=== PATIENT | male | born 1950 | race Caucasian/White ===

== ENCOUNTER → 2018-08-07 | Day surgery (SDC) | payer MEDICARE ==
[2018-08-05 10:10] LABS: BASOPHILS # (AUTO) 0.1 (0.0-0.1); BASOPHILS % 0.7 % (0.0-1.0); EOSINOPHILS # (AUTO) 0.3 (0.0-0.4); EOSINOPHILS % 3.7 % (0.0-6.0); HEMATOCRIT 45.6 % (38.2-49.6); HEMOGLOBIN 14.6 g/dL (14.0-18.0); LYMPHOCYTES # (AUTO) 1.5 (1.0-3.2); LYMPHOCYTES % 22.2 % (18.0-39.1); MEAN CORPUSCULAR VOLUME 87.4 fL (81-99); MONOCYTES # (AUTO) 0.7 (0.2-0.8); MONOCYTES % 10.2 % (4.4-11.3); NEUTROPHILS # (AUTO) 4.4 (2.1-6.9); NEUTROPHILS % 62.9 % (38.7-80.0); PLATELET COUNT 325 x10e3/uL (140-360); RED BLOOD COUNT 5.22 x10e6/uL (4.3-5.7); RED CELL DISTRIBUTION WIDTH 13.2 % (11.7-14.4)
--- NOTE | 2018-08-05 10:11 | Diagnostic Imaging Report ---
PROCEDURE: X-RAY CHEST, TWO VIEWS COMPARISON: None. INDICATIONS: PREOPERATIVE CHEST XRAY FOR SURGERY FINDINGS: LUNGS: No consolidations or edema. PLEURA: No effusions or pneumothorax. A benign-appearing faint pleural opacity in the right midlung zone laterally. HEART & MEDIASTINUM: The heart is within normal size-limits. BONES & SOFT TISSUES: There are degenerative changes of time. CONCLUSION: No acute thoracic abnormality. Jamie Elaine D.O. Dictated by: Jamie Elaine D.O. on 08/05/2018 at 10:21 Electronically approved by: Jamie Elaine D.O. on 08/05/2018 at 10:21
[2018-08-05 10:27] LABS: ANION GAP 14.4 mmol/L (8-16); CALCIUM 9.7 mg/dL (8.4-10.2); CREATININE, SERUM 1.66 mg/dL (0.72-1.25)
[2018-08-05 10:37] LABS: POTASSIUM 5.4 mmol/L (3.5-5.1)
[~2018-08-07] MED LIST: AMLODIPINE BESYL5 MG PO; ATORVASTATIN CA20 MG PO; BUPIVACAINE 0.5%/EPI 30 ML SDV INJ ONE; CEFAZOLIN SOD 2 GM/D5W 50ML 50 ML IV ONE; DEXAMETHASONE SOD PHOS INJ 4 MG/ML VIAL ONE; FENTANYL CITRATE/PF 100MCG/2 ML INJ ONE; GLIMEPIRIDE2 MG PO; HUMALOG100 UNIT/1 SC; KETOROLAC TROMETHAMINE 30 MG/ML VIAL ONE; LEVEMIR100 UNIT/1 SC; LIDOCAINE HCL 2% LOCAL INJ 5 ML SDV VIAL INJ ONE; MIDAZOLAM HCL 2 MG/2 ML VIAL ONE; MYCOPHENOLATE250 MG PO; ONDANSETRON HCL INJ 2 MG/ML VIAL ONE; PROPOFOL IV EMULSION 10 MG/ML 20 ML VIAL ONE; PYRIDOSTIGMINE60 MG PO; SEVOFLURANE INHAL SOLN 250 ML PEN BTL ONE; VITAMIN D31000 UNI2 PO
--- OUTSIDE RECORDS SUMMARY | 2018-08-07 07:07 | XMS REPORT | Continuity of Care Document ---
Author Author [facility] Interface Address Unknown Phone Unavailable Problems Problem Status Onset Date Classification Date Reported Comments Source THOMASON LT EYE VISION ALTERED Active 01/06/2018 [facility] ABILITY TO EAT Active 01/30/2012 [facility] Acute respiratory failure Active 11/19/2011 Problem 02/04/2012 [facility] Acute respiratory failure Active 11/19/2011 Problem 01/11/2018 [facility] UNABLE TO SWALLOW Active 11/18/2011 [facility] CERVCAL DYSPHGIA/787.20 Active 09/26/2011 [facility] DYSPHAGIA Active 09/20/2011 [facility] DYSPHAGIA. Active 09/20/2011 [facility] Diabetes mellitus Active Problem 02/04/2012 [facility] Dysphagia Active Problem 02/04/2012 [facility] GERD - Gastro-esophageal reflux disease Active Problem 02/04/2012 [facility] Hyperlipidemia Active Problem 02/04/2012 [facility] Myasthenia gravis Active Problem 02/04/2012 [facility] Swallowing Active Problem 02/04/2012 [facility] Diabetes mellitus Active Problem 01/11/2018 [facility] Dysphagia Active Problem 01/11/2018 [facility] hyperlipidemia Active Problem 01/11/2018 [facility] Hyperlipidemia Active Problem 01/11/2018 [facility] Myasthenia gravis Active Problem 01/11/2018 [facility] DIABETIC Active Problem 02/04/2014 [facility] HIGH CHOLESTEROL Active Problem 02/04/2014 [facility] MYOSTHENIA GRAVIS Active Problem 02/04/2014 [facility] DYSPHAGIA NOS Active [facility] DYSPHAGIA, ORAL PHASE Active [facility] SCREEN MALIG NEOP-COLON Active [facility] CEREBRAL INFARCTION, UNSPECIFIED Active [facility] Medications Medication Details Route Status Patient Instructions Ordering Provider Order Date Source insulin glargine 55 unit, 0.55 mL, Route: SUB-Q, Drug form: SOLN, Bedtime, Start date: 01/08/18 21:00:00 CDT, Duration: 30 day, Stop date: 02/06/18 21:00:00 CDTNotes: (Same as: Farshad) Do not hold insulin without contac ting prescriber WASTE: F/P - Black; E - Municipal Trash Bin "single patient use only" Inactive 01/09/2018 [facility] Levemir Route: SUB-Q, Bedtime, Dosing Weight 94.261, kg, Start date: 01/08/18 21:00:00 CDT, Duration: 30 day, Stop date: 02/06/18 21:00:00 CDT Inactive 01/09/2018 [facility] atorvastatin 40 mg, 1 tab, Route: PO, Drug form: TAB, Bedtime, Dosing Weight 94.261, kg, Start date: 01/08/18 21:00:00 CDT, Duration: 30 day, Stop date: 02/06/18 21:00:00 CDTNotes: (Same as: Lipitor) Inactive 01/09/2018 [facility] Glucotrol 10 mg, 1 tab, Route: PO, Drug form: TAB, BID, Start date: 01/08/18 17:00:00 CDT, Duration: 30 day, Stop date: 02/07/18 9:00:00 CDTNotes: (Same as: Glucotrol) 30 min before meals. Inactive 01/08/2018 [facility] glimepiride 4 mg, Route: PO, Drug form: TAB, BID, Dosing Weight 94.261, kg, Start date: 01/08/18 17:00:00 CDT, Duration: 30 day, Stop date: 02/07/18 9:00:00 CDT Inactive 01/08/2018 [facility] Amlodipine 5 mg, 1 tab, Route: PO, Drug form: TAB, Daily, Dosing Weight 94.261, kg, Start date: 01/08/18 12:00:00 CDT, Duration: 30 day, Stop date: 02/07/18 9:00:00 CDTNotes: (Same as: Norvasc) Inactive 01/08/2018 [facility] mycophenolate mofetil 500 mg, 2 cap, Route: PO, Drug form: CAP, Q12H, Dosing Weight 94.261, kg, Start date: 01/08/18 12:00:00 CDT, Duration: 30 day, Stop date: 02/07/18 9:00:00 CDTNotes: SEPARATE ANTACIDS from [facility] by 2 hrs. (Same As: CellCept) Inactive 01/08/2018 [facility] Vitamin D3 1000 intl units oral tablet 1,000 IntlUnit, 1 tab, Route: PO, Drug form: TAB, Daily, Dosing Weight 94.261, kg, Start date: 01/08/18 12:00:00 CDT, Duration: 30 day, Stop date: 02/07/18 9:00:00 CDTNotes: Same as : Vitamin D3 Inactive 01/08/2018 [facility] Aspirin 325 mg, 1 tab, Route: PO, Drug form: ECTAB, Daily, Dosing Weight 94.261, kg, Start date: 01/08/18 12:00:00 CDT, Duration: 30 day, Stop date: 02/07/18 9:00:00 CDTNotes: (Do Not Crush) Do not crush or chew. Inactive 01/08/2018 [facility] Aspirin 325 MG Enteric Coated Tablet 325 mg, PO, Daily, # 100 tab, 0 Refill(s), Pharmacy: [place] [id number] Active 01/08/2018 [facility] Insulin Lispro 8 unit, 0.08 mL, Route: SUB-Q, Drug form: SOLN, TID-Before Meals, Dosing Weight 94.261, kg, PRN Blood Glucose Results, Start date: 01/08/18 9:52:00 CDT, Duration: 30 day, Stop date: 02/07/18 9:51:00 CDTNotes: (Same as: Humalog ) Roll in palms of hands gently; Do not shake `vigorously. "Single Patient Use Only " WASTE: F/P - Black; E - Municipal Trash Bin Stable for 28 days at room temperature. Expires in days from Date Inactive 01/08/2018 [facility] Dextrose 50% Syringe 12.5 gm, 25 mL, Route: IVP, Drug Form: INJ, Dosing Weight 94.261, kg, PRN, PRN Blood Glucose Results, Start date: 01/08/18 9:52:00 CDT, Duration: 30 day, Stop date: 02/07/18 9:51:00 CDT Inactive 01/08/2018 [facility] Glucagon 1 mg, Route: IM, Drug form: PDR/INJ, PRN, Dosing Weight 94.261, kg, PRN Blood Glucose Results, Start date: 01/08/18 9:52:00 CDT, Duration: 30 day, Stop date: 02/07/18 9:51:00 CDT Inactive 01/08/2018 [facility] Aspirin 81 MG Enteric Coated Tablet 325 mg, 1 tab, Route: PO, Drug form: ECTAB, Q24H, Dosing Weight 94.591, kg, Start date: 01/07/18 17:00:00 CDT, Duration: 30 day, Stop date: 02/05/18 17:00:00 CDTNotes: (Do Not Crush) Do not crush or chew. No Longer Active 01/07/2018 [facility] mycophenolate mofetil 500 mg oral tablet 500 mg=1 tab, PO, BID, 0 Refill(s) Active 01/07/2018 [facility] Vitamin D3 1000 intl units oral capsule 1,000 IntlUnit=1 cap, PO, Daily, # 100 cap, 0 Refill(s) Active 01/07/2018 [facility] Humalog 15 unit, SUB-Q, TID, 0 Refill(s) Active 01/07/2018 [facility] Levemir 55 units, SUB-Q, Bedtime, 0 Refill(s) Active 01/07/2018 [facility] Amlodipine 5 mg, PO, Daily, 0 Refill(s) Active 01/07/2018 [facility] glimepiride 4 mg oral tablet 4 mg=1 tab, PO, BID, 0 Refill(s) Active 01/07/2018 [facility] atorvastatin 40 mg oral tablet 40 mg=1 tab, PO, Bedtime, # 30 tab, 0 Refill(s) Active 01/07/2018 [facility] Acetaminophen 325 MG Oral Tablet 325 mg, 1 tab, Route: PO, Drug form: TAB, Q6H, Dosing Weight 94.261, kg, PRN Pain Score 1-3, Start date: 01/06/18 22:56:00 CDT, Duration: 30 day, Stop date: 02/05/18 22:55:00 CDTNotes: Do not exceed 4 gm/day. (Same as: Tylenol) No Longer Active 01/07/2018 [facility] Saline Flush 0.9% 10 ml, Route: IVP, Drug Form: INJ, Dosing Weight 94.591, kg, Q12H, Start date: 01/06/18 21:00:00 CDT, Duration: 30 day, Stop date: 02/05/18 9:00:00 CDTNotes: (Same as: BD Posiflush) No Longer Active 01/07/2018 [facility] Famotidine 20 mg, 1 tab, Route: PO, Drug form: TAB, Q12H, Dosing Weight 94.591, kg, Start date: 01/06/18 21:00:00 CDT, Duration: 30 day, Stop date: 02/05/18 9:00:00 CDTNotes: (Same as: Pepcid) No Longer Active 01/07/2018 [facility] atorvastatin 80 mg, 2 tab, Route: PO, Drug form: TAB, Bedtime, Dosing Weight 94.591, kg, Start date: 01/06/18 21:00:00 CDT, Duration: 30 day, Stop date: 02/04/18 21:00:00 CDTNotes: (Same as: Lipitor) No Longer Active 01/07/2018 [facility] Enoxaparin 40 mg, 0.4 mL, Route: SUB-Q, Drug form: INJ, [id number], Dosing Weight 94.591, kg, Start date: 01/06/18 17:00:00 CDT, Duration: 30 day, Stop date: 02/04/18 17:00:00 CDTNotes: (Same as: Lovenox) No Longer Active 01/06/2018 [facility] Aspirin 81 MG Enteric Coated Tablet 81 mg, 1 tab, Route: PO, Drug form: ECTAB, Q24H, Dosing Weight 94.591, kg, Start date: 01/06/18 16:56:00 CDT, Duration: 30 day, Stop date: 02/04/18 16:56:00 CDTNotes: Do not crush or chew. (Same As: Ecotrin) No Longer Active 01/06/2018 [facility] Saline Flush 0.9% 10 ml, Route: IVP, Drug Form: INJ, Dosing Weight 94.591, kg, PRN, PRN Line Flush, Start date: 01/06/18 16:46:00 CDT, Duration: 30 day, Stop date: 02/05/18 16:45:00 CDTNotes: (Same as: BD Posiflush) No Longer Active 01/06/2018 [facility] Ondansetron 4 mg, 2 mL, Route: IVP, Drug form: INJ, Q8H, Dosing Weight 94.591, kg, PRN Nausea & Vomiting, Start date: 01/06/18 16:46:00 CDT, Duration: 30 day, Stop date: 02/05/18 16:45:00 CDTNotes: (Same as: Zofran) MEDICATION WASTE Product Size: 4 mg Product Wasted: ___ mg No Longer Active 01/06/2018 [facility] Aspirin 324 mg, 4 tab, Route: CHEW, Drug form: CHEWTAB, ONCE, Dosing Weight 94.591, kg, Priority: STAT, Start date: 01/06/18 15:55:00 CDT, Stop date: 01/06/18 15:55:00 CDTNotes: Take with food. Inactive 01/06/2018 [facility] Saline Flush 0.9% 10 mL, Route: IVP, Drug Form: INJ, Dosing Weight 77.727, kg, PRN, PRN Line Flush, Start date: 01/06/18 14:35:00 CDT, Duration: 30 day, Stop date: 02/05/18 14:34:00 CDTNotes: (Same as: BD Posiflush) No Longer Active 01/06/2018 [facility] VANO Ophth Combo 1 drops, Soln, Eye-Operative, q5min, order duration: 3 doses, first dose 02/02/14 7:35:00 CDT, stop date 02/02/14 7:49:00 CDTVigamox 0.5%: 0.0375 mL Alphagan 0.1%: 0.0375 mL Nevanac 0.1%: 0.0375 mL Omni pred 1%: 0.0375 mL Total Volume: 0.15 mL *Post Op Compound from [facility]* Inactive Bryce 02/02/2014 [facility] fentaNYL 50 mcg=1 mL, Injection, IV Push, q5min PRN for Pain Mild (1-3), order duration: 2 doses, first dose 02/02/14 7:30:00 CDT, stop date Limited # of times Inactive Tyree 02/02/2014 [facility] Demerol HCl 12.5 mg=0.5 mL, Injection, IV Push, q5min PRN for shivers, order duration: 4 doses, first dose 02/02/14 7:30:00 CDT, stop date Limited # of times Inactive Tyree 02/02/2014 [facility] morphine 2 mg, IV Push, q5min PRN for pain severe (7-10), order duration: 5 doses, first dose 02/02/14 7:30:00 CDT, stop date Limited # of times Inactive Tyree 02/02/2014 [facility] ondansetron 4 mg=2 mL, Injection, IV Push, q30min PRN for nausea/vomiting, order duration: 2 doses, first dose 02/02/14 7:30:00 CDT, stop date Limited # of times Inactive Tyree 02/02/2014 [facility] Misc Medication 400 mL, Soln-IV, IV, Once, first dose 02/02/14 7:28:00 CDT, stop date 02/02/14 7:28:00 CDT Inactive Sydnie 02/02/2014 [facility] fentaNYL 50 mcg=1 mL, Injection, IV, Once, first dose 02/02/14 7:20:00 CDT, stop date 02/02/14 7:20:00 CDT Inactive Sydnie 02/02/2014 [facility] midazolam 1 mg=1 mL, Injection, IV, Once, first dose 02/02/14 7:16:00 CDT, stop date 02/02/14 7:16:00 CDT Inactive Sydnie 02/02/2014 [facility] midazolam 1 mg=1 mL, Injection, IV, Once, first dose 02/02/14 7:08:00 CDT, stop date 02/02/14 7:08:00 CDT Inactive Sydnie 02/02/2014 [facility] fentaNYL 50 mcg=1 mL, Injection, IV, Once, first dose 02/02/14 7:08:00 CDT, stop date 02/02/14 7:08:00 CDT Inactive Sydnie 02/02/2014 [facility] ondansetron 4 mg=2 mL, Injection, IV, Once, first dose 02/02/14 7:07:00 CDT, stop date 02/02/14 7:07:00 CDT Inactive Sydnie 02/02/2014 [facility] tetracaine 0.5% ophthalmic solution 1 drops, Soln, Eye- Operative, Once, first dose 02/02/14 7:00:00 CDT, stop date 02/02/14 7:00:00 CDTCompounded from [facility] Inactive Bryce 02/02/2014 [facility] lidocaine 1% injectable solution 5 mg=0.5 mL, Injection, Subcutaneous, Once, first dose 02/02/14 7:00:00 CDT, stop date 02/02/14 7:00:00 CDT Inactive Tyree 02/02/2014 [facility] mydriatic #4 ophth combo 1 drops, Soln, Eye-Operative, q5min, order duration: 3 doses, first dose 02/02/14 6:20:00 CDT, stop date 02/02/14 6:34:00 CDTPhenylephrine 2.5%: 0.1mL Tropicamide 1%: 0.1mL Gatifloxacin 0.3%: 0.1mL Total Volume: 0.3 mL Inactive Bryce 02/02/2014 [facility] LR 500 mL 500 mL, IV, 100 mL/hr, start date 02/02/14 6:19:00 CDT, Adult Eye Procedures or Pain Inactive Tyree 02/02/2014 [facility] sodium polystyrene sulfonate 15 gm, Oral, Daily, 0 Refill(s) Active 01/31/2014 [facility] VANO Ophth Combo 1 drops, Soln, Eye-Operative, q5min, order duration: 3 doses, first dose 01/05/14 8:55:00 CDT, stop date 01/05/14 9:09:00 CDTVigamox 0.5%: 0.0375 mL Alphagan 0.1%: 0.0375 mL Nevanac 0.1%: 0.0375 mL Omni pred 1%: 0.0375 mL Total Volume: 0.15 mL *Post Op Compound from [facility]* Inactive Bryce 01/05/2014 [facility] Misc Medication 250 mL, Soln-IV, IV, Once, first dose 01/05/14 8:52:00 CDT, stop date 01/05/14 8:52:00 CDT Inactive Denise 01/05/2014 [facility] midazolam 2 mg=2 mL, Injection, IV, Once, first dose 01/05/14 8:23:00 CDT, stop date 01/05/14 8:23:00 CDT Inactive Denise 01/05/2014 [facility] midazolam 1 mg=1 mL, Injection, IV, Once, first dose 01/05/14 8:16:00 CDT, stop date 01/05/14 8:16:00 CDT Inactive Denise 01/05/2014 [facility] fentaNYL 50 mcg=1 mL, Injection, IV, Once, first dose 01/05/14 8:16:00 CDT, stop date 01/05/14 8:16:00 CDT Inactive Denise 01/05/2014 [facility] tetracaine 0.5% ophthalmic solution 1 drops, Soln, Eye- Operative, Once, first dose 01/05/14 8:00:00 CDT, stop date 01/05/14 8:00:00 CDTCompounded from [facility] Inactive Bryce 01/05/2014 [facility] LR 500 mL 500 mL, IV, 100 mL/hr, start date 01/05/14 7:41:00 CDT, Adult Eye Procedures or Pain Inactive Afshinerartie 01/05/2014 [facility] mydriatic #4 ophth combo 1 drops, Soln, Eye-Operative, q5min, order duration: 3 doses, first dose 01/05/14 7:40:00 CDT, stop date 01/05/14 7:54:00 CDTPhenylephrine 2.5%: 0.1mL Tropicamide 1%: 0.1mL Gatifloxacin 0.3%: 0.1mL Total Volume: 0.3 mL Inactive Bryce 01/05/2014 [facility] fenofibrate 145 mg oral tablet 145 mg=1 tabs, Oral, Daily, # 30 tabs, 0 Refill(s) Active 01/04/2014 [facility] glyBURIDE Oral, Daily, 0 Refill(s) Active 01/04/2014 [facility] mycophenolate mofetil 500 mg oral tablet mg tabs, Oral, BID, 0 Refill(s) Active 01/04/2014 [facility] lovastatin 40 mg oral tablet 40 mg=1 tabs, Oral, Daily, # 30 tabs, 0 Refill(s) Active 01/04/2014 [facility] metFORMIN 500 mg oral tablet mg tabs, Oral, BID, 0 Refill(s) Active 01/04/2014 [facility] Lactated Ringers Injection IV 1,000 mL 1,000 mL, Rate: 75 ml/hr, Infuse over: 13.3 hr, Route: IV, Dosing Weight 77.727 kg, Total Volume: 1,000, Start date: 02/02/12 11:00:00, Duration: 30 day, Stop date: 03/03/12 10:59:00 IV No Longer Active Bertram 02/02/2012 [facility] predniSONE 40 mg, 2 tab, Route: PO, Drug form: TAB, Daily, Start date: 12/06/11 9:00:00, Duration: 30 day, Stop date: 01/04/12 9:00:00 PO No Longer Active Larry 12/06/2011 [facility] Levemir FlexPen 10 unit, 0.1 mL, Route: SUB-Q, Drug form: INJ, Bedtime, Start date: 12/04/11 21:00:00, Duration: 30 day, Stop date: 01/02/12 21:00:00 SUB-Q No Longer Active Michael 12/05/2011 [facility] methylPREDNISolone 50 mg, 0.8 mL, Route: IV, Drug form: INJ, Q24H, Start date: 12/04/11 16:00:00, Duration: 30 day, Stop date: 01/02/12 16:00:00 IV No Longer Active Larry 12/04/2011 [facility] methylPREDNISolone 100 mg, 1.6 mL, Route: IV, Drug form: INJ, Q24H, Start date: 12/03/11 21:00:00, Duration: 30 day, Stop date: 01/01/12 21:00:00 IV No Longer Active Larry 12/04/2011 [facility] CellCept 500 mg, 2.5 mL, Route: PEG, Drug form: SOLN, Q12H- 06, Start date: 12/02/11 18:00:00, Duration: 30 day, Stop date: 01/01/12 6:00:00 PEG No Longer Active Larry 12/02/2011 [facility] methylPREDNISolone 250 mg, Route: IV, Drug form: INJ, Q24H, Start date: 12/02/11 17:00:00, Duration: 30 day, Stop date: 12/31/11 17:00:00 IV No Longer Active Larry 12/02/2011 [facility] Mestinon 30 mg, 0.5 tab, Route: PEG, Drug form: TAB, Q8H- 01, Start date: 12/01/11 21:00:00, Stop date: 12/31/11 9:00:00 PEG No Longer Active Larry 12/02/2011 [facility] meperidine 50 mg, 1 mL, Route: IV, Drug form: INJ, Q4H, PRN Other -See Comment, Start date: 12/01/11 16:15:00, Duration: 4 day, Stop date: 12/05/11 16:14:00 IV No Longer Active Larry 12/01/2011 [facility] Lactated Ringers Injection IV 1,000 mL 1,000 mL, Rate: TITRATE PER MD, Route: IV, Dosing Weight 73.007 kg, Total Volume: 1,000, Start date: 12/01/11 13:14:00, Duration: 6 hr, Stop date: 12/01/11 19:13:00 IV No Longer Active Bertram 12/01/2011 [facility] methylPREDNISolone 800 mg, Route: IV, Drug form: INJ, QPM, Start date: 11/30/11 17:00:00, Duration: 30 day, Stop date: 12/29/11 17:00:00 IV No Longer Active Larry 11/30/2011 [facility] glucagon 1 mg, Route: SUB-Q, Drug form: PDR/INJ, Sliding Scale, PRN Blood Glucose Results, Start date: 11/29/11 19:32:00, Duration: 30 day, Stop date: 12/29/11 19:31:00 SUB-Q No Longer Active Larry 11/30/2011 [facility] Dextrose 50% in Water IV 50 mL, Route: IVP, Start date: 11/29/11 19:32:00, Duration: 30 day, Stop date: 12/29/11 19:31:00, PRN Blood Glucose Results IVP No Longer Active Larry 11/30/2011 [facility] Dextrose 50% in Water IV 25 mL, Route: IVP, Start date: 11/29/11 19:31:00, Duration: 30 day, Stop date: 12/29/11 19:30:00, PRN Blood Glucose Results IVP No Longer Active Larry 11/30/2011 [facility] NovoLog FlexPen 14 unit, 0.14 mL, Route: SUB-Q, Drug form: SOLN, Sliding Scale, PRN Blood Glucose Results, Start date: 11/29/11 19:31:00, Duration: 30 day, Stop date: 12/29/11 19:30:00 SUB-Q No Longer Active Larry 11/30/2011 [facility] Sodium Chloride 0.9% IV 1,000 mL 1,000 mL, Rate: 40 ml/hr, Infuse over: 25 hr, Route: IV, Dosing Weight 73.007 kg, Total Volume: 1,000, Start date: 11/27/11 15:22:00, Stop date: 12/27/11 15:21:00 IV No Longer Active Michael 11/27/2011 [facility] lactulose 20 gm, 30 mL, Route: PO, Drug form: SYRP, ONCE, Start date: 11/26/11 12:30:00, Stop date: 11/26/11 12:30:00 PO No Longer Active Larry 11/26/2011 [facility] docusate sodium 150 mg/15 mL oral liquid 100 mg, 10 mL, Route: NG, Drug form: LIQ, BID, Start date: 11/26/11 12:00:00, Duration: 30 day, Stop date: 12/26/11 9:00:00 NG No Longer Active Lrary 11/26/2011 [facility] lactulose 20 gm, 30 mL, Route: PO, Drug form: SYRP, Q12H, PRN Constipation, Start date: 11/26/11 11:39:00, Duration: 30 day, Stop date: 12/26/11 11:38:00 PO No Longer Active Larry 11/26/2011 [facility] Insulin regular 100 unit + Sodium Chloride 0.9% IV 99 mL 99 mL, Rate: follow MICU/IMCU insulin drip Protocol, Route: IV, Dosing Weight 73.007 kg, Total Volume: 100, Start date: 11/26/11 7:26:00, Duration: 30 day, Stop date: 12/26/11 7:25:00 IV No Longer Active Larry 11/26/2011 [facility] methylPREDNISolone 1,000 mg, Route: IV, Drug form: INJ, Q24H, Start date: 11/25/11 16:00:00, Duration: 30 day, Stop date: 12/24/11 16:00:00 IV No Longer Active Larry 11/25/2011 [facility] NovoLog FlexPen 17 unit, 0.17 mL, Route: SUB-Q, Drug form: SOLN, Sliding Scale, PRN Blood Glucose Results, Start date: 11/25/11 15:31:00, Duration: 30 day, Stop date: 12/25/11 15:30:00 SUB-Q No Longer Active Larry 11/25/2011 [facility] NovoLog FlexPen 7 unit, 0.07 mL, Route: SUB-Q, Drug form: SOLN, Sliding Scale, PRN Blood Glucose Results, Start date: 11/25/11 15:30:00, Duration: 30 day, Stop date: 12/25/11 15:29:00 SUB-Q No Longer Active Larry 11/25/2011 [facility] Mestinon 60 mg, 1 tab, Route: NG, Drug form: TAB, Q12H, Start date: 11/24/11 15:00:00, Duration: 30 day, Stop date: 12/24/11 9:00:00 NG No Longer Active Larry 11/24/2011 [facility] methylPREDNISolone 1,000 mg, Route: IV, Drug form: INJ, ONCE, Start date: 11/24/11 15:00:00, Stop date: 11/24/11 15:00:00 IV No Longer Active Larry 11/24/2011 [facility] Lovenox 40 mg, 0.4 mL, Route: SUB-Q, Drug form: INJ, [id number], Start date: 11/24/11 14:00:00, Duration: 30 day, Stop date: 12/23/11 14:00:00 SUB-Q No Longer Active Larry 11/24/2011 [facility] DuoNeb inhalation solution 3 mL, Route: NEB, Drug Form: SOLN, RQ6H, Start date: 11/24/11 14:00:00, Duration: 30 day, Stop date: 12/24/11 8:00:00 NEB No Longer Active Larry 11/24/2011 [facility] acetylcysteine 600 mg, 3 mL, Route: NEB, Drug Form: SOLN, RQ6H, Start date: 11/23/11 20:00:00, Duration: 30 day, Stop date: 12/23/11 14:00:00 NEB No Longer Active Larry 11/24/2011 [facility] methylPREDNISolone 125 mg, 2 mL, Route: IV, Drug form: INJ, ONCE, Start date: 11/23/11 19:00:00, Stop date: 11/23/11 19:00:00 IV No Longer Active Larry 11/24/2011 [facility] potassium chloride 40 mEq, 30 mL, Route: PO, Drug form: LIQ, ONCE, Start date: 11/23/11 11:00:00, Stop date: 11/23/11 11:00:00 PO No Longer Active Larry 11/23/2011 [facility] lactulose 20 gm, 30 mL, Route: PO, Drug form: SYRP, ONCE, Start date: 11/22/11 18:00:00, Stop date: 11/22/11 18:00:00 PO No Longer Active Larry 11/22/2011 [facility] lactulose 20 gm, 30 mL, Route: PO, Drug form: SYRP, Bedtime, PRN Constipation, Start date: 11/22/11 16:55:00, Stop date: 11/22/11 23:59:00 PO No Longer Active Larry 11/22/2011 [facility] midazolam 50 mg IV, Start date: 11/20/11 18:47:00, Duration: 30, 50 ml IV No Longer Active Larry 11/20/2011 [facility] Protonix 40 mg, Route: IVP, Drug form: INJ, Before Dinner, Start date: 11/20/11 16:30:00, Duration: 30 day, Stop date: 12/19/11 16:30:00 IVP No Longer Active Larry 11/20/2011 [facility] Sodium Chloride 0.45% IV 1,000 mL 1,000 mL, Rate: 40 ml/hr, Infuse over: 25 hr, Route: IV, Dosing Weight 73 kg, Total Volume: 1,000, Start date: 11/20/11 12:58:00, Stop date: 12/20/11 12:57:00 IV No Longer Active Lrary 11/20/2011 [facility] albuterol 2.5 mg, 0.5 mL, Route: INHALATION, Drug form: SOLN, RQ6H, Start date: 11/19/11 20:00:00, Duration: 30 day, Stop date: 12/19/11 14:00:00 INHALATION No Longer Active Larry 11/20/2011 [facility] sodium chloride 0.9% Inhalation 3 mL, Route: INHALATION, Drug Form: MISC, RQ6H, Start date: 11/19/11 20:00:00, Duration: 30 day, Stop date: 12/19/11 14:00:00 INHALATION No Longer Active Larry 11/20/2011 [facility] Merrem 500 mg, Route: IVPB, [id number], Start date: 11/19/11 18:00:00, Duration: 30 day, Stop date: 12/19/11 16:00:00 IVPB No Longer Active Larry 11/19/2011 [facility] succinylcholine 100 mg, 5 mL, Route: IV, Drug form: INJ, ONCE, Start date: 11/19/11 18:00:00, Stop date: 11/19/11 18:00:00 IV No Longer Active Larry 11/19/2011 [facility] midazolam 2 mg, 2 mL, Route: IV, Drug form: INJ, ONCE, Start date: 11/19/11 18:00:00, Stop date: 11/19/11 18:00:00 IV No Longer Active Larry 11/19/2011 [facility] Privigen 30 gm, 300 mL, Route: IVPB, Drug form: SOLN, QPM, Start date: 11/19/11 18:00:00, Duration: 5 doses or times, Stop date: 11/23/11 17:00:00 IVPB No Longer Active Larry 11/19/2011 [facility] propofol 10 mg/ml (titrate) 1,000 mg IV, Start date: 11/19/11 17:34:00, Duration: 30, 100 ml IV No Longer Active Larry 11/19/2011 [facility] Protonix 40 mg, Route: IV, Drug form: INJ, Q12H, Start date: 11/19/11 12:00:00, Duration: 30 day, Stop date: 12/19/11 9:00:00 IV No Longer Active Bertram 11/19/2011 [facility] pneumococcal 23-valent vaccine 0.5 ml, Route: IM, Drug Form: INJ, Start date: 11/19/11 9:00:00, Stop date: 11/19/11 9:00:00 IM No Longer Active SYSTEM 11/19/2011 [facility] influenza virus vaccine, inactivated 0.5 mL, Route: IM, Drug Form: INJ, Start date: 11/19/11 9:00:00, Stop date: 11/19/11 9:00:00 IM No Longer Active SYSTEM 11/19/2011 [facility] glucagon 1 mg, Route: SUB-Q, Drug form: PDR/INJ, Sliding Scale, PRN Blood Glucose Results, Start date: 11/18/11 20:43:00, Duration: 30 day, Stop date: 12/18/11 20:42:00 SUB-Q No Longer Active Larry 11/19/2011 [facility] Dextrose 50% in Water IV 50 mL, Route: IVP, Start date: 11/18/11 20:43:00, Duration: 30 day, Stop date: 12/18/11 20:42:00, PRN Blood Glucose Results IVP No Longer Active Larry 11/19/2011 [facility] NovoLog FlexPen 15 unit, 0.15 mL, Route: SUB-Q, Drug form: SOLN, Sliding Scale, PRN Blood Glucose Results, Start date: 11/18/11 20:43:00, Duration: 30 day, Stop date: 12/18/11 20:42:00 SUB-Q No Longer Active [facility] 11/19/2011 [facility] NovoLog FlexPen 11 unit, 0.11 mL, Route: SUB-Q, Drug form: SOLN, Sliding Scale, PRN Blood Glucose Results, Start date: 11/18/11 20:42:00, Duration: 30 day, Stop date: 12/18/11 20:41:00 SUB-Q No Longer Active Larry 11/19/2011 [facility] Sodium Chloride 0.9% IV 1,000 mL 1,000 mL, Rate: 100 ml/hr, Infuse over: 10 hr, Route: IV, kg, Total Volume: 1,000, Start date: 11/18/11 20:42:00, Duration: 30 day, Stop date: 12/19/11 14:08:00 IV No Longer Active Larry 11/19/2011 [facility] BD Normal Saline Flush 10 mL, Route: IV, Drug Form: INJ, PRN, PRN Line Flush, Start date: 11/18/11 20:41:00, Duration: 30 day, Stop date: 12/18/11 20:40:00 IV No Longer Active Larry 11/19/2011 [facility] Saline Flush 0.9% 5 ml, Route: IVP, Drug Form: INJ, PRN, PRN Line Flush, Start date: 11/18/11 18:25:00, Duration: 24 hr, Stop date: 11/19/11 18:24:00 IVP No Longer Active [place] 11/18/2011 [facility] NS (Bolus) IV 1,000 mL 1,000 mL, Rate: 100 ml/hr, Infuse over: 10 hr, Route: IV, Dosing Weight 70.455 kg, Total Volume: 1,000, Start date: 11/18/11 16:20:00, Duration: 1 day, Stop date: 11/19/11 16:19:00 IV No Longer Active [place] 11/18/2011 [facility] Kalexate Substitution Allowed Active 11/18/2011 [facility] lisinopril Substitution Allowed Active 11/18/2011 [facility] pyridostigmine Substitution Allowed Active 11/18/2011 [facility] Crestor Substitution Allowed Active 11/18/2011 [facility] glyBURIDE Substitution Allowed Active 11/18/2011 [facility] metFORmin Substitution Allowed Active 11/18/2011 [facility] lidocaine 0.1 mL, Route: INJ, Drug form: INJ, ONCALL, Start date: 09/25/11 9:00:00, Duration: 6 hr, Stop date: 09/25/11 14:59:00 INJ No Longer Active [place] 09/25/2011 [facility] Sodium Chloride 0.45% IV 1,000 mL 1,000 mL, Rate: DIRECTED, Rate: 0 ml/hr, Infuse over: 0, Route: IV, Total Volume: 1,000, Start date: 09/25/11 8:35:00, Duration: 6 hr, Stop date: 09/25/11 14:34:00 IV No Longer Active [place] 09/25/2011 [facility] Allergies, Adverse Reactions, Alerts Substance Category Reaction Severity Reaction type Status Date Reported Comments Source No Known Medication Allergies drug allergy Allergy [facility] Immunizations Immunization Date Given Site Status Last Updated Comments Source pneumococcal 23-valent vaccine 11/19/2011 Not Given [facility] influenza virus vaccine, inactivated 11/19/2011 [facility] [address] [facility] Results Order Name Results Value Reference Range Date Interpretation Comments Source Brain wo contrast MRA Brain wo contrast MRA Patient Name: SHYANN NAPIER : 1950. Age: 67 years. Gender: Male. MR: [id number]. Location: [facility]. Provider: MD Jesse Timmons MD. EXAM: 1. Brain wo contrast MRI 2. Brain wo contrast MRA. PROVIDED CLINICAL HISTORY: Stroke. Headache. Vision changes. TECHNIQUE: -- MR Brain: Multi-sequence, multi-planar MR of the brain without gadolinium contrast. -- MRA Brain: [id number] MR angiography of the [place] and intracranial arteries. MIP reformats. COMPARISON: CT Brain performed FINDINGS: MR BRAIN: BRAIN: -- ADC map-confirmed restricted diffusion, consistent with acute infarct, involving a substantial portion of the the right posterior cerebral artery territory. No other definite areas of abnormally-restricted diffusion. -- Few subcentimeter foci of abnormally increased T2 and FLAIR signal scattered throughout the supratentorial subcortical and periventricular deep white matter bilaterally, non-specific but most commonly due to early chronic small vessel ischemic disease. -- No intracranial hemorrhage. No other fluid collection. No intracranial mass. No cerebellar tonsillar ectopia. Age-consistent brain parenchymal volume. VENTRICLES / CISTERNS / SHIFT: No hydrocephalus. No significant effacement of the basal cisterns or foramen magnum. No significant midline shift. VESSELS: No loss of flow voids within the major intracranial vessels or dural sinuses. Vessel and dural sinus patency are not adequately assessed without dedicated angiography or venography. BONES / SCALP: No acute fracture. No significant systemic marrow signal abnormality. No aggressive bony lesions. No significant extracranial soft tissue abnormality. IMAGED SINUSES / MASTOIDS: No significant sinus mucosal thickening. No significant paranasal sinus fluid. No significant mastoid signal abnormality. MRA BRAIN: GENERAL ASSESSMENT: -- The [place], petrous and cavernous segments of the internal carotid arteries, the middle (M1, M2), anterior (A1, A2), and posterior (P1, P2) cerebral arteries, the basilar artery, and the imaged distal vertebral arteries are evaluated. Significant stenoses and aneurysms are detailed below. -- No definite evidence of malformation, dissection, or other significant abnormality of the imaged arteries. STENOSIS / OCCLUSION: No significant flow-limiting stenosis. No abrupt termination of flow suggestive of occlusion. ANEURYSM: No definite intracranial aneurysm. Limited exam sensitivity and specificity for aneurysms smaller than 0.3 cm. VARIANT ANATOMY: No right or left posterior communicating artery is identified. IMPRESSION (MR Brain, MRA Brain): 1. 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 2. No intracranial mass or hemorrhage. 3. Mild chronic microangiopathic ischemic gliosis. 4. No significant abnormality of the intracranial arteries. SL: [id number] 01/07/2018 - - Read by: Jayesh Simmons MD Dictated Date/time: 01/07/18 12:30 Electronically Signed by: Jayesh Simmons MD 01/07/18 13:09 FINAL REPORT [facility] Brain wo contrast MRI Brain wo contrast MRI Patient Name: SHYANN NAPIER : 1950. Age: 67 years. Gender: Male. MR: [id number]. Location: [facility]. Provider: MD Jesse Timmons MD. EXAM: 1. Brain wo contrast MRI 2. Brain wo contrast MRA. PROVIDED CLINICAL HISTORY: Stroke. Headache. Vision changes. TECHNIQUE: -- MR Brain: Multi-sequence, multi-planar MR of the brain without gadolinium contrast. -- MRA Brain: [id number] MR angiography of the [place] and intracranial arteries. MIP reformats. COMPARISON: CT Brain performed FINDINGS: MR BRAIN: BRAIN: -- ADC map-confirmed restricted diffusion, consistent with acute infarct, involving a substantial portion of the the right posterior cerebral artery territory. No other definite areas of abnormally-restricted diffusion. -- Few subcentimeter foci of abnormally increased T2 and FLAIR signal scattered throughout the supratentorial subcortical and periventricular deep white matter bilaterally, non-specific but most commonly due to early chronic small vessel ischemic disease. -- No intracranial hemorrhage. No other fluid collection. No intracranial mass. No cerebellar tonsillar ectopia. Age-consistent brain parenchymal volume. VENTRICLES / CISTERNS / SHIFT: No hydrocephalus. No significant effacement of the basal cisterns or foramen magnum. No significant midline shift. VESSELS: No loss of flow voids within the major intracranial vessels or dural sinuses. Vessel and dural sinus patency are not adequately assessed without dedicated angiography or venography. BONES / SCALP: No acute fracture. No significant systemic marrow signal abnormality. No aggressive bony lesions. No significant extracranial soft tissue abnormality. IMAGED SINUSES / MASTOIDS: No significant sinus mucosal thickening. No significant paranasal sinus fluid. No significant mastoid signal abnormality. MRA BRAIN: GENERAL ASSESSMENT: -- The [place], petrous and cavernous segments of the internal carotid arteries, the middle (M1, M2), anterior (A1, A2), and posterior (P1, P2) cerebral arteries, the basilar artery, and the imaged distal vertebral arteries are evaluated. Significant stenoses and aneurysms are detailed below. -- No definite evidence of malformation, dissection, or other significant abnormality of the imaged arteries. STENOSIS / OCCLUSION: No significant flow-limiting stenosis. No abrupt termination of flow suggestive of occlusion. ANEURYSM: No definite intracranial aneurysm. Limited exam sensitivity and specificity for aneurysms smaller than 0.3 cm. VARIANT ANATOMY: No right or left posterior communicating artery is identified. IMPRESSION (MR Brain, MRA Brain): 1. 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 2. No intracranial mass or hemorrhage. 3. Mild chronic microangiopathic ischemic gliosis. 4. No significant abnormality of the intracranial arteries. SL: [id number] 01/07/2018 - - Read by: Jayesh Simmons MD Dictated Date/time: 01/07/18 12:30 Electronically Signed by: Jayesh Simmosn MD 01/07/18 13:09 FINAL REPORT [facility] Carotid artery Doppler bilat Carotid artery Doppler bilat Patient Name: SHYANN NAPIER : 1950; Age: 67 years Male MR: [id number] Study: Carotid artery Doppler bilat US 01/06/2018 4:46 PM CDT CLINICAL INDICATION: - CVA. COMPARISON: None TECHNIQUE: Meyer-scale, color Doppler and spectral Doppler of the carotid arteries was performed. Any reported ICA stenoses indirectly references the distal internal carotid diameter as the denominator for the stenosis measurement, utilizing consensus panel criteria. FINDINGS: RIGHT: Mild calcified plaque within the carotid bulb ICA PSV 73.3 cm/sec CCA PSV 61.5 cm/sec ICA/CCA ratio 1.2 Vertebral flow is antegrade. External carotid artery is patent. LEFT: Mild calcified plaque within the carotid bulb ICA PSV 70.7 cm/sec CCA PSV 84.3 cm/sec ICA/CCA ratio 0.84 Vertebral flow is antegrade. External carotid artery is patent. IMPRESSION: RIGHT: ICA stenosis <50% by velocity criteria. LEFT: ICA stenosis <50% by velocity criteria. Consensus panel Doppler US criteria for diagnosis of ICA stenosis: Stenosis (%) ICA PSV (cm/sec) ICA/CCA ratio <50 <125 <2.0 50-69 125-230 2.0-4.0 >70 but less than >230 >4.0 near occlusion Near occlusion High, low, or Variable undetectable SL: MOE 01/06/2018 - - Read by: Nakul Richard MD Dictated Date/time: 01/06/18 22:29 Electronically Signed by: Nakul Richard MD 01/06/18 22:30 FINAL REPORT [facility] CARDIAC ENZYMES Total CK 245 unit/L 12 - 191 01/06/2018 [facility] CARDIAC ENZYMES Troponin-I null 0.00 - 0.40 01/06/2018 [facility] ELECTROLYTES AGAP 9.6 meq/L 10.0 - 20.0 01/06/2018 [facility] ELECTROLYTES eGFR 36 mL/min/1.73m2 01/06/2018 Result Comment: The eGFR is calculated using the CKD-EPI formula. In most young, healthy individuals the eGFR will be >90 mL/min/1.73m2. The eGFR declines with age. An eGFR of 60-89 may be normal in some populations, particularly the elderly, for whom the CKD-EPI formula has not been extensively validated. Use of the eGFR is not recommended in the following populations: Individuals with unstable creatinine concentrations, including patients and those with serious co-morbid conditions. Patients with extremes in muscle mass or diet. The data above are obtained from the National Kidney Disease Education Program (NKDEP) which additionally recommends that when the eGFR is used in patients with extremes of body mass index for purposes of drug dosing, the eGFR should be multiplied by the estimated BMI. [facility] ELECTROLYTES CO2 28 meq/L 24 - 32 01/06/2018 [facility] ELECTROLYTES Chloride Lvl 106 meq/L 95 - 109 01/06/2018 [facility] ELECTROLYTES Potassium Lvl 4.6 meq/L 3.5 - 5.1 01/06/2018 [facility] ELECTROLYTES Sodium Lvl 139 meq/L 135 - 145 01/06/2018 [facility] ELECTROLYTES Creatinine Lvl 1.88 mg/dL 0.50 - 1.40 01/06/2018 [facility] ELECTROLYTES BUN 23 mg/dL 7 - 22 01/06/2018 [facility] ELECTROLYTES Glucose Lvl 223 mg/dL 70 - 99 01/06/2018 [facility] ELECTROLYTES Calcium Lvl 8.9 mg/dL 8.5 - 10.5 01/06/2018 [facility] PT 13.6 s 12.0 - 14.7 01/06/2018 [facility] INR 1.04 0.85 - 1.17 01/06/2018 [facility] PTT 27.5 s 22.9 - 35.8 01/06/2018 [facility] Platelet 285 K/CMM 133 - 450 01/06/2018 [facility] RDW 14.3 % 11.5 - 14.5 01/06/2018 [facility] MPV 9.1 fL 7.4 - 10.4 01/06/2018 [facility] MCV 84.7 fL 80.0 - 94.0 01/06/2018 [facility] MCHC 33.1 g/dL 32.0 - 36.0 01/06/2018 [facility] MCH 28.1 pg 27.0 - 31.0 01/06/2018 [facility] Hct 48.3 % 42.0 - 54.0 01/06/2018 [facility] Hgb 16.0 g/dL 14.0 - 18.0 01/06/2018 [facility] WBC 7.7 K/CMM 3.7 - 10.4 01/06/2018 [facility] HEMATOLOGY RBC 5.70 M/CMM 4.70 - 6.10 01/06/2018 [facility] HEMATOLOGY Segs 78.4 % 45.0 - 75.0 01/06/2018 [facility] HEMATOLOGY Basophils 0.6 % 0.0 - 1.0 01/06/2018 [facility] HEMATOLOGY Lymphocytes 13.3 % 20.0 - 40.0 01/06/2018 [facility] HEMATOLOGY Monocytes 7.3 % 2.0 - 12.0 01/06/2018 [facility] HEMATOLOGY Lymphocytes # 1.0 K/CMM 1.0 - 5.5 01/06/2018 [facility] HEMATOLOGY Monocytes # 0.6 K/CMM 0.0 - 0.8 01/06/2018 [facility] HEMATOLOGY Segs-Bands # 6.1 K/CMM 1.5 - 8.1 01/06/2018 [facility] HEMATOLOGY Eosinophils 0.4 % 0.0 - 4.0 01/06/2018 [facility] LIPIDS CHD Risk 2.72 4.00 - 7.30 01/06/2018 [facility] LIPIDS HDL 47 mg/dL >=61 mg/dL 01/06/2018 [facility] LIPIDS Trig 235 mg/dL <=149 mg/dL 01/06/2018 [facility] LIPIDS Chol 128 mg/dL <=199 mg/dL 01/06/2018 [facility] LIPIDS LDL (Calculated) 34 mg/dL <=99 mg/dL 01/06/2018 [facility] LIPIDS VLDL 47 01/06/2018 [facility] SPECIAL CHEMISTRY Hgb A1C 6.9 % <=5.6 % 01/06/2018 [facility] Chest 1view DX Chest 1view DX Clinical Indication: - weakness Comparison: 11/29/2011 FINDINGS: HEART: Mild cardiomegaly. PULMONARY VASCULATURE: Mild pulmonary vasculature congestion versus perihilar nonspecific airspace opacity. LUNGS: Lung volumes are maintained. There are no pneumothoraces noted. Costophrenic sulci: -Right costophrenic sulcus: The right costophrenic sulcus is sharp without evidence for pleural effusions or thickening. -Left costophrenic sulcus: The left costophrenic sulcus is sharp without evidence for pleural effusions or thickening. BONES: The visualized osseous structures are unremarkable. IMPRESSION: 1. Mild cardiomegaly with mild pulmonary vascular congestion versus nonspecific airspace infiltrate, worse. SL: [id number] 01/06/2018 - - Read by: Petar Martins DO Dictated Date/time: 01/06/18 16:15 Electronically Signed by: Petar Martins DO 01/06/18 16:19 FINAL REPORT [facility] Brain wo contrast CT Brain wo contrast CT CT HEAD WITHOUT CONTRAST: HISTORY: Headache. Vision changes. PROCEDURE: Multiple axial images from the skull base to the skull vertex were obtained without contrast. Coronal and sagittal reconstructed images were performed. DLP: 1058 mGy-cm COMPARISON: None FINDINGS: 4.3 cm area of decreased density in the inferior right occipital lobe is ill-defined and demonstrates mild mass effect due to edema. No other area of decreased density is identified. No acute hemorrhage, midline shift, extra-axial fluid collection, or hydrocephalus is present. The visualized mastoid air cells are clear. There is no air-fluid level in the visualized paranasal sinuses. Distal internal carotid arterial calcifications are present. IMPRESSION: Acute (or subacute) nonhemorrhagic infarct in inferior right occipital lobe. SL: [id number] 01/06/2018 - - Read by: Karlo Piña MD Dictated Date/time: 01/06/18 15:13 Electronically Signed by: Karlo Piña MD 01/06/18 15:15 FINAL REPORT [facility] BEDSIDE GLUCOSE TESTING Gluc POC Lifscn 197 mg/dL 70 - 99 12/08/2011 [place] 2Interpretive Data: Upper Reportable Limit: 200 mg/dL. [facility] BEDSIDE GLUCOSE TESTING Gluc POC Lifscn 129 mg/dL 70 - 99 12/08/2011 [place] 3Interpretive Data: Upper Reportable Limit: 200 mg/dL. [facility] BEDSIDE GLUCOSE TESTING Gluc POC Lifscn 82 mg/dL 70 - 99 12/08/2011 Normal 4Interpretive Data: Upper Reportable Limit: 200 mg/dL. [facility] BEDSIDE GLUCOSE TESTING Comment1 Notify RN 12/05/2011 NA [facility] BEDSIDE GLUCOSE TESTING Comment1 Notify RN 12/05/2011 NA [facility] BEDSIDE GLUCOSE TESTING Comment1 Notify RN 12/05/2011 NA [facility] CHEMISTRY CO2 32 meq/L 24 - 32 12/05/2011 Normal [facility] CHEMISTRY Total Protein 5.6 g/dL 6.4 - 8.4 12/05/2011 LOW [facility] CHEMISTRY Calcium Lvl 7.3 mg/dL 8.5 - 10.5 12/05/2011 LOW [facility] CHEMISTRY Albumin Lvl 2.0 g/dL 3.5 - 5.0 12/05/2011 LOW [facility] CHEMISTRY ALT 238 U/L 0 - 65 12/05/2011 [facility] CHEMISTRY Alk Phos 95 U/L 39 - 136 12/05/2011 Normal [facility] CHEMISTRY Bili Total 0.4 mg/dL 0.2 - 1.3 12/05/2011 Normal [facility] CHEMISTRY AST 96 U/L 0 - 37 12/05/2011 [facility] CHEMISTRY Potassium Lvl 3.9 meq/L 3.5 - 5.1 12/05/2011 Normal [facility] CHEMISTRY Chloride Lvl 106 meq/L 95 - 109 12/05/2011 Normal [facility] CHEMISTRY Glucose Lvl 139 mg/dL 70 - 99 12/05/2011 [place] 5Interpretive Data: Adult reference range values reflect the clinical guidelinesof the [place] [employer]. [facility] CHEMISTRY BUN 31 mg/dL 7 - 22 12/05/2011 [facility] CHEMISTRY Creatinine Lvl 0.9 mg/dL 0.5 - 1.4 12/05/2011 Normal [facility] CHEMISTRY Sodium Lvl 142 meq/L 135 - 145 12/05/2011 Normal [facility] CHEMISTRY Globulin 3.6 g/dL 2.0 - 4.0 12/05/2011 Normal [facility] CHEMISTRY A/G Ratio 0.6 0.7 - 1.6 12/05/2011 LOW [facility] CHEMISTRY AGAP 7.9 meq/L 10.0 - 20.0 12/05/2011 LOW [facility] CHEMISTRY B/C Ratio 34 6 - 25 12/05/2011 [facility] HEMATOLOGY Lymphocytes # 0.8 K/CMM 1.0 - 5.5 12/05/2011 LOW [facility] HEMATOLOGY Eosinophils 1.1 % 0.0 - 4.0 12/05/2011 Normal [facility] HEMATOLOGY Basophils 0.2 % 0.0 - 1.0 12/05/2011 Normal [facility] HEMATOLOGY Segs-Bands # 5.0 K/CMM 1.5 - 8.1 12/05/2011 Normal [facility] HEMATOLOGY Basophils # 0.0 K/CMM 0.0 - 0.2 12/05/2011 Normal [facility] HEMATOLOGY Eosinophils # 0.1 K/CMM 0.0 - 0.5 12/05/2011 Normal [facility] HEMATOLOGY Monocytes # 0.4 K/CMM 0.0 - 0.8 12/05/2011 Normal [facility] HEMATOLOGY Segs 79.8 % 45.0 - 75.0 12/05/2011 [facility] HEMATOLOGY Monocytes 6.2 % 2.0 - 12.0 12/05/2011 Normal [facility] HEMATOLOGY Lymphocytes 12.7 % 20.0 - 40.0 12/05/2011 LOW [facility] HEMATOLOGY Platelet 170 K/CMM 133 - 450 12/05/2011 Normal [facility] HEMATOLOGY MPV 8.6 fL 7.4 - 10.4 12/05/2011 Normal [facility] HEMATOLOGY MCHC 34.0 g/dL 32.0 - 36.0 12/05/2011 Normal [facility] HEMATOLOGY RDW 14.5 % 11.5 - 14.5 12/05/2011 Normal [facility] HEMATOLOGY WBC 6.3 K/CMM 3.7 - 10.4 12/05/2011 Normal [facility] HEMATOLOGY RBC 3.75 M/CMM 4.70 - 6.10 12/05/2011 LOW [facility] HEMATOLOGY Hgb 11.1 g/dL 14.0 - 18.0 12/05/2011 LOW [facility] HEMATOLOGY MCV 87.1 fL 80.0 - 94.0 12/05/2011 Normal [facility] HEMATOLOGY Hct 32.6 % 42.0 - 54.0 12/05/2011 LOW [facility] HEMATOLOGY MCH 29.7 pg 27.0 - 31.0 12/05/2011 Normal [facility] CHEMISTRY Hgb A1C 5.6 % 12/04/2011 NA 9Interpretive Data: HbA1C% eAG(mg/dL) Interpretation 6.0 126 Very good control 6.5 140 Very good control 7.0 154 Good Control 7.5 169 Good Control 8.0 183 Marginal Control, take action to lower 8.5 197 Marginal Control, take action to lower 9.0 212 Poor Control, take action to lower 9.5 226 Poor Control, take action to lower10.0 240 Poor Control, take action to lower [facility] CHEMISTRY A/G Ratio 0.6 0.7 - 1.6 12/04/2011 LOW [facility] CHEMISTRY AGAP 9.3 meq/L 10.0 - 20.0 12/04/2011 LOW [facility] CHEMISTRY Globulin 3.8 g/dL 2.0 - 4.0 12/04/2011 Normal [facility] CHEMISTRY B/C Ratio 43 6 - 25 12/04/2011 [facility] CHEMISTRY AST 178 U/L 0 - 37 12/04/2011 [facility] CHEMISTRY CO2 30 meq/L 24 - 32 12/04/2011 Normal [facility] CHEMISTRY Potassium Lvl 4.3 meq/L 3.5 - 5.1 12/04/2011 Normal [facility] CHEMISTRY Chloride Lvl 109 meq/L 95 - 109 12/04/2011 Normal [facility] CHEMISTRY Sodium Lvl 144 meq/L 135 - 145 12/04/2011 Normal [facility] CHEMISTRY BUN 39 mg/dL 7 - 22 12/04/2011 [facility] CHEMISTRY Creatinine Lvl 0.9 mg/dL 0.5 - 1.4 12/04/2011 Normal [facility] CHEMISTRY Glucose Lvl 207 mg/dL 70 - 99 12/04/2011 [place] 6Interpretive Data: Adult reference range values reflect the clinical guidelinesof the [place] [employer]. [facility] CHEMISTRY Bili Total 0.6 mg/dL 0.2 - 1.3 12/04/2011 Normal [facility] CHEMISTRY Alk Phos 120 U/L 39 - 136 12/04/2011 Normal [facility] CHEMISTRY ALT 346 U/L 0 - 65 12/04/2011 [facility] CHEMISTRY Total Protein 5.9 g/dL 6.4 - 8.4 12/04/2011 LOW [facility] CHEMISTRY Albumin Lvl 2.1 g/dL 3.5 - 5.0 12/04/2011 LOW [facility] CHEMISTRY Calcium Lvl 7.7 mg/dL 8.5 - 10.5 12/04/2011 LOW [facility] HEMATOLOGY Monocytes # 0.2 K/CMM 0.0 - 0.8 12/04/2011 Normal [facility] HEMATOLOGY Eosinophils # 0.0 K/CMM 0.0 - 0.5 12/04/2011 Normal [facility] HEMATOLOGY Basophils # 0.0 K/CMM 0.0 - 0.2 12/04/2011 Normal [facility] HEMATOLOGY Lymphocytes # 0.2 K/CMM 1.0 - 5.5 12/04/2011 LOW [facility] HEMATOLOGY Segs 93.1 % 45.0 - 75.0 12/04/2011 [facility] HEMATOLOGY Eosinophils 0.1 % 0.0 - 4.0 12/04/2011 Normal [facility] HEMATOLOGY Lymphocytes 4.0 % 20.0 - 40.0 12/04/2011 LOW [facility] HEMATOLOGY Basophils 0.0 % 0.0 - 1.0 12/04/2011 Normal [facility] HEMATOLOGY Monocytes 2.8 % 2.0 - 12.0 12/04/2011 Normal [facility] HEMATOLOGY Segs-Bands # 5.4 K/CMM 1.5 - 8.1 12/04/2011 Normal [facility] HEMATOLOGY MCH 29.3 pg 27.0 - 31.0 12/04/2011 Normal [facility] HEMATOLOGY MCV 87.8 fL 80.0 - 94.0 12/04/2011 Normal [facility] HEMATOLOGY Hct 34.7 % 42.0 - 54.0 12/04/2011 LOW [facility] HEMATOLOGY Hgb 11.6 g/dL 14.0 - 18.0 12/04/2011 LOW [facility] HEMATOLOGY MCHC 33.4 g/dL 32.0 - 36.0 12/04/2011 Normal [facility] HEMATOLOGY WBC 5.8 K/CMM 3.7 - 10.4 12/04/2011 Normal [facility] HEMATOLOGY RDW 15.0 % 11.5 - 14.5 12/04/2011 [facility] HEMATOLOGY RBC 3.95 M/CMM 4.70 - 6.10 12/04/2011 LOW [facility] HEMATOLOGY Platelet 171 K/CMM 133 - 450 12/04/2011 Normal [facility] HEMATOLOGY MPV 9.0 fL 7.4 - 10.4 12/04/2011 Normal [facility] CHEMISTRY A/G Ratio 0.6 0.7 - 1.6 12/02/2011 LOW [facility] CHEMISTRY Globulin 4.1 g/dL 2.0 - 4.0 12/02/2011 [facility] CHEMISTRY AGAP 11.0 meq/L 10.0 - 20.0 12/02/2011 Normal [facility] CHEMISTRY B/C Ratio 58 6 - 25 12/02/2011 [facility] [facility] CO2 29 meq/L 24 - 32 12/02/2011 Normal [facility] Calcium Lvl 8.1 mg/dL 8.5 - 10.5 12/02/2011 LOW [facility]MI[facility] Chloride Lvl 111 meq/L 95 - 109 12/02/2011 [facility] CHEMI[facility]Y Total Protein 6.4 g/dL 6.4 - 8.4 12/02/2011 Normal [facility] AST 73 U/L 0 - 37 12/02/2011 [facility] CHEMI[facility]Y Bili Total 0.6 mg/dL 0.2 - 1.3 12/02/2011 Normal [facility] Alk Phos 73 U/L 39 - 136 12/02/2011 Normal [facility] CHEMISTRY Potassium Lvl 4.0 meq/L 3.5 - 5.1 12/02/2011 Normal [facility] CHEMISTRY Albumin Lvl 2.3 g/dL 3.5 - 5.0 12/02/2011 LOW [facility] CHEMISTRY ALT 180 U/L 0 - 65 12/02/2011 [facility] CHEMISTRY Sodium Lvl 147 meq/L 135 - 145 12/02/2011 [facility] CHEMISTRY Creatinine Lvl 0.8 mg/dL 0.5 - 1.4 12/02/2011 Normal [facility] CHEMISTRY BUN 46 mg/dL 7 - 22 12/02/2011 [facility] CHEMISTRY Glucose Lvl 165 mg/dL 70 - 99 12/02/2011 [place] 7Interpretive Data: Adult reference range values reflect the clinical guidelinesof the [place] [employer]. [facility] HEMATOLOGY Hgb 11.4 g/dL 14.0 - 18.0 12/02/2011 LOW [facility] HEMATOLOGY RBC 3.98 M/CMM 4.70 - 6.10 12/02/2011 LOW [facility] HEMATOLOGY MCH 28.6 pg 27.0 - 31.0 12/02/2011 Normal [facility] HEMATOLOGY MCV 86.9 fL 80.0 - 94.0 12/02/2011 Normal [facility] HEMATOLOGY Hct 34.6 % 42.0 - 54.0 12/02/2011 LOW [facility] HEMATOLOGY Platelet 239 K/CMM 133 - 450 12/02/2011 Normal [facility] HEMATOLOGY MPV 8.2 fL 7.4 - 10.4 12/02/2011 Normal [facility] HEMATOLOGY WBC 3.8 K/CMM 3.7 - 10.4 12/02/2011 Normal [facility] HEMATOLOGY RDW 14.4 % 11.5 - 14.5 12/02/2011 Normal [facility] HEMATOLOGY MCHC 33.0 g/dL 32.0 - 36.0 12/02/2011 Normal [facility] HEMATOLOGY Lymphocytes # 0.2 K/CMM 1.0 - 5.5 12/02/2011 LOW [facility] HEMATOLOGY Segs-Bands # 3.5 K/CMM 1.5 - 8.1 12/02/2011 Normal [facility] HEMATOLOGY Basophils 0.0 % 0.0 - 1.0 12/02/2011 Normal [facility] HEMATOLOGY Eosinophils 0.0 % 0.0 - 4.0 12/02/2011 Normal [facility] HEMATOLOGY Basophils # 0.0 K/CMM 0.0 - 0.2 12/02/2011 Normal [facility] HEMATOLOGY Eosinophils # 0.0 K/CMM 0.0 - 0.5 12/02/2011 Normal [facility] HEMATOLOGY Monocytes # 0.1 K/CMM 0.0 - 0.8 12/02/2011 Normal [facility] HEMATOLOGY Monocytes 2.0 % 2.0 - 12.0 12/02/2011 Normal [facility] HEMATOLOGY Lymphocytes 5.4 % 20.0 - 40.0 12/02/2011 LOW [facility] HEMATOLOGY Segs 92.6 % 45.0 - 75.0 12/02/2011 HI [facility] HEMATOLOGY PT 15.3 s 12.0 - 14.7 12/01/2011 HI [facility] HEMATOLOGY INR 1.21 0.85 - 1.17 12/01/2011 [place] 10Interpretive Data: RECOMMENDED RANGES FOR PROTIME INR: 2.0-3.0 for most medical and surgical thromboembolic states. 2.5-3.5 for artificial heart valves and recurrent embolism.INR SHOULD BE USED ONLY FOR PATIENTS ON STABLE ANTICOAGULANT THERAPY. [facility] HEMATOLOGY PTT 28.2 s 22.9 - 35.8 12/01/2011 Normal 13Interpretive Data: Heparin Therapeutic Range: 57 - 92 Seconds [facility] CHEMISTRY Bili Direct 0.2 mg/dL 0.0 - 0.3 11/30/2011 Normal [facility] CHEMISTRY Bili Indirect 0.3 mg/dL 0.0 - 1.0 11/30/2011 Normal [facility] HEMATOLOGY PT 14.3 s 12.0 - 14.7 11/30/2011 Normal [facility] INR 1.11 0.85 - 1.17 11/30/2011 Normal 11Interpretive Data: RECOMMENDED RANGES FOR PROTIME INR: 2.0-3.0 for most medical and surgical thromboembolic states. 2.5-3.5 for artificial heart valves and recurrent embolism.INR SHOULD BE USED ONLY FOR PATIENTS ON STABLE ANTICOAGULANT THERAPY. [facility] CHEMISTRY FiO2 Art 35.0 11/29/2011 NA [facility] CHEMISTRY BE Art 6 mMol/L -2-2 - 2 11/29/2011 [facility] CHEMISTRY O2 Sat Art 99.2 % 95.0 - 100.0 11/29/2011 Normal [facility] CHEMISTRY Allens Art Positive (11/29/2011 12:42:00) 11/29/2011 Normal [facility] CHEMISTRY Mode Art Tube Comp 11/29/2011 NA [facility] CHEMISTRY Site Art Right Ra (11/29/2011 12:42:00) 11/29/2011 Normal [facility] pCO2 Art 34 mm[Hg] 35 - 45 11/29/2011 LOW [facility] pO2 Art 129 mm[Hg] 80 - 100 11/29/2011 [facility] CHE[facility] HCO3 Art 28 mMol/L 22 - 26 11/29/2011 [facility] pH Art 7.54 7.35 - 7.45 11/29/2011 [facility] CHE[facility] PEEP Art 5.0 11/29/2011 [facility] CHE[facility] PS Art 12 11/29/2011 [facility] CHE[facility] Vt Art 550 11/29/2011 [facility] CHEMI[facility]Y FiO2 Art 35.0 11/29/2011 [facility] CHEMI[facility]Y Site Art Right Ra (11/29/2011 04:39:00) 11/29/2011 Normal [facility]MI[facility] Allens Art Positive (11/29/2011 04:39:00) 11/29/2011 Normal [facility] Mode Art Simv (11/29/2011 04:39:00) 11/29/2011 Normal [facility] Rate Art 4 11/29/2011 [facility] pO2 Art 107 mm[Hg] 80 - 100 11/29/2011 [facility] CHE[facility] HCO3 Art 30 mMol/L 22 - 26 11/29/2011 [facility] CHE[facility] pCO2 Art 49 mm[Hg] 35 - 45 11/29/2011 [facility] CHEMI[facility]Y O2 Sat Art 98.5 % 95.0 - 100.0 11/29/2011 Normal [facility] BE Art 4 mMol/L -2-2 - 2 11/29/2011 [facility] CHEMI[facility]Y pH Art 7.41 7.35 - 7.45 11/29/2011 Normal [facility] CHEMISTRY Bili Direct 0.2 mg/dL 0.0 - 0.3 11/29/2011 Normal [facility] CHEMISTRY Bili Indirect 0.2 mg/dL 0.0 - 1.0 11/29/2011 Normal [facility] HEMATOLOGY PT 14.0 s 12.0 - 14.7 11/29/2011 Normal [facility] HEMATOLOGY INR 1.08 0.85 - 1.17 11/29/2011 Normal 12Interpretive Data: RECOMMENDED RANGES FOR PROTIME INR: 2.0-3.0 for most medical and surgical thromboembolic states. 2.5-3.5 for artificial heart valves and recurrent embolism.INR SHOULD BE USED ONLY FOR PATIENTS ON STABLE ANTICOAGULANT THERAPY. [facility] IMMUNOLOGY Hep Bs Ag Negative *NA* (11/29/2011 03:00:00) Negative 11/29/2011 [facility] IMMUNOLOGY Hep B Core IgM Negative *NA* (11/29/2011 03:00:00) Negative 11/29/2011 [facility] IMMUNOLOGY Hep A IgM Negative *NA* (11/29/2011 03:00:00) Negative 11/29/2011 [facility] IMMUNOLOGY Hep C Ab Negative *NA* (11/29/2011 03:00:00) Negative 11/29/2011 [facility] FiO2 Art 35.0 11/28/2011 NA [facility] PEEP Art 5.0 11/28/2011 NA [facility] PS Art 12 11/28/2011 NA [facility] Vt Art 550 11/28/2011 NA [facility] BE Art 2 mMol/L -2-2 - 2 11/28/2011 Normal [facility] Rate Art 4 11/28/2011 [facility] CHE[facility] Site Art Right Ra (11/28/2011 05:19:00) 11/28/2011 Normal [facility] CHEMISTRY O2 Sat Art 97.1 % 95.0 - 100.0 11/28/2011 Normal [facility] CHEMI[facility] Allens Art Positive (11/28/2011 05:19:00) 11/28/2011 Normal [facility] CHEMI[facility] HCO3 Art 26 mMol/L 22 - 26 11/28/2011 Normal [facility] Mode Art Simv (11/28/2011 05:19:00) 11/28/2011 Normal [facility] pH Art 7.42 7.35 - 7.45 11/28/2011 Normal [facility]MI[facility] pO2 Art 88 mm[Hg] 80 - 100 11/28/2011 Normal [facility] CHEMI[facility] pCO2 Art 41 mm[Hg] 35 - 45 11/28/2011 Normal [facility] CHEMI[facility] Rate Art 6 11/27/2011 NA [facility] CHEMI[facility] Vt Art 550 11/27/2011 NA [facility] CHEMI[facility] PEEP Art 5.0 11/27/2011 NA [facility] PS Art 12 11/27/2011 [facility] CHE[facility] BNP 80 pg/mL <=100 11/23/2011 Normal 8Interpretive Data: Elevated results are in line with increasing severity of congestive heart failure. Minor elevations between 100 and 300 may be seen with Myocardial Ischemia, Sodium retaining drug s, and compensated/treated heart failure. [facility] CHEMI[facility] Magnesium Lvl 1.9 mg/dL 1.8 - 2.4 11/23/2011 Normal [facility] Microbiology Culture: BAL Quantitative w/Gram Stain 11/20/2011 [facility] Microbiology Culture: Respiratory w/Gram Stain 11/20/2011 [facility] Microbiology Gram Stain 11/20/2011 [facility] BACTERIAL - SEROLOGY MRSA by PCR Negative 1 (11/19/2011 15:40:00) 11/19/2011 Normal 1Interpretive Data: INTERPRETATION: Negative......No MRSA DNA detected by PCR Positive......MRSA DNA detected by PCRASSAY LIMITATIONS:This is a screening test for colonization by MRSA. A positive test result indicates the patient is colonized by MRSA, but does not necessarily mean that an infection is present or that treatment is necessary. Likewise, a negative test does not exclude colonization or infection. Patients should be evaluatedclinically for symptoms and signs of infection before making therapeutic decisions. Routine decolonization is discouraged and should only be considered for select patients after consultation with an infectious diseases specialist. [facility] BEDSIDE GLUCOSE TESTING Gluc POC Lifscn 77 mg/dL 65 - 110 09/25/2011 Normal 1Interpretive Data: Upper Reportable Limit: 200 mg/dL. [facility] Vital Signs Vital Sign Value Date Comments Source Respitory Rate 20 01/08/2018 [facility] Heart Rate 62 01/08/2018 [facility] Systolic (mm Hg) 112 01/08/2018 [facility] Diastolic (mm Hg) 75 01/08/2018 [facility] Temperature Oral (F) 97.7 F 01/08/2018 [facility] Temperature Oral (F) 97.8 F 01/08/2018 [facility] Heart Rate 59 01/08/2018 [facility] Systolic (mm Hg) 129 01/08/2018 [facility] Diastolic (mm Hg) 74 01/08/2018 [facility] Temperature Oral (F) 98.0 F 01/08/2018 [facility] Heart Rate 62 01/08/2018 [facility] Systolic (mm Hg) 134 01/08/2018 [facility] Diastolic (mm Hg) 79 01/08/2018 [facility] Respitory Rate 18 01/08/2018 [facility] Respitory Rate 16 01/07/2018 [facility] BMI Calculated 32.55 01/06/2018 [facility] Weight 94.261 01/06/2018 [facility] Height 170.18 cm 01/06/2018 [facility] BMI Calculated 31.71 01/06/2018 [facility] Height 172.72 cm 01/06/2018 [facility] Weight 94.591 01/06/2018 [facility] Diastolic (mm Hg) 92 02/02/2014 [facility] Systolic (mm Hg) 157 02/02[facility]2014 [facility] Respitory Rate 16 02/02/2014 [facility] Heart Rate 71 02/02/2014 [facility] Diastolic (mm Hg) 82 02/02/[address] [facility] Systolic (mm Hg) 142 02/02/2014 [facility] Respitory Rate 20 02/02/2014 [facility] Peripheral Pulse Rate 68 02/02/[address] [facility] Temperature Oral (F) 36.6 Alice 02/02/[address] [facility] Weight 31.44 01/31/[address] [facility] Systolic (mm Hg) 142 01/05/[address] [facility] Heart Rate 66 01/05/[address] [facility] Respitory Rate 16 01/05/[address] [facility] Diastolic (mm Hg) 81 01/05/2014 [facility] Temperature Oral (F) 36.2 Alice 01/05/[address] [facility] Peripheral Pulse Rate 60 01/05/2014 [facility] Diastolic (mm Hg) 84 01/05/[address] [facility] Systolic (mm Hg) 148 01/05/[address] [facility] Respitory Rate 16 01/05/[address] [facility] Weight 31.44 01/04/[address] [facility] Systolic (mm Hg) 142 02/02/2012 [facility] Respitory Rate 18 02/02/2012 [facility] Diastolic (mm Hg) 84 02/02/2012 [facility] Heart Rate 68 02/02/2012 [facility] Systolic (mm Hg) 140 02/02/2012 [facility] Respitory Rate 18 02/02/2012 [facility] Diastolic (mm Hg) 83 02/02/2012 [facility] Heart Rate 64 02/02/2012 [facility] Diastolic (mm Hg) 81 02/02/2012 [facility] Systolic (mm Hg) 129 02/02/2012 [facility] Heart Rate 70 02/02/2012 [facility] Respitory Rate 18 02/02/2012 [facility] Weight 77.727 02/02/2012 [facility] Height 172.72 cm 02/02/2012 [facility] Respitory Rate 16 12/08/2011 [facility] Systolic (mm Hg) 108 12/08/2011 [facility] Diastolic (mm Hg) 66 12/08/2011 [facility] Temperature Oral (F) 97.5 F 12/08/2011 [facility] Heart Rate 70 12/08/2011 [facility] Respitory Rate 20 12/08/2011 [facility] Systolic (mm Hg) 117 12/08/2011 [facility] Diastolic (mm Hg) 76 12/08/2011 [facility] Heart Rate 72 12/08/2011 [facility] Temperature Oral (F) 96.8 F 12/08/2011 [facility] Temperature Oral (F) 97.0 F 12/08/2011 [facility] Heart Rate 65 12/08/2011 [facility] Respitory Rate 20 12/08/2011 [facility] Systolic (mm Hg) 115 12/08/2011 [facility] Diastolic (mm Hg) 83 12/08/2011 [facility] Weight 73.007 11/20/2011 [facility] Weight 70.057 11/19/2011 [facility] Height 172.72 cm 11/19/2011 [facility] Height 172.72 cm 11/18/2011 [facility] Weight 70.455 11/18/2011 [facility] Diastolic (mm Hg) 76 09/25/2011 [facility] Systolic (mm Hg) 111 09/25/2011 [facility] Heart Rate 66 09/25/2011 [facility] Respitory Rate 18 09/25/2011 [facility] Respitory Rate 18 09/25/2011 [facility] Diastolic (mm Hg) 83 09/25/2011 [facility] Systolic (mm Hg) 118 09/25/2011 [facility] Heart Rate 68 09/25/2011 [facility] Diastolic (mm Hg) 72 09/25/2011 [facility] Systolic (mm Hg) 104 09/25/2011 [facility] Respitory Rate 18 09/25/2011 [facility] Heart Rate 74 09/25/2011 [facility] Height 172.72 cm 09/25/2011 [facility] Weight 77.273 09/25/2011 [facility] En[facility] Location Location Details Encounter Type Encounter Number Reason For Visit Attending Provider ADM Date DC Date Status Source Not Sent [facility] [id number] DYSPHAGIA. LEILA BERTRAM 09/25/2011 09/25/2011 Active [facility] Out[facility] [id number] LEILA BERTRAM 09/29/2011 09/29/2011 Active [facility] Not [facility] Inpatient [id number] UNABLE TO SWALLOW VINICIUS LARRY 11/19/2011 12/08/2011 Active [facility] Not Sent LUNA [id number] LEILA BURDEN 02/02/2012 02/02/2012 Active [facility] Outpatient [id number] Sabas Bryce 01/05/2014 01/05/2014 Active [facility] Outpatient [id number] Sabas Wu 02/02/2014 02/02/2014 Active [facility] Inpatient [id number] Jesse Timmons 01/06/2018 01/08/2018 [facility] Procedures Procedure Code Date Perfomer Comments Source Extracapsular cataract removal with insertion of intraocular lens prosthesis (1 stage procedure), manual or mechanical technique (eg, irrigation and aspiration or phacoemulsification) 40823 02/02/2014 [facility] POSTERIOR CHAMBER INTRAOCULAR LENS 02/02/2014 [facility] Gallbladder excision [id number] [facility] Spinal fusion [id number] [facility] Tonsil operation [id number] [facility] BACK SURGERY X 2 [facility] CHOLECYSTECTOMY [facility]
--- OUTSIDE RECORDS SUMMARY | 2018-08-07 07:08 | XMS REPORT | CCD ---
Author Author Auto Generated Organization [facility] Outpatient Imaging [facility] Address Unknown Phone Unavailable Care Team Providers Care Alarm Signal Operator Name Role Phone Bharat Guzman CP Allergies, Adverse Reactions, Alerts Substance Reaction Status NKDA Active
--- OUTSIDE RECORDS SUMMARY | 2018-08-07 07:08 | XMS REPORT | CCD ---
Author Author Auto Generated Organization [facility] Outpatient Imaging [facility] Address Unknown Phone Unavailable Care Team Providers Care Battery Tester Field Name Role Phone Raoul Stanley CP Allergies, Adverse Reactions, Alerts Substance Reaction Status NKDA Active
--- OUTSIDE RECORDS SUMMARY | 2018-08-07 07:08 | XMS REPORT | CCD ---
Author Author Auto Generated Organization [facility] Address Unknown Phone Unavailable Care Team Providers Care Air Control/Anti Air Warfare Officer Name Role Phone Reyes Mercado RP Allergies, Adverse Reactions, Alerts Substance Reaction Status NKDA Active Medications Medication Instructions Start Date End Date Status lidocaine 0.1 mL, Route: INJ, Drug form: INJ, 09/25/2011 09/25/2011 Discontinued ONCALL, Start date: 09/25/11 9:00:00, Duration: 6 hr, Stop date: 09/25/11 14:59:00 Sodium Chloride 1,000 mL, Rate: DIRECTED, Rate: 09/25/2011 09/25/2011 Discontinued 0.45% IV 1,000 mL 0 ml/hr, Infuse over: 0, Route: IV, Total Volume: 1,000, Start date: 09/25/11 8:35:00, Duration: 6 hr, Stop date: 09/25/11 14:34:00 Vital Signs Most recent to oldest [Reference Range]: 1 2 3 Height 172.72 cm (09/25/2011 08:26:00) Systolic Blood Pressure [90-140 mmHg] 111 mmHg (09/25/2011 10:30:00) 118 mmHg (09/25/2011 10:15:00) 104 mmHg (09/25/2011 10:00:00) Diastolic Blood Pressure [60-90 mmHg] 76 mmHg (09/25/2011 10:30:00) 83 mmHg (09/25/2011 10:15:00) 72 mmHg (09/25/2011 10:00:00) Respiratory Rate [14-20 BRMIN] 18 BRMIN (09/25/2011 10:30:00) 18 BRMIN (09/25/2011 10:15:00) 18 BRMIN (09/25/2011 10:00:00) Peripheral Pulse Rate [60-100 bpm] 66 bpm (09/25/2011 10:30:00) 68 bpm (09/25/2011 10:15:00) 74 bpm (09/25/2011 10:00:00) Weight 77.273 kg (09/25/2011 08:26:00) Results BEDSIDE GLUCOSE TESTING Most recent to oldest [Reference Range]: 1 Gluc POC Lifscn [65-110 mg/dL] 77 mg/dL 1 (09/25/2011 08:42:00) 1Interpretive Data: Upper Reportable Limit: 200 mg/dL.
--- OUTSIDE RECORDS SUMMARY | 2018-08-07 07:08 | XMS REPORT | CCD ---
Author Author Auto Generated Organization [facility] Address Unknown Phone Unavailable Care Team Providers Care Drive In Teller Name Role Phone Reyes Mercado RP Allergies, Adverse Reactions, Alerts Substance Reaction Status NKDA Active Problem List Condition Effective Dates Status Acute respiratory failure 11/19/2011 Active Diabetes mellitus Active Dysphagia Active GERD - Gastro-esophageal reflux disease Active Hyperlipidemia Active Myasthenia gravis Active Swallowing Active Medications Medication Instructions Start Date End Date Status Lactated Ringers 1,000 mL, Rate: 75 ml/hr, Infuse 02/02/2012 02/02/2012 Discontinued Injection IV 1,000 over: 13.3 hr, Route: IV, Dosing mL Weight 77.727 kg, Total Volume: 1,000, Start date: 02/02/12 11:00:00, Duration: 30 day, Stop date: 03/03/12 10:59:00 pneumococcal 0.5 ml, Route: IM, Drug Form: INJ, 11/19/2011 11/19/2011 Completed 23-valent vaccine Start date: 11/19/11 9:00:00, Stop date: 11/19/11 9:00:00 influenza virus 0.5 mL, Route: IM, Drug Form: INJ, 11/19/2011 11/19/2011 Completed vaccine, inactivated Start date: 11/19/11 9:00:00, Stop date: 11/19/11 9:00:00 Immunizations Vaccine Date Status influenza virus vaccine, inactivated 11/19/2011 Not Done pneumococcal 23-valent vaccine 11/19/2011 Not Done Vital Signs Most recent to oldest [Reference Range]: 1 2 3 Height 172.72 cm (02/02/2012 10:51:00) Systolic Blood Pressure [90-140 mmHg] 142 mmHg *HI* (02/02/2012 13:00:00) 140 mmHg (02/02/2012 12:45:00) 129 mmHg (02/02/2012 12:30:00) Diastolic Blood Pressure [60-90 mmHg] 84 mmHg (02/02/2012 13:00:00) 83 mmHg (02/02/2012 12:45:00) 81 mmHg (02/02/2012 12:30:00) Respiratory Rate [14-20 BRMIN] 18 BRMIN (02/02/2012 13:00:00) 18 BRMIN (02/02/2012 12:45:00) 18 BRMIN (02/02/2012 12:30:00) Peripheral Pulse Rate [60-100 bpm] 68 bpm (02/02/2012 13:00:00) 64 bpm (02/02/2012 12:45:00) 70 bpm (02/02/2012 12:30:00) Weight 77.727 kg (02/02/2012 10:51:00)
--- OUTSIDE RECORDS SUMMARY | 2018-08-07 07:08 | XMS REPORT | Summary of Care ---
Author Author [facility] Organization [facility] Address Unknown Phone Unavailable Encounter REGINE Salinas(CLARISSA) [id number] Date(s): 01/06/18 - 01/08/18 [facility] [address] [place] [address]- Discharge Disposition: Home or Self Care Attending Physician: Jesse Timmons MD Admitting Physician: Jesse Timmons MD Vital Signs 1 2 3 Most recent to oldest [Reference Range]: 170.18 cm (01/06/18 6:35 PM) 172.72 cm (01/06/18 2:34 PM) Height 97.7 DegF (01/08/18 1:40 PM) 97.8 DegF (01/08/18 11:07 AM) 98.0 DegF (01/08/18 7:00 AM) Temperature Oral [96.4-99.1 DegF] 112/75 mmHg (01/08/18 1:40 PM) 129/74 mmHg (01/08/18 11:07 AM) 134/79 mmHg (01/08/18 7:00 AM) Blood Pressure [90-140/60-90 mmHg] 20 BRMIN (01/08/18 1:40 PM) 18 BRMIN (01/07/18 7:00 PM) 16 BRMIN (01/07/18 12:03 PM) Respiratory Rate [14-20 BRMIN] 62 bpm (01/08/18 1:40 PM) 59 bpm *LOW* (01/08/18 11:07 AM) 62 bpm (01/08/18 7:00 AM) Peripheral Pulse Rate [60-100 bpm] 94.261 kg (01/06/18 6:35 PM) 94.591 kg (01/06/18 2:34 PM) Weight 32.55 m2 (01/06/18 6:35 PM) 31.71 m2 (01/06/18 2:34 PM) Body Mass Index Problem List Condition Effective Dates Status Health Status Informant Acute respiratory 11/19/11 Active failure(Confirmed) Diabetes Active mellitus(Confirmed) Dysphagia(Confirmed) Active hyperlipidemia(Confi Active rmed) Hyperlipidemia(Confi Active rmed) Myasthenia Active gravis(Confirmed) Allergies, Adverse Reactions, Alerts Substance Reaction Severity Status NKDA Active Medications acetaminophen 325 mg oral tablet 325 mg, 1 tab, Route: PO, Drug form: TAB, Q6H, Dosing Weight 94.261, kg, PRN Bryan n Score 1-3, Start date: 01/06/18 22:56:00 CDT, Duration: 30 day, Stop date: 22:55:00 CDT Notes: Do not exceed 4 gm/day. (Same as: Tylenol) Start Date: 01/06/18 Stop Date: 01/08/18 Status: Discontinued amLODIPine 5 mg, 1 tab, Route: PO, Drug form: TAB, Daily, Dosing Weight 94.261, kg, Start d ate: 01/08/18 12:00:00 CDT, Duration: 30 day, Stop date: 02/07/18 9:00:00 CDT Notes: (Same as: Norvasc) Start Date: 01/08/18 Stop Date: 01/08/18 Status: Discontinued amLODIPine 5 mg, PO, Daily, 0 Refill(s) Start Date: 01/07/18 Status: Ordered aspirin 324 mg, 4 tab, Route: CHEW, Drug form: CHEWTAB, ONCE, Dosing Weight 94.591, kg, Priority: STAT, Start date: 01/06/18 15:55:00 CDT, Stop date: 01/06/18 15:55:00 CDT Notes: Take with food. Start Date: 01/06/18 Stop Date: 01/06/18 Status: Completed aspirin 325 mg, 1 tab, Route: PO, Drug form: ECTAB, Daily, Dosing Weight 94.261, kg, Sta rt date: 01/08/18 12:00:00 CDT, Duration: 30 day, Stop date: 02/07/18 9:00:00 CD T Notes: (Do Not Crush) Do not crush or chew. Start Date: 01/08/18 Stop Date: 01/08/18 Status: Discontinued aspirin 325 mg tablet, enteric coated 325 mg, PO, Daily, # 100 tab, 0 Refill(s), Pharmacy: [facility] [id number] Start Date: 01/08/18 Status: Ordered aspirin 81 mg tablet, enteric coated 325 mg, 1 tab, Route: PO, Drug form: ECTAB, Q24H, Dosing Weight 94.591, kg, Star t date: 01/07/18 17:00:00 CDT, Duration: 30 day, Stop date: 02/05/18 17:00:00 CD T Notes: (Do Not Crush) Do not crush or chew. Start Date: 01/07/18 Stop Date: 01/08/18 Status: Discontinued aspirin 81 mg tablet, enteric coated 81 mg, 1 tab, Route: PO, Drug form: ECTAB, Q24H, Dosing Weight 94.591, kg, Start date: 01/06/18 16:56:00 CDT, Duration: 30 day, Stop date: 02/04/18 16:56:00 CDT Notes: Do not crush or chew.(Same As: Ecotrin) Start Date: 01/06/18 Stop Date: 01/07/18 Status: Discontinued atorvastatin 40 mg, 1 tab, Route: PO, Drug form: TAB, Bedtime, Dosing Weight 94.261, kg, Star t date: 01/08/18 21:00:00 CDT, Duration: 30 day, Stop date: 02/06/18 21:00:00 CD T Notes: (Same as: Lipitor) Start Date: 01/08/18 Stop Date: 01/08/18 Status: Canceled atorvastatin 80 mg, 2 tab, Route: PO, Drug form: TAB, Bedtime, Dosing Weight 94.591, kg, Star t date: 01/06/18 21:00:00 CDT, Duration: 30 day, Stop date: 02/04/18 21:00:00 CD T Notes: (Same as: Lipitor) Start Date: 01/06/18 Stop Date: 01/08/18 Status: Discontinued atorvastatin 40 mg oral tablet 40 mg=1 tab, PO, Bedtime, # 30 tab, 0 Refill(s) Start Date: 01/07/18 Status: Ordered Dextrose 50% Syringe 12.5 gm, 25 mL, Route: IVP, Drug Form: INJ, Dosing Weight 94.261, kg, PRN, PRN B lood Glucose Results, Start date: 01/08/18 9:52:00 CDT, Duration: 30 day, Stop d ate: 02/07/18 9:51:00 CDT Start Date: 01/08/18 Stop Date: 01/08/18 Status: Discontinued Dextrose 50% Syringe 25 gm, 50 mL, Route: IVP, Drug Form: INJ, Dosing Weight 94.261, kg, PRN, PRN Blo od Glucose Results, Start date: 01/08/18 9:52:00 CDT, Duration: 30 day, Stop pilo e: 02/07/18 9:51:00 CDT Start Date: 01/08/18 Stop Date: 01/08/18 Status: Discontinued enoxaparin 40 mg, 0.4 mL, Route: SUB-Q, Drug form: INJ, [id number], Dosing Weight 94.591, kg, Start date: 01/06/18 17:00:00 CDT, Duration: 30 day, Stop date: 02/04/18 17:00: 00 CDT Notes: (Same as: Lovenox) Start Date: 01/06/18 Stop Date: 01/08/18 Status: Discontinued famotidine 20 mg, 1 tab, Route: PO, Drug form: TAB, Q12H, Dosing Weight 94.591, kg, Start d ate: 01/06/18 21:00:00 CDT, Duration: 30 day, Stop date: 02/05/18 9:00:00 CDT Notes: (Same as: Pepcid) Start Date: 01/06/18 Stop Date: 01/08/18 Status: Discontinued glimepiride 4 mg, Route: PO, Drug form: TAB, BID, Dosing Weight 94.261, kg, Start date: 12/19 10/07 17:00:00 CDT, Duration: 30 day, Stop date: 02/07/18 9:00:00 CDT Start Date: 01/08/18 Stop Date: 01/08/18 Status: Deleted glimepiride 4 mg oral tablet 4 mg=1 tab, PO, BID, 0 Refill(s) Start Date: 01/07/18 Status: Ordered glucagon 1 mg, Route: IM, Drug form: PDR/INJ, PRN, Dosing Weight 94.261, kg, PRN Blood Gl ucose Results, Start date: 01/08/18 9:52:00 CDT, Duration: 30 day, Stop date: 9:51:00 CDT Start Date: 01/08/18 Stop Date: 01/08/18 Status: Discontinued Glucotrol 10 mg, 1 tab, Route: PO, Drug form: TAB, BID, Start date: 01/08/18 17:00:00 CDT, Duration: 30 day, Stop date: 02/07/18 9:00:00 CDT Notes: (Same as: Glucotrol) 30 min before meals. Start Date: 01/08/18 Stop Date: 01/08/18 Status: Canceled Humalog 15 unit, SUB-Q, TID, 0 Refill(s) Start Date: 01/07/18 Status: Ordered insulin glargine 55 unit, 0.55 mL, Route: SUB-Q, Drug form: SOLN, Bedtime, Start date: 01/08/18 2 1:00:00 CDT, Duration: 30 day, Stop date: 02/06/18 21:00:00 CDT Notes: (Same as: Lantus)Do not hold insulin without contacting prescriberWASTE: F/P - Black; E - Municipal Trash Bin "single patient use only" Start Date: 01/08/18 Stop Date: 01/08/18 Status: Canceled insulin lispro 8 unit, 0.08 mL, Route: SUB-Q, Drug form: SOLN, TID-Before Meals, Dosing Weight 94.261, kg, PRN Blood Glucose Results, Start date: 01/08/18 9:52:00 CDT, Duratio n: 30 day, Stop date: 02/07/18 9:51:00 CDT Notes: (Same as: Humalog ) Roll in palms of hands gently; Do not shake `vigorou sly. "Single Patient Use Only " WASTE: F/P - Black; E - Municipal Trash [address] St able for 28 days at room temperature.Expires in days from Da te Start Date: 01/08/18 Stop Date: 01/08/18 Status: Discontinued insulin lispro 10 unit, 0.1 mL, Route: SUB-Q, Drug form: SOLN, TID-Before Meals, Dosing Weight 94.261, kg, PRN Blood Glucose Results, Start date: 01/08/18 9:52:00 CDT, Duratio n: 30 day, Stop date: 02/07/18 9:51:00 CDT Notes: (Same as: Humalog ) Roll in palms of hands gently; Do not shake `vigorou sly. "Single Patient Use Only " WASTE: F/P - Black; E - [facility] Tr[address] St able for 28 days at room temperature.Expires in days from Da te Start Date: 01/08/18 Stop Date: 01/08/18 Status: Discontinued insulin lispro 2 unit, 0.02 mL, Route: SUB-Q, Drug form: SOLN, TID-Before Meals, Dosing Weight 94.261, kg, PRN Blood Glucose Results, Start date: 01/08/18 9:52:00 CDT, Duratio n: 30 day, Stop date: 02/07/18 9:51:00 CDT Notes: (Same as: Humalog ) Roll in palms of hands gently; Do not shake `vigorou sly. "Single Patient Use Only " WASTE: F/P - Black; E - [facility] [address] St able for 28 days at room temperature.Expires in days from Da te Start Date: 01/08/18 Stop Date: 01/08/18 Status: Discontinued insulin lispro 4 unit, 0.04 mL, Route: SUB-Q, Drug form: SOLN, TID-Before Meals, Dosing Weight 94.261, kg, PRN Blood Glucose Results, Start date: 01/08/18 9:52:00 CDT, Duratio n: 30 day, Stop date: 02/07/18 9:51:00 CDT Notes: (Same as: Humalog ) Roll in palms of hands gently; Do not shake `vigorou sly. "Single Patient Use Only " WASTE: F/P - Black; E - [facility] [address] St able for 28 days at room temperature.Expires in days from Da te Start Date: 01/08/18 Stop Date: 01/08/18 Status: Discontinued insulin lispro 6 unit, 0.06 mL, Route: SUB-Q, Drug form: SOLN, TID-Before Meals, Dosing Weight 94.261, kg, PRN Blood Glucose Results, Start date: 01/08/18 9:52:00 CDT, Duratio n: 30 day, Stop date: 02/07/18 9:51:00 CDT Notes: (Same as: Humalog ) Roll in palms of hands gently; Do not shake `vigorou sly. "Single Patient Use Only " WASTE: F/P - Black; E - [facility] [address] St able for 28 days at room temperature.Expires in days from Da te Start Date: 01/08/18 Stop Date: 01/08/18 Status: Discontinued Levemir 55 units, SUB-Q, Bedtime, 0 Refill(s) Start Date: 01/07/18 Status: Ordered Levemir Route: SUB-Q, Bedtime, Dosing Weight 94.261, kg, Start date: 01/08/18 21:00:00 C DT, Duration: 30 day, Stop date: 02/06/18 21:00:00 CDT Start Date: 01/08/18 Stop Date: 01/08/18 Status: Deleted mycophenolate mofetil 500 mg, 2 cap, Route: PO, Drug form: CAP, Q12H, Dosing Weight 94.261, kg, Start date: 01/08/18 12:00:00 CDT, Duration: 30 day, Stop date: 02/07/18 9:00:00 CDT Notes: SEPARATE ANTACIDS from [employer] by 2 hrs.(Same As: CellCept) Start Date: 01/08/18 Stop Date: 01/08/18 Status: Discontinued mycophenolate mofetil 500 mg oral tablet 500 mg=1 tab, PO, BID, 0 Refill(s) Start Date: 01/07/18 Status: Ordered ondansetron 4 mg, 2 mL, Route: IVP, Drug form: INJ, Q8H, Dosing Weight 94.591, kg, PRN Nause a & Vomiting, Start date: 01/06/18 16:46:00 CDT, Duration: 30 day, Stop date: 02/05/18 16:45:00 CDT Notes: (Same as: Arminda) MEDICATION WASTE Product Size: 4 mgProduct Was casper: ___ mg Start Date: 01/06/18 Stop Date: 01/08/18 Status: Discontinued Saline Flush 0.9% 10 mL, Route: IVP, Drug Form: INJ, Dosing Weight 77.727, kg, PRN, PRN Line Flush , Start date: 01/06/18 14:35:00 CDT, Duration: 30 day, Stop date: 02/05/18 14:34 :00 CDT Notes: (Same as: BD Posiflush) Start Date: 01/06/18 Stop Date: 01/08/18 Status: Discontinued Saline Flush 0.9% 10 ml, Route: IVP, Drug Form: INJ, Dosing Weight 94.591, kg, PRN, PRN Line Flush , Start date: 01/06/18 16:46:00 CDT, Duration: 30 day, Stop date: 02/05/18 16:45 :00 CDT Notes: (Same as: BD Posiflush) Start Date: 01/06/18 Stop Date: 01/08/18 Status: Discontinued Saline Flush 0.9% 10 ml, Route: IVP, Drug Form: INJ, Dosing Weight 94.591, kg, Q12H, Start date: 0 01/06/18 21:00:00 CDT, Duration: 30 day, Stop date: 02/05/18 9:00:00 CDT Notes: (Same as: BD Posiflush) Start Date: 01/06/18 Stop Date: 01/08/18 Status: Discontinued Vitamin D3 1000 intl units oral capsule 1,000 IntlUnit=1 cap, PO, Daily, # 100 cap, 0 Refill(s) Start Date: 01/07/18 Status: Ordered Vitamin D3 1000 intl units oral tablet 1,000 IntlUnit, 1 tab, Route: PO, Drug form: TAB, Daily, Dosing Weight 94.261, k g, Start date: 01/08/18 12:00:00 CDT, Duration: 30 day, Stop date: 02/07/18 9:00 :00 CDT Notes: Same as : Vitamin D3 Start Date: 01/08/18 Stop Date: 01/08/18 Status: Discontinued Results ELECTROLYTES Most recent to 1 oldest [Reference Range]: Sodium Lvl [135-145 139 mEq/L mEq/L] (01/06/18 3:14 PM) Potassium Lvl 4.6 mEq/L [3.5-5.1 mEq/L] (01/06/18 3:14 PM) Chloride Lvl [95-109 106 mEq/L mEq/L] (01/06/18 3:14 PM) CO2 [24-32 mEq/L] 28 mEq/L (01/06/18 3:14 PM) AGAP [10.0-20.0 9.6 mEq/L mEq/L] *LOW* (01/06/18 3:14 PM) CHEM PANEL Most recent to 1 oldest [Reference Range]: Creatinine Lvl 1.88 mg/dL [0.50-1.40 mg/dL] *HI* (01/06/18 3:14 PM) eGFR 36 mL/min/1.73m2 1 *NA* (01/06/18 3:14 PM) BUN [7-22 mg/dL] 23 mg/dL *HI* (01/06/18 3:14 PM) Glucose Lvl [70-99 223 mg/dL mg/dL] *HI* (01/06/18 3:14 PM) Calcium Lvl 8.9 mg/dL [8.5-10.5 mg/dL] (01/06/18 3:14 PM) 1Result Comment: The eGFR is calculated using the [...] from the National Kidney Disease Education Program ( NKDEP) which additionally recommends that when the eGFR is used in patients with extremes of body mass index for purposes of drug dosing, the eGFR should be mul tiplied by the estimated BMI. CARDIAC ENZYMES Most recent to 1 oldest [Reference Range]: Total CK [12-191 245 unit/L unit/L] *HI* (01/06/18 3:14 PM) Troponin-I <0.02 ng/mL [0.00-0.40 ng/mL] (01/06/18 3:14 PM) LIPIDS Most recent to 1 oldest [Reference Range]: CHD Risk [4.00-7.30] 2.72 *LOW* (01/06/18 3:14 PM) Chol [<=199 mg/dL] 128 mg/dL (01/06/18 3:14 PM) Trig [<=149 mg/dL] 235 mg/dL *HI* (01/06/18 3:14 PM) HDL [>=61 mg/dL] 47 mg/dL *LOW* (01/06/18 3:14 PM) LDL (Calculated) 34 mg/dL [<=99 mg/dL] (01/06/18 3:14 PM) VLDL 47 *NA* (01/06/18 3:14 PM) SPECIAL CHEMISTRY Most recent to 1 oldest [Reference Range]: Hgb A1C [<=5.6 %] 6.9 % *HI* (01/06/18 3:14 PM) HEMATOLOGY Most recent to 1 oldest [Reference Range]: WBC [3.7-10.4 K/CMM] 7.7 K/CMM (01/06/18 3:14 PM) RBC [4.70-6.10 5.70 M/CMM M/CMM] (01/06/18 3:14 PM) Hgb [14.0-18.0 g/dL] 16.0 g/dL (01/06/18 3:14 PM) Hct [42.0-54.0 %] 48.3 % (01/06/18 3:14 PM) MCV [80.0-94.0 fL] 84.7 fL (01/06/18 3:14 PM) MCH [27.0-31.0 pg] 28.1 pg (01/06/18 3:14 PM) MCHC [32.0-36.0 33.1 g/dL g/dL] (01/06/18 3:14 PM) RDW [11.5-14.5 %] 14.3 % (01/06/18 3:14 PM) MPV [7.4-10.4 fL] 9.1 fL (01/06/18 3:14 PM) Platelet [133-450 285 K/CMM K/CMM] (01/06/18 3:14 PM) Segs [45.0-75.0 %] 78.4 % *HI* (01/06/18 3:14 PM) Lymphocytes 13.3 % [20.0-40.0 %] *LOW* (01/06/18 3:14 PM) Monocytes [2.0-12.0 7.3 % %] (01/06/18 3:14 PM) Eosinophils [0.0-4.0 0.4 % %] (01/06/18 3:14 PM) Basophils [0.0-1.0 0.6 % %] (01/06/18 3:14 PM) Segs-Bands # 6.1 K/CMM [1.5-8.1 K/CMM] (01/06/18 3:14 PM) Lymphocytes # 1.0 K/CMM [1.0-5.5 K/CMM] (01/06/18 3:14 PM) Monocytes # [0.0-0.8 0.6 K/CMM K/CMM] (01/06/18 3:14 PM) PT [12.0-14.7 13.6 seconds seconds] (01/06/18 3:14 PM) INR [0.85-1.17] 1.04 (01/06/18 3:14 PM) PTT [22.9-35.8 27.5 seconds seconds] (01/06/18 3:14 PM) Immunizations No data available for this section Procedures Procedure Date Related Diagnosis Body Site Status Gallbladder excision Completed Spinal fusion Completed Tonsil operation Completed Social History Social History Type Response Smoking Status Never smoker; Ready to change: No; Concerns about tobacco use in household: No; Exposure to Tobacco Smoke None; Cigarette Smoking Last 365 Days No; Reg Smoking Cessation Counseling No entered on: 01/06/18 Assessment and Plan Extracted from: Title: Progress Note * Author: Igor Guzman MD Date: 01/08/18 Impression and Plan IMPRESSION: 1. 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 2. Myasthenia gravis, currently stable without exacerbation. 3. Chronic kidney disease. 4. Hyperlipidemia. RECOMMENDATIONS: 1. continue aspirin 325 mg daily. 2. Continue with statin. 3. Continue with Mestinon 60 mg b.i.d. 4. if cleared by PT/OT/WRIST LINER, then he is ok to discharge from neuro standpoint Extracted from: Title: History and Physical Author: Jesse Timmons MD Date: 01/06/18 1. Acute CVA 2. Diabetes mellitus type 2 3. Hyperlipidemia 4. History of myasthenia gravis PLAN: Patient admitted with sudden onset visual losson the left occipitalvisual field,persisted to have the symptoms. CT scan of the head shows the presence of an acute versus subacute stroke. Patient will need CVA workup. Will request MRI/MRA of the head, carotid Dopplers in aalsowill be observed in telemetry monitoring. PT/OT/speech therapy will evaluate him as inpatient. In the meantime, will restart his usual home medicationsfurther plans will depend on results of tests and evaluations. Dr. [facility] Addendum by Patient's code status at the moment is FULL. Jesse Burton MD on 01/06/2018 18:38 CDT
--- OUTSIDE RECORDS SUMMARY | 2018-08-07 07:08 | XMS REPORT | CCD ---
Author Author Auto Generated Organization [facility] Address Unknown Phone Unavailable Care Team Providers Care Home Service Director Name Role Phone Bryce, Sabas Jack CP [phone] Allergies, Adverse Reactions, Alerts Substance Reaction Status No Known Medication Allergies Active Problem List Condition Effective Dates Status DIABETIC Active HIGH CHOLESTEROL Active MYOSTHENIA GRAVIS Active Medications Medication Instructions Start Date End Date Status mydriatic #4 ophth 1 drops, Soln, Eye-Operative, 02/02/2014 02/02/2014 Discontinued combo q5min, order duration: 3 doses, first dose 02/02/14 6:20:00 CDT, stop date 02/02/14 6:34:00 CDTPhenylephrine 2.5%: 0.1mL T ropicamide 1%: 0.1mL G atifloxacin 0.3%: 0.1mL T otal Volume: 0.3 mL tetracaine 0.5% 1 drops, Soln, Eye-Operative, Once, 02/02/2014 02/02/2014 Completed ophthalmic solution first dose 02/02/14 7:00:00 CDT, stop date 02/02/14 7:00:00 CDTCompounded from [facility] CAO Ophth Combo 1 drops, Soln, Eye-Operative, 02/02/2014 02/02/2014 Discontinued q5min, order duration: 3 doses, first dose 02/02/14 7:35:00 CDT, stop date 02/02/14 7:49:00 CDTVigamox 0.5%: 0.0375 mL A lphagan 0.1%: 0.0375 mL N evanac 0.1%: 0.0375 mL O mnipred 1%: 0.0375 mL T otal Volume: 0.15 mL * Post Op Compound from [facility]* sodium polystyrene 15 gm, Oral, Daily, 0 Refill(s) 01/31/2014 02/14/2014 Ordered sulfonate fenofibrate 145 mg 145 mg=1 tabs, Oral, Daily, # 30 01/04/2014 01/18/2014 Ordered oral tablet tabs, 0 Refill(s) metFORMIN 500 mg mg tabs, Oral, BID, 0 Refill(s) 01/04/2014 01/18/2014 Ordered oral tablet glyBURIDE Oral, Daily, 0 Refill(s) 01/04/2014 01/18/2014 Ordered mycophenolate mg tabs, Oral, BID, 0 Refill(s) 01/04/2014 01/18/2014 Ordered mofetil 500 mg oral tablet lovastatin 40 mg 40 mg=1 tabs, Oral, Daily, # 30 01/04/2014 01/18/2014 Ordered oral tablet tabs, 0 Refill(s) fentaNYL 50 mcg=1 mL, Injection, IV Push, 02/02/2014 02/02/2014 Discontinued q5min PRN for Pain Mild (1-3), order duration: 2 doses, first dose 02/02/14 7:30:00 CDT, stop date Limited # of times Demerol HCl 12.5 mg=0.5 mL, Injection, IV Push, 02/02/2014 02/02/2014 Discontinued q5min PRN for shivers, order duration: 4 doses, first dose 02/02/14 7:30:00 CDT, stop date Limited # of times morphine 2 mg, IV Push, q5min PRN for pain 02/02/2014 02/02/2014 Discontinued severe (7-10), order duration: 5 doses, first dose 02/02/14 7:30:00 CDT, stop date Limited # of times ondansetron 4 mg=2 mL, Injection, IV Push, 02/02/2014 02/02/2014 Discontinued q30min PRN for nausea/vomiting, order duration: 2 doses, first dose 02/02/14 7:30:00 CDT, stop date Limited # of times lidocaine 1% 5 mg=0.5 mL, Injection, 02/02/2014 02/02/2014 Ordered injectable solution Subcutaneous, Once, first dose 02/02/14 7:00:00 CDT, stop date 02/02/14 7:00:00 CDT midazolam 1 mg=1 mL, Injection, IV, Once, 02/02/2014 02/02/2014 Completed first dose 02/02/14 7:08:00 CDT, stop date 02/02/14 7:08:00 CDT fentaNYL 50 mcg=1 mL, Injection, IV, Once, 02/02/2014 02/02/2014 Completed first dose 02/02/14 7:08:00 CDT, stop date 02/02/14 7:08:00 CDT midazolam 1 mg=1 mL, Injection, IV, Once, 02/02/2014 02/02/2014 Completed first dose 02/02/14 7:16:00 CDT, stop date 02/02/14 7:16:00 CDT Misc Medication 400 mL, Soln-IV, IV, Once, first 02/02/2014 02/02/2014 Completed dose 02/02/14 7:28:00 CDT, stop date 02/02/14 7:28:00 CDT ondansetron 4 mg=2 mL, Injection, IV, Once, 02/02/2014 02/02/2014 Completed first dose 02/02/14 7:07:00 CDT, stop date 02/02/14 7:07:00 CDT fentaNYL 50 mcg=1 mL, Injection, IV, Once, 02/02/2014 02/02/2014 Completed first dose 02/02/14 7:20:00 CDT, stop date 02/02/14 7:20:00 CDT LR 500 mL 500 mL, IV, 100 mL/hr, start date 02/02/2014 02/02/2014 Discontinued 02/02/14 6:19:00 CDT, Adult Eye Procedures or Pain lidocaine 1% 5 mg=0.5 mL, Injection, 02/02/2014 02/02/2014 Ordered injectable solution Subcutaneous, Once, first dose 02/02/14 7:00:00 CDT, stop date 02/02/14 7:00:00 CDT Vital Signs Most recent to oldest [Reference Range]: 1 2 Temperature Tympanic [36.6-38.1 DegC] 36.6 DegC (02/02/2014 06:12:00) Peripheral Pulse Rate [55-105 bpm] 68 bpm (02/02/2014 06:12:00) Heart Rate Monitored [60-100 bpm] 71 bpm (02/02/2014 07:30:00) Respiratory Rate [12-20] 16 (02/02/2014 07:30:00) 20 (02/02/2014 06:12:00) SpO2 [90-100 %] 94 % (02/02/2014 07:30:00) 96 % (02/02/2014 06:12:00) Systolic Blood Pressure [110-120 mmHg] 157 mmHg *HI* (02/02/2014 07:30:00) 142 mmHg *HI* (02/02/2014 06:12:00) Diastolic Blood Pressure [65-85 mmHg] 92 mmHg *HI* (02/02/2014 07:30:00) 82 mmHg (02/02/2014 06:12:00) Mean Arterial Pressure, Cuff 113.7 mmHg (02/02/2014 07:30:00) Height/Length Estimated 172 cm (01/31/2014 11:50:00) Weight Estimated 93 kg (01/31/2014 11:50:00) Body Mass Index Estimated 31.44 kg/m2 (01/31/2014 11:50:00) Procedures Procedures Date Related Diagnosis Extracapsular cataract removal with insertion of intraocular 02/02/2014 00:00:00 lens prosthesis (1 stage procedure), manual or mechanical technique (eg, irrigation and aspiration or phacoemulsification) POSTERIOR CHAMBER INTRAOCULAR LENS 02/02/2014 00:00:00
--- OUTSIDE RECORDS SUMMARY | 2018-08-07 07:08 | XMS REPORT | CCD ---
Author Author Auto Generated Organization [facility] Address Unknown Phone Unavailable Care Team Providers Care Community Liaison Name Role Phone Sabas Wu CP [phone] Allergies, Adverse Reactions, Alerts Substance Reaction Status No Known Medication Allergies Active Problem List Condition Effective Dates Status DIABETIC Active HIGH CHOLESTEROL Active MYOSTHENIA GRAVIS Active Medications Medication Instructions Start Date End Date Status LR 500 mL 500 mL, IV, 100 mL/hr, start date 01/05/2014 01/05/2014 Discontinued 01/05/14 7:41:00 CDT, Adult Eye Procedures or Pain fenofibrate 145 mg 145 mg=1 tabs, Oral, [...] 01/18/2014 Ordered oral tablet tabs, 0 Refill(s) Misc Medication 250 mL, Soln-IV, IV, Once, first 01/05/2014 01/05/2014 Completed dose 01/05/14 8:52:00 CDT, stop date 01/05/14 8:52:00 CDT midazolam 2 mg=2 mL, Injection, IV, Once, 01/05/2014 01/05/2014 Completed first dose 01/05/14 8:23:00 CDT, stop date 01/05/14 8:23:00 CDT midazolam 1 mg=1 mL, Injection, IV, Once, 01/05/2014 01/05/2014 Completed first dose 01/05/14 8:16:00 CDT, stop date 01/05/14 8:16:00 CDT fentaNYL 50 mcg=1 mL, Injection, IV, Once, 01/05/2014 01/05/2014 Completed first dose 01/05/14 8:16:00 CDT, stop date 01/05/14 8:16:00 CDT midazolam 1 mg=1 mL, Injection, IV, Once, 01/05/2014 01/05/2014 Completed first dose 01/05/14 8:16:00 CDT, stop date 01/05/14 8:16:00 CDT fentaNYL 50 mcg=1 mL, Injection, IV, Once, 01/05/2014 01/05/2014 Completed first dose 01/05/14 8:16:00 CDT, stop date 01/05/14 8:16:00 CDT mydriatic #4 ophth 1 drops, Soln, Eye-Operative, 01/05/2014 01/05/2014 Completed combo q5min, order duration: 3 doses, first dose 01/05/14 7:40:00 CDT, stop date 01/05/14 7:54:00 CDTPhenylephrine 2.5%: 0.1mL T ropicamide 1%: 0.1mL G atifloxacin 0.3%: 0.1mL T otal Volume: 0.3 mL tetracaine 0.5% 1 drops, Soln, Eye-Operative, Once, 01/05/2014 01/05/2014 Completed ophthalmic solution first dose 01/05/14 8:00:00 CDT, stop date 01/05/14 8:00:00 CDTCompounded from [facility] Ophth Combo 1 drops, Soln, Eye-Operative, 01/05/2014 01/05/2014 Pending q5min, order duration: 3 doses, Complete first dose 01/05/14 8:55:00 CDT, stop date 01/05/14 9:09:00 CDTVigamox 0.5%: 0.0375 mL A lphagan 0.1%: 0.0375 mL N evanac 0.1%: 0.0375 mL O mnipred 1%: 0.0375 mL T otal Volume: 0.15 mL * Post Op Compound from [facility]* Vital Signs Most recent to oldest [Reference Range]: 1 2 Temperature Oral [35.8-37.3 DegC] 36.2 DegC (01/05/2014 07:41:00) Peripheral Pulse Rate [55-105 bpm] 60 bpm (01/05/2014 07:41:00) Heart Rate Monitored [60-100 bpm] 66 bpm (01/05/2014 08:45:00) Respiratory Rate [12-20] 16 (01/05/2014 08:45:00) 16 (01/05/2014 07:41:00) SpO2 [90-100 %] 95 % (01/05/2014 08:45:00) 99 % (01/05/2014 07:41:00) Systolic Blood Pressure [110-120 mmHg] 142 mmHg *HI* (01/05/2014 08:45:00) 148 mmHg *HI* (01/05/2014 07:41:00) Diastolic Blood Pressure [65-85 mmHg] 81 mmHg (01/05/2014 08:45:00) 84 mmHg (01/05/2014 07:41:00) Mean Arterial Pressure, Cuff 101.3 mmHg (01/05/2014 08:45:00) Height/Length Estimated 172 cm (01/04/2014 10:44:00) Weight Estimated 93 kg (01/04/2014 10:44:00) Body Mass Index Estimated 31.44 kg/m2 (01/04/2014 10:44:00) Procedures Procedures Date Related Diagnosis BACK SURGERY X 2 CHOLECYSTECTOMY
--- OUTSIDE RECORDS SUMMARY | 2018-08-07 07:08 | XMS REPORT | CCD ---
Author Author Auto Generated Organization [facility] Address Unknown Phone Unavailable Care Team Providers Care Lift Manager Name Role Phone Luis Miguel Benoit Allergies, Adverse Reactions, Alerts Substance Reaction Status NKDA Active Problem List Condition Effective Dates Status Acute respiratory failure 11/19/2011 Active Diabetes mellitus Active Dysphagia Active GERD - Gastro-esophageal reflux disease Active Hyperlipidemia Active Myasthenia gravis Active Swallowing Active Medications Medication Instructions Start Date End Date Status NovoLog FlexPen 7 unit, 0.07 mL, Route: SUB-Q, Drug 11/25/2011 11/26/2011 Discontinued form: SOLN, Sliding Scale, PRN Blood Glucose Results, Start date: 11/25/11 15:30:00, Duration: 30 day, Stop date: 12/25/11 15:29:00 NovoLog FlexPen 4 unit, 0.04 mL, Route: SUB-Q, Drug 11/25/2011 11/26/2011 Discontinued form: SOLN, Sliding Scale, PRN Blood Glucose Results, Start date: 11/25/11 15:30:00, Duration: 30 day, Stop date: 12/25/11 15:29:00 acetylcysteine 600 mg, 3 mL, Route: NEB, Drug 11/23/2011 11/26/2011 Discontinued Form: INGRID RQ6H, Start date: 11/23/11 20:00:00, Duration: 30 day, Stop date: 12/23/11 14:00:00 potassium chloride 40 mEq, 30 mL, Route: PO, Drug 11/23/2011 11/23/2011 Completed form: LIQ, ONCE, Start date: 11/23/11 11:00:00, Stop date: 11/23/11 11:00:00 pneumococcal 0.5 ml, Route: IM, Drug Form: INJ, 11/19/2011 11/19/2011 Canceled 23-valent vaccine Daily, Start date: 11/19/11 9:00:00, Duration: 1 doses or times, Stop date: 11/19/11 9:00:00 influenza virus 0.5 mL, Route: IM, Drug Form: INJ, 11/19/2011 11/19/2011 Canceled vaccine, inactivated Daily, Start date: 11/19/11 9:00:00, Duration: 1 doses or times, Stop date: 11/19/11 9:00:00 lisinopril Substitution Allowed 11/18/2011 Ordered pyridostigmine Substitution Allowed 11/18/2011 Ordered Kalexate Substitution Allowed 11/18/2011 Ordered Crestor Substitution Allowed 11/18/2011 Ordered metFORmin Substitution Allowed 11/18/2011 Ordered glyBURIDE Substitution Allowed 11/18/2011 Ordered methylPREDNISolone 50 mg, 0.8 mL, Route: IV, Drug 12/04/2011 12/05/2011 Discontinued form: INJ, Q24H, Start date: 12/04/11 16:00:00, Duration: 30 day, Stop date: 01/02/12 16:00:00 methylPREDNISolone 100 mg, 1.6 mL, Route: IV, Drug 12/03/2011 12/04/2011 Discontinued form: INJ, Q24H, Start date: 12/03/11 21:00:00, Duration: 30 day, Stop date: 01/01/12 21:00:00 Lovenox 40 mg, 0.4 mL, Route: SUB-Q, Drug 11/24/2011 11/30/2011 Discontinued form: INJ, [id number], Start date: 11/24/11 14:00:00, Duration: 30 day, Stop date: 12/23/11 14:00:00 Sodium Chloride 1,000 mL, Rate: 40 ml/hr, Infuse 11/20/2011 11/27/2011 Discontinued 0.45% IV 1,000 mL over: 25 hr, Route: IV, Dosing Weight 73 kg, Total Volume: 1,000, Start date: 11/20/11 12:58:00, Stop date: 12/20/11 12:57:00 DuoNeb inhalation 3 mL, Route: NEB, Drug Form: SOLN, 11/24/2011 12/08/2011 Discontinued solution RQ6H, Start date: 11/24/11 14:00:00, Duration: 30 day, Stop date: 12/24/11 8:00:00 Mestinon 60 mg, 1 tab, Route: NG, Drug form: 11/24/2011 11/26/2011 Discontinued TAB, Q12H, Start date: 11/24/11 15:00:00, Duration: 30 day, Stop date: 12/24/11 9:00:00 methylPREDNISolone 800 mg, Route: IV, Drug form: INJ, 11/30/2011 12/01/2011 Discontinued QPM, Start date: 11/30/11 17:00:00, Duration: 30 day, Stop date: 12/29/11 17:00:00 glucagon 1 mg, Route: SUB-Q, Drug form: 11/29/2011 12/08/2011 Discontinued PDR/INJ, Sliding Scale, PRN Blood Glucose Results, Start date: 11/29/11 19:32:00, Duration: 30 day, Stop date: 12/29/11 19:31:00 NS (Bolus) IV 1,000 1,000 mL, Rate: 100 ml/hr, Infuse 11/18/2011 11/18/2011 Discontinued mL over: 10 hr, Route: IV, Dosing Weight 70.455 kg, Total Volume: 1,000, Start date: 11/18/11 16:20:00, Duration: 1 day, Stop date: 11/19/11 16:19:00 Dextrose 50% in 50 mL, Route: IVP, Start date: 11/29/2011 12/08/2011 Discontinued Water IV 11/29/11 19:32:00, Duration: 30 day, Stop date: 12/29/11 19:31:00, PRN Blood Glucose Results meperidine 50 mg, 1 mL, Route: IV, Drug form: 12/01/2011 12/05/2011 Completed INJ, Q4H, PRN Other -See Comment, Start date: 12/01/11 16:15:00, Duration: 4 day, Stop date: 12/05/11 16:14:00 methylPREDNISolone 1,000 mg, Route: IV, Drug form: 11/24/2011 11/24/2011 Completed INJ, ONCE, Start date: 11/24/11 15:00:00, Stop date: 11/24/11 15:00:00 Dextrose 50% in 25 mL, Route: IVP, Start date: 11/29/2011 12/08/2011 Discontinued Water IV 11/29/11 19:31:00, Duration: 30 day, Stop date: 12/29/11 19:30:00, PRN Blood Glucose Results NovoLog FlexPen 14 unit, 0.14 mL, Route: SUB-Q, 11/29/2011 12/08/2011 Discontinued Drug form: SOLN, Sliding Scale, PRN Blood Glucose Results, Start date: 11/29/11 19:31:00, Duration: 30 day, Stop date: 12/29/11 19:30:00 NovoLog FlexPen 12 unit, 0.12 mL, Route: SUB-Q, 11/29/2011 12/08/2011 Discontinued Drug form: SOLN, Sliding Scale, PRN Blood Glucose Results, Start date: 11/29/11 19:31:00, Duration: 30 day, Stop date: 12/29/11 19:30:00 NovoLog FlexPen 10 unit, 0.1 mL, Route: SUB-Q, Drug 11/29/2011 12/08/2011 Discontinued form: SOLN, Sliding Scale, PRN Blood Glucose Results, Start date: 11/29/11 19:31:00, Duration: 30 day, Stop date: 12/29/11 19:30:00 NovoLog FlexPen 8 unit, 0.08 mL, Route: SUB-Q, Drug 11/29/2011 12/08/2011 Discontinued form: SOLN, Sliding Scale, PRN Blood Glucose Results, Start date: 11/29/11 19:31:00, Duration: 30 day, Stop date: 12/29/11 19:30:00 NovoLog FlexPen 4 unit, 0.04 mL, Route: SUB-Q, Drug 11/29/2011 12/08/2011 Discontinued form: SOLN, Sliding Scale, PRN Blood Glucose Results, Start date: 11/29/11 19:31:00, Duration: 30 day, Stop date: 12/29/11 19:30:00 albuterol 2.5 mg, 0.5 mL, Route: INHALATION, 11/19/2011 11/24/2011 Discontinued Drug form: SOLN, RQ6H, Start date: 11/19/11 20:00:00, Duration: 30 day, Stop date: 12/19/11 14:00:00 sodium chloride 0.9% 3 mL, Route: INHALATION, Drug Form: 11/19/2011 11/24/2011 Discontinued Inhalation MISC, RQ6H, Start date: 11/19/11 20:00:00, Duration: 30 day, Stop date: 12/19/11 14:00:00 NovoLog FlexPen 2 unit, 0.02 mL, Route: SUB-Q, Drug 11/29/2011 12/08/2011 Discontinued form: SOLN, Sliding Scale, PRN Blood Glucose Results, Start date: 11/29/11 19:31:00, Duration: 30 day, Stop date: 12/29/11 19:30:00 Merrem 500 mg, Route: IVPB, [id number], Start 11/19/2011 12/04/2011 Discontinued date: 11/19/11 18:00:00, Duration: 30 day, Stop date: 12/19/11 16:00:00 methylPREDNISolone 100 mg, 1.6 mL, Route: IV, Drug 12/03/2011 12/03/2011 Discontinued form: INJ, Q24H, Start date: 12/03/11 21:00:00, Duration: 30 day, Stop date: 01/01/12 21:00:00 Lactated Ringers 1,000 mL, Rate: TITRATE PER MD, 12/01/2011 12/01/2011 Discontinued Injection IV 1,000 Route: IV, Dosing Weight 73.007 kg, mL Total Volume: 1,000, Start date: 12/01/11 13:14:00, Duration: 6 hr, Stop date: 12/01/11 19:13:00 glucagon 1 mg, Route: SUB-Q, Drug form: 11/18/2011 11/29/2011 Discontinued PDR/INJ, Sliding Scale, PRN Blood Glucose Results, Start date: 11/18/11 20:43:00, Duration: 30 day, Stop date: 12/18/11 20:42:00 Dextrose 50% in 50 mL, Route: IVP, Start date: 11/18/2011 11/29/2011 Discontinued Water IV 11/18/11 20:43:00, Duration: 30 day, Stop date: 12/18/11 20:42:00, PRN Blood Glucose Results Dextrose 50% in 25 mL, Route: IVP, Start date: 11/18/2011 11/29/2011 Discontinued Water IV 11/18/11 20:43:00, Duration: 30 day, Stop date: 12/18/11 20:42:00, PRN Blood Glucose Results NovoLog FlexPen 11 unit, 0.11 mL, Route: SUB-Q, 11/18/2011 11/25/2011 Discontinued Drug form: SOLN, Sliding Scale, PRN Blood Glucose Results, Start date: 11/18/11 20:42:00, Duration: 30 day, Stop date: 12/18/11 20:41:00 NovoLog FlexPen 9 unit, 0.09 mL, Route: SUB-Q, Drug 11/18/2011 11/25/2011 Discontinued form: SOLN, Sliding Scale, PRN Blood Glucose Results, Start date: 11/18/11 20:42:00, Duration: 30 day, Stop date: 12/18/11 20:41:00 NovoLog FlexPen 13 unit, 0.13 mL, Route: SUB-Q, 11/18/2011 11/25/2011 Discontinued Drug form: SOLN, Sliding Scale, PRN Blood Glucose Results, Start date: 11/18/11 20:42:00, Duration: 30 day, Stop date: 12/18/11 20:41:00 NovoLog FlexPen 6 unit, 0.06 mL, Route: SUB-Q, Drug 11/18/2011 11/25/2011 Discontinued form: SOLN, Sliding Scale, PRN Blood Glucose Results, Start date: 11/18/11 20:42:00, Duration: 30 day, Stop date: 12/18/11 20:41:00 NovoLog FlexPen 4 unit, 0.04 mL, Route: SUB-Q, Drug 11/18/2011 11/25/2011 Discontinued form: SOLN, Sliding Scale, PRN Blood Glucose Results, Start date: 11/18/11 20:42:00, Duration: 30 day, Stop date: 12/18/11 20:41:00 NovoLog FlexPen 15 unit, 0.15 mL, Route: SUB-Q, 11/18/2011 11/25/2011 Discontinued Drug form: SOLN, Sliding Scale, PRN Blood Glucose Results, Start date: 11/18/11 20:43:00, Duration: 30 day, Stop date: 12/18/11 20:42:00 Sodium Chloride 0.9% 1,000 mL, Rate: 100 ml/hr, Infuse 11/18/2011 11/20/2011 Discontinued IV 1,000 mL over: 10 hr, Route: IV, kg, Total Volume: 1,000, Start date: 11/18/11 20:42:00, Duration: 30 day, Stop date: 12/19/11 14:08:00 propofol 10 mg/ml IV, Start date: 11/19/11 17:34:00, 11/19/2011 11/30/2011 Discontinued (titrate) 1,000 mg Duration: 30, 100 ml lactulose 20 gm, 30 mL, Route: PO, Drug form: 11/22/2011 11/22/2011 Completed SYRP, Bedtime, PRN Constipation, Start date: 11/22/11 16:55:00, Stop date: 11/22/11 23:59:00 midazolam 50 mg IV, Start date: 11/20/11 18:47:00, 11/20/2011 11/30/2011 Discontinued Duration: 30, 50 ml Protonix 40 mg, Route: IVP, Drug form: INJ, 11/20/2011 12/08/2011 Discontinued Before Dinner, Start date: 11/20/11 16:30:00, Duration: 30 day, Stop date: 12/19/11 16:30:00 lactulose 20 gm, 30 mL, Route: PO, Drug form: 11/22/2011 11/22/2011 Completed SYRP, ONCE, Start date: 11/22/11 18:00:00, Stop date: 11/22/11 18:00:00 CellCept 500 mg, 2.5 mL, Route: PEG, Drug 12/02/2011 12/08/2011 Discontinued form: SOLN, [id number], Start date: 12/02/11 18:00:00, Duration: 30 day, Stop date: 01/01/12 6:00:00 Saline Flush 0.9% 5 ml, Route: IVP, Drug Form: INJ, 11/18/2011 11/18/2011 Discontinued PRN, PRN Line Flush, Start date: 11/18/11 18:25:00, Duration: 24 hr, Stop date: 11/19/11 18:24:00 BD Normal Saline 10 mL, Route: IV, Drug Form: INJ, 11/18/2011 12/08/2011 Discontinued Flush PRN, PRN Line Flush, Start date: 11/18/11 20:41:00, Duration: 30 day, Stop date: 12/18/11 20:40:00 BD Normal Saline 30 mL, Route: IV, Drug Form: INJ, 11/18/2011 12/08/2011 Discontinued Flush PRN, PRN Line Flush, Start date: 11/18/11 20:41:00, Duration: 30 day, Stop date: 12/18/11 20:40:00 Insulin regular 100 99 mL, Rate: follow MICU/IMCU 11/26/2011 11/29/2011 Discontinued unit + Sodium insulin drip Protocol, Route: IV, Chloride 0.9% IV 99 Dosing Weight 73.007 kg, Total mL Volume: 100, Start date: 11/26/11 7:26:00, Duration: 30 day, Stop date: 12/26/11 7:25:00 succinylcholine 100 mg, 5 mL, Route: IV, Drug form: 11/19/2011 11/19/2011 Completed INJ, ONCE, Start date: 11/19/11 18:00:00, Stop date: 11/19/11 18:00:00 methylPREDNISolone 1,000 mg, Route: IV, Drug form: 11/25/2011 11/29/2011 Discontinued INJ, Q24H, Start date: 11/25/11 16:00:00, Duration: 30 day, Stop date: 12/24/11 16:00:00 midazolam 2 mg, 2 mL, Route: IV, Drug form: 11/19/2011 11/19/2011 Completed INJ, ONCE, Start date: 11/19/11 18:00:00, Stop date: 11/19/11 18:00:00 lactulose 20 gm, 30 mL, Route: PO, Drug form: 11/26/2011 12/08/2011 Discontinued SYRP, Q12H, PRN Constipation, Start date: 11/26/11 11:39:00, Duration: 30 day, Stop date: 12/26/11 11:38:00 lactulose 20 gm, 30 mL, Route: PO, Drug form: 11/26/2011 11/26/2011 Completed SYRP, ONCE, Start date: 11/26/11 12:30:00, Stop date: 11/26/11 12:30:00 methylPREDNISolone 125 mg, 2 mL, Route: IV, Drug form: 11/23/2011 11/23/2011 Completed INJ, ONCE, Start date: 11/23/11 19:00:00, Stop date: 11/23/11 19:00:00 docusate sodium 150 100 mg, 10 mL, Route: NG, Drug 11/26/2011 12/05/2011 Discontinued mg/15 mL oral liquid form: LIQ, BID, Start date: 11/26/11 12:00:00, Duration: 30 day, Stop date: 12/26/11 9:00:00 Privigen 30 gm, 300 mL, Route: IVPB, Drug 11/19/2011 11/23/2011 Completed form: SOLN, QPM, Start date: 11/19/11 18:00:00, Duration: 5 doses or times, Stop date: 11/23/11 17:00:00 predniSONE 40 mg, 2 tab, Route: PO, Drug form: 12/06/2011 12/08/2011 Discontinued TAB, Daily, Start date: 12/06/11 9:00:00, Duration: 30 day, Stop date: 01/04/12 9:00:00 methylPREDNISolone 250 mg, Route: IV, Drug form: INJ, 12/02/2011 12/03/2011 Discontinued Q24H, Start date: 12/02/11 17:00:00, Duration: 30 day, Stop date: 12/31/11 17:00:00 methylPREDNISolone 500 mg, Route: IV, Drug form: INJ, 12/02/2011 12/02/2011 Discontinued QPM, Start date: 12/02/11 17:00:00, Duration: 30 day, Stop date: 12/31/11 17:00:00 pneumococcal 0.5 ml, Route: IM, Drug Form: INJ, 11/19/2011 11/19/2011 Completed 23-valent vaccine Start date: 11/19/11 9:00:00, Stop date: 11/19/11 9:00:00 influenza virus 0.5 mL, Route: IM, Drug Form: INJ, 11/19/2011 11/19/2011 Completed vaccine, inactivated Start date: 11/19/11 9:00:00, Stop date: 11/19/11 9:00:00 Mestinon 30 mg, 0.5 tab, Route: PEG, Drug 12/01/2011 12/08/2011 Discontinued form: TAB, Q8H-01, Start date: 12/01/11 21:00:00, Stop date: 12/31/11 9:00:00 Sodium Chloride 0.9% 1,000 mL, Rate: 40 ml/hr, Infuse 11/27/2011 12/08/2011 Discontinued IV 1,000 mL over: 25 hr, Route: IV, Dosing Weight 73.007 kg, Total Volume: 1,000, Start date: 11/27/11 15:22:00, Stop date: 12/27/11 15:21:00 NovoLog FlexPen 17 unit, 0.17 mL, Route: SUB-Q, 11/25/2011 11/26/2011 Discontinued Drug form: SOLN, Sliding Scale, PRN Blood Glucose Results, Start date: 11/25/11 15:31:00, Duration: 30 day, Stop date: 12/25/11 15:30:00 NovoLog FlexPen 15 unit, 0.15 mL, Route: SUB-Q, 11/25/2011 11/26/2011 Discontinued Drug form: SOLN, Sliding Scale, PRN Blood Glucose Results, Start date: 11/25/11 15:31:00, Duration: 30 day, Stop date: 12/25/11 15:30:00 NovoLog FlexPen 12 unit, 0.12 mL, Route: SUB-Q, 11/25/2011 11/26/2011 Discontinued Drug form: SOLN, Sliding Scale, PRN Blood Glucose Results, Start date: 11/25/11 15:31:00, Duration: 30 day, Stop date: 12/25/11 15:30:00 NovoLog FlexPen 10 unit, 0.1 mL, Route: SUB-Q, Drug 11/25/2011 11/26/2011 Discontinued form: SOLN, Sliding Scale, PRN Blood Glucose Results, Start date: 11/25/11 15:30:00, Duration: 30 day, Stop date: 12/25/11 15:29:00 Protonix 40 mg, Route: IV, Drug form: INJ, 11/19/2011 11/19/2011 Discontinued Q12H, Start date: 11/19/11 12:00:00, Duration: 30 day, Stop date: 12/19/11 9:00:00 Levemir FlexPen 10 unit, 0.1 mL, Route: SUB-Q, Drug 12/04/2011 12/08/2011 Discontinued form: INJ, Bedtime, Start date: 12/04/11 21:00:00, Duration: 30 day, Stop date: 01/02/12 21:00:00 Immunizations Vaccine Date Status influenza virus vaccine, inactivated 11/19/2011 Not Done pneumococcal 23-valent vaccine 11/19/2011 Not Done Vital Signs Most recent to oldest [Reference Range]: 1 2 3 4 Height 172.72 cm (11/19/2011 00:00:00) 172.72 cm (11/18/2011 15:27:00) Current Weight 78.091 kg (12/07/2011 06:48:00) 78.091 kg (12/07/2011 06:48:00) 78.959 kg (12/06/2011 04:13:00) 78.835 kg (12/06/2011 04:13:00) Temperature Oral [96.4-99.1 DegF] 97.5 DegF (12/08/2011 07:00:00) 96.8 DegF (12/08/2011 04:39:00) 97.0 DegF (12/08/2011 01:26:00) Systolic Blood Pressure [90-140 mmHg] 108 mmHg (12/08/2011 07:00:00) 117 mmHg (12/08/2011 04:39:00) 115 mmHg (12/08/2011 01:26:00) Diastolic Blood Pressure [60-90 mmHg] 66 mmHg (12/08/2011 07:00:00) 76 mmHg (12/08/2011 04:39:00) 83 mmHg (12/08/2011 01:26:00) Respiratory Rate [14-20 BRMIN] 16 BRMIN (12/08/2011 07:00:00) 20 BRMIN (12/08/2011 04:39:00) 20 BRMIN (12/08/2011 01:26:00) Peripheral Pulse Rate [60-100 bpm] 70 bpm (12/08/2011 07:00:00) 72 bpm (12/08/2011 04:39:00) 65 bpm (12/08/2011 01:26:00) Weight 73.007 kg (11/20/2011 03:52:00) 70.057 kg (11/19/2011 00:00:00) 70.455 kg (11/18/2011 15:27:00) Results BACTERIAL - SEROLOGY Most recent to [Reference Range]: 1 2 3 MRSA by PCR Negative 1 (11/19/2011 15:40:00) 1Interpretive Data: INTERPRETATION: Negative......No MRSA DNA detected by PCR Positive......MRSA DNA detected by PCRASSAY LIMITATIONS:This is a screening test for colonization by MRSA. A positive test result indicates the patient is c olonized by MRSA, but does not necessarily mean that an infection is present or that treatment is necessary. Likewise, a negative test does not exclude coloniz ation or infection. Patients should be evaluatedclinically for symptoms and sig ns of infection before making therapeutic decisions. Routine decolonization is discouraged and should only be considered for select patients after consultation with an infectious diseases specialist. BEDSIDE GLUCOSE TESTING Most recent to [Reference Range]: 1 2 3 Gluc POC Lifscn [70-99 mg/dL] 197 mg/dL 2 *HI* (12/08/2011 16:11:00) 129 mg/dL 3 *HI* (12/08/2011 11:49:00) 82 mg/dL 4 (12/08/2011 05:49:00) Comment1 Notify RN *NA* (12/05/2011 16:04:00) Notify RN *NA* (12/05/2011 11:21:00) Notify RN *NA* (12/05/2011 06:14:00) 2Interpretive Data: Upper Reportable Limit: 200 mg/dL. 3Interpretive Data: Upper Reportable Limit: 200 mg/dL. 4Interpretive Data: Upper Reportable Limit: 200 mg/dL. CHEMISTRY Most recent to [Reference Range]: 1 2 3 Sodium Lvl [135-145 mEq/L] 142 mEq/L (12/05/2011 05:33:00) 144 mEq/L (12/04/2011 04:10:00) 147 mEq/L *HI* (12/02/2011 05:14:00) Potassium Lvl [3.5-5.1 mEq/L] 3.9 mEq/L (12/05/2011 05:33:00) 4.3 mEq/L (12/04/2011 04:10:00) 4.0 mEq/L (12/02/2011 05:14:00) Chloride Lvl [95-109 mEq/L] 106 mEq/L (12/05/2011 05:33:00) 109 mEq/L (12/04/2011 04:10:00) 111 mEq/L *HI* (12/02/2011 05:14:00) CO2 [24-32 mEq/L] 32 mEq/L (12/05/2011 05:33:00) 30 mEq/L (12/04/2011 04:10:00) 29 mEq/L (12/02/2011 05:14:00) AGAP [10.0-20.0 mEq/L] 7.9 mEq/L *LOW* (12/05/2011 05:33:00) 9.3 mEq/L *LOW* (12/04/2011 04:10:00) 11.0 mEq/L (12/02/2011 05:14:00) Creatinine Lvl [0.5-1.4 mg/dL] 0.9 mg/dL (12/05/2011 05:33:00) 0.9 mg/dL (12/04/2011 04:10:00) 0.8 mg/dL (12/02/2011 05:14:00) BUN [7-22 mg/dL] 31 mg/dL *HI* (12/05/2011 05:33:00) 39 mg/dL *HI* (12/04/2011 04:10:00) 46 mg/dL *HI* (12/02/2011 05:14:00) B/C Ratio [6-25] 34 *HI* (12/05/2011 05:33:00) 43 *HI* (12/04/2011 04:10:00) 58 *HI* (12/02/2011 05:14:00) Glucose Lvl [70-99 mg/dL] 139 mg/dL 5 *HI* (12/05/2011 05:33:00) 207 mg/dL 6 *HI* (12/04/2011 04:10:00) 165 mg/dL 7 *HI* (12/02/2011 05:14:00) Total Protein [6.4-8.4 g/dL] 5.6 g/dL *LOW* (12/05/2011 05:33:00) 5.9 g/dL *LOW* (12/04/2011 04:10:00) 6.4 g/dL (12/02/2011 05:14:00) Albumin Lvl [3.5-5.0 g/dL] 2.0 g/dL *LOW* (12/05/2011 05:33:00) 2.1 g/dL *LOW* (12/04/2011 04:10:00) 2.3 g/dL *LOW* (12/02/2011 05:14:00) Globulin [2.0-4.0 g/dL] 3.6 g/dL (12/05/2011 05:33:00) 3.8 g/dL (12/04/2011 04:10:00) 4.1 g/dL *HI* (12/02/2011 05:14:00) A/G Ratio [0.7-1.6] 0.6 *LOW* (12/05/2011 05:33:00) 0.6 *LOW* (12/04/2011 04:10:00) 0.6 *LOW* (12/02/2011 05:14:00) Calcium Lvl [8.5-10.5 mg/dL] 7.3 mg/dL *LOW* (12/05/2011 05:33:00) 7.7 mg/dL *LOW* (12/04/2011 04:10:00) 8.1 mg/dL *LOW* (12/02/2011 05:14:00) Magnesium Lvl [1.8-2.4 mg/dL] 1.9 mg/dL (11/23/2011 03:05:00) ALT [0-65 U/L] 238 U/L *HI* (12/05/2011 05:33:00) 346 U/L *HI* (12/04/2011 04:10:00) 180 U/L *HI* (12/02/2011 05:14:00) AST [0-37 U/L] 96 U/L *HI* (12/05/2011 05:33:00) 178 U/L *HI* (12/04/2011 04:10:00) 73 U/L *HI* (12/02/2011 05:14:00) Alk Phos [39-136 U/L] 95 U/L (12/05/2011 05:33:00) 120 U/L (12/04/2011 04:10:00) 73 U/L (12/02/2011 05:14:00) Bili Total [0.2-1.3 mg/dL] 0.4 mg/dL (12/05/2011 05:33:00) 0.6 mg/dL (12/04/2011 04:10:00) 0.6 mg/dL (12/02/2011 05:14:00) Bili Direct [0.0-0.3 mg/dL] 0.2 mg/dL (11/30/2011 03:05:00) 0.2 mg/dL (11/29/2011 03:00:00) Bili Indirect [0.0-1.0 mg/dL] 0.3 mg/dL (11/30/2011 03:05:00) 0.2 mg/dL (11/29/2011 03:00:00) BNP [<=100 pg/mL] 80 pg/mL 8 (11/23/2011 03:15:00) Hgb A1C 5.6 % 9 *NA* (12/04/2011 04:10:00) pH Art [7.35-7.45] 7.54 *HI* (11/29/2011 12:42:00) 7.41 (11/29/2011 04:39:00) 7.42 (11/28/2011 05:19:00) pCO2 Art [35-45 mmHg] 34 mmHg *LOW* (11/29/2011 12:42:00) 49 mmHg *HI* (11/29/2011 04:39:00) 41 mmHg (11/28/2011 05:19:00) pO2 Art [80-100 mmHg] 129 mmHg *HI* (11/29/2011 12:42:00) 107 mmHg *HI* (11/29/2011 04:39:00) 88 mmHg (11/28/2011 05:19:00) HCO3 Art [22-26 mMol/L] 28 mMol/L *HI* (11/29/2011 12:42:00) 30 mMol/L *HI* (11/29/2011 04:39:00) 26 mMol/L (11/28/2011 05:19:00) BE Art [-2-2 mMol/L] 6 mMol/L *HI* (11/29/2011 12:42:00) 4 mMol/L *HI* (11/29/2011 04:39:00) 2 mMol/L (11/28/2011 05:19:00) O2 Sat Art [95.0-100.0 %] 99.2 % (11/29/2011 12:42:00) 98.5 % (11/29/2011 04:39:00) 97.1 % (11/28/2011 05:19:00) Site Art Right Ra (11/29/2011 12:42:00) Right Ra (11/29/2011 04:39:00) Right Ra (11/28/2011 05:19:00) Allens Art Positive (11/29/2011 12:42:00) Positive (11/29/2011 04:39:00) Positive (11/28/2011 05:19:00) Mode Art Tube Comp *NA* (11/29/2011 12:42:00) Simv (11/29/2011 04:39:00) Simv (11/28/2011 05:19:00) Rate Art 4 *NA* (11/29/2011 04:39:00) 4 *NA* (11/28/2011 05:19:00) 6 *NA* (11/27/2011 04:22:00) Vt Art 550 *NA* (11/29/2011 04:39:00) 550 *NA* (11/28/2011 05:19:00) 550 *NA* (11/27/2011 04:22:00) FiO2 Art 35.0 *NA* (11/29/2011 12:42:00) 35.0 *NA* (11/29/2011 04:39:00) 35.0 *NA* (11/28/2011 05:19:00) PEEP Art 5.0 *NA* (11/29/2011 04:39:00) 5.0 *NA* (11/28/2011 05:19:00) 5.0 *NA* (11/27/2011 04:22:00) PS Art 12 *NA* (11/29/2011 04:39:00) 12 *NA* (11/28/2011 05:19:00) 12 *NA* (11/27/2011 04:22:00) 5Interpretive Data: Adult reference range values reflect the clinical guidelinesof the [employer]. 6Interpretive Data: Adult reference range values reflect the clinical guidelinesof the [employer]. 7Interpretive Data: Adult reference range values reflect the clinical guidelinesof the [employer]. 8Interpretive Data: Elevated results are in line with increasing severity of congestive heart failure. Minor elevations between 100 and 300 may be seen with Myocardial Ischemia, Sodium retaining drugs, and compensated/treated heart failure. 9Interpretive Data: HbA1C% eAG(mg/dL) Interpretation 6.0 126 Very good control 6.5 140 Very good control 7.0 154 Good Control 7.5 169 Good Control 8.0 183 Marginal Control, take action to lower 8.5 197 Marginal Control, take action to lower 9.0 212 Poor Control, take action to lower 9.5 226 Poor Control, take action to lower10.0 240 Poor Control, take action to lower HEMATOLOGY Most recent to oldest [Reference Range]: 1 2 3 WBC [3.7-10.4 K/CMM] 6.3 K/CMM (12/05/2011 05:33:00) 5.8 K/CMM (12/04/2011 04:10:00) 3.8 K/CMM (12/02/2011 05:14:00) RBC [4.70-6.10 M/CMM] 3.75 M/CMM *LOW* (12/05/2011 05:33:00) 3.95 M/CMM *LOW* (12/04/2011 04:10:00) 3.98 M/CMM *LOW* (12/02/2011 05:14:00) Hgb [14.0-18.0 g/dL] 11.1 g/dL *LOW* (12/05/2011 05:33:00) 11.6 g/dL *LOW* (12/04/2011 04:10:00) 11.4 g/dL *LOW* (12/02/2011 05:14:00) Hct [42.0-54.0 %] 32.6 % *LOW* (12/05/2011 05:33:00) 34.7 % *LOW* (12/04/2011 04:10:00) 34.6 % *LOW* (12/02/2011 05:14:00) MCV [80.0-94.0 fL] 87.1 fL (12/05/2011 05:33:00) 87.8 fL (12/04/2011 04:10:00) 86.9 fL (12/02/2011 05:14:00) MCH [27.0-31.0 pg] 29.7 pg (12/05/2011 05:33:00) 29.3 pg (12/04/2011 04:10:00) 28.6 pg (12/02/2011 05:14:00) MCHC [32.0-36.0 g/dL] 34.0 g/dL (12/05/2011 05:33:00) 33.4 g/dL (12/04/2011 04:10:00) 33.0 g/dL (12/02/2011 05:14:00) RDW [11.5-14.5 %] 14.5 % (12/05/2011 05:33:00) 15.0 % *HI* (12/04/2011 04:10:00) 14.4 % (12/02/2011 05:14:00) Platelet [133-450 K/CMM] 170 K/CMM (12/05/2011 05:33:00) 171 K/CMM (12/04/2011 04:10:00) 239 K/CMM (12/02/2011 05:14:00) MPV [7.4-10.4 fL] 8.6 fL (12/05/2011 05:33:00) 9.0 fL (12/04/2011 04:10:00) 8.2 fL (12/02/2011 05:14:00) Segs [45.0-75.0 %] 79.8 % *HI* (12/05/2011 05:33:00) 93.1 % *HI* (12/04/2011 04:10:00) 92.6 % *HI* (12/02/2011 05:14:00) Lymphocytes [20.0-40.0 %] 12.7 % *LOW* (12/05/2011 05:33:00) 4.0 % *LOW* (12/04/2011 04:10:00) 5.4 % *LOW* (12/02/2011 05:14:00) Monocytes [2.0-12.0 %] 6.2 % (12/05/2011 05:33:00) 2.8 % (12/04/2011 04:10:00) 2.0 % (12/02/2011 05:14:00) Eosinophils [0.0-4.0 %] 1.1 % (12/05/2011 05:33:00) 0.1 % (12/04/2011 04:10:00) 0.0 % (12/02/2011 05:14:00) Basophils [0.0-1.0 %] 0.2 % (12/05/2011 05:33:00) 0.0 % (12/04/2011 04:10:00) 0.0 % (12/02/2011 05:14:00) Segs-Bands # [1.5-8.1 K/CMM] 5.0 K/CMM (12/05/2011 05:33:00) 5.4 K/CMM (12/04/2011 04:10:00) 3.5 K/CMM (12/02/2011 05:14:00) Lymphocytes # [1.0-5.5 K/CMM] 0.8 K/CMM *LOW* (12/05/2011 05:33:00) 0.2 K/CMM *LOW* (12/04/2011 04:10:00) 0.2 K/CMM *LOW* (12/02/2011 05:14:00) Monocytes # [0.0-0.8 K/CMM] 0.4 K/CMM (12/05/2011 05:33:00) 0.2 K/CMM (12/04/2011 04:10:00) 0.1 K/CMM (12/02/2011 05:14:00) Eosinophils # [0.0-0.5 K/CMM] 0.1 K/CMM (12/05/2011 05:33:00) 0.0 K/CMM (12/04/2011 04:10:00) 0.0 K/CMM (12/02/2011 05:14:00) Basophils # [0.0-0.2 K/CMM] 0.0 K/CMM (12/05/2011 05:33:00) 0.0 K/CMM (12/04/2011 04:10:00) 0.0 K/CMM (12/02/2011 05:14:00) PT [12.0-14.7 seconds] 15.3 seconds *HI* (12/01/2011 04:25:00) 14.3 seconds (11/30/2011 03:05:00) 14.0 seconds (11/29/2011 03:00:00) INR [0.85-1.17] 1.21 10 *HI* (12/01/2011 04:25:00) 1.11 11 (11/30/2011 03:05:00) 1.08 12 (11/29/2011 03:00:00) PTT [22.9-35.8 seconds] 28.2 seconds 13 (12/01/2011 04:25:00) 10Interpretive Data: RECOMMENDED RANGES FOR PROTIME INR: 2.0-3.0 for most medical and surgical thromboembolic states. 2.5-3.5 for artificial heart valves and recurrent embolism.INR SHOULD BE USED ONLY FOR PATIENTS ON STABLE ANTICOAGULANT THERAPY. 11Interpretive Data: RECOMMENDED RANGES FOR PROTIME INR: 2.0-3.0 for most medical and surgical thromboembolic states. 2.5-3.5 for artificial heart valves and recurrent embolism.INR SHOULD BE USED ONLY FOR PATIENTS ON STABLE ANTICOAGULANT THERAPY. 12Interpretive Data: RECOMMENDED RANGES FOR PROTIME INR: 2.0-3.0 for most medical and surgical thromboembolic states. 2.5-3.5 for artificial heart valves and recurrent embolism.INR SHOULD BE USED ONLY FOR PATIENTS ON STABLE ANTICOAGULANT THERAPY. 13Interpretive Data: Heparin Therapeutic Range: 57 - 92 Seconds IMMUNOLOGY Most recent to oldest [Reference Range]: 1 2 3 Hep Bs Ag [Negative] Negative *NA* (11/29/2011 03:00:00) Hep B Core IgM [Negative] Negative *NA* (11/29/2011 03:00:00) Hep A IgM [Negative] Negative *NA* (11/29/2011 03:00:00) Hep C Ab [Negative] Negative *NA* (11/29/2011 03:00:00) Microbiology Reports PROCEDURE:Culture: BAL Quantitative w/Gram Stain STATUS: Auth (Verified) BODY SITE: COLLECTED DATE/TIME: 11/20/2011 03:15:00 SOURCE: Mini Bronchial Alveolar Lavage FREE TEXT SOURCE: FINAL REPORTS Final Report No Growth PRELIMINARY REPORTS Preliminary Report No Growth; Holding STAIN REPORTS Stain Report Few WBC's No Organisms Seen PROCEDURE:Culture: Respiratory w/Gram Stain STATUS: Auth (Verified) BODY SITE: COLLECTED DATE/TIME: 11/19/2011 19:00:00 SOURCE: Trach Asp FREE TEXT SOURCE: FINAL REPORTS Final Report Normal Respiratory Claudia Isolated PRELIMINARY REPORTS Preliminary Report Holding For Better Growth STAIN REPORTS Stain Report Gram Stain Performed By: [facility] PROCEDURE:Gram Stain STATUS: Auth (Verified) BODY SITE: COLLECTED DATE/TIME: 11/19/2011 19:00:00 SOURCE: Trach Asp FREE TEXT SOURCE: FINAL REPORTS Final Report Rare WBC's Rare Gram Positive Cocci IN PAIRS Less Than 25 Squamous Epithelial Ce lls/Lpf
--- OUTSIDE RECORDS SUMMARY | 2018-08-07 07:08 | XMS REPORT ---
Author Author [facility] Address Unknown Phone Unavailable Care Team Providers Care De Icer Installer Name Role Phone NEDA TAMEZ Unavailable Unavailable Problems This patient has no known problems. Allergies, Adverse Reactions, Alerts This patient has no known allergies or adverse reactions. Medications This patient has no known medications. Results Test Description Test Time Test Comments Text Results Atomic Results Result Comments CHEST 2 VIEWS 2018-08-05 10:21:00 [place] [address] Patient Name: SHYANN NAPIER MR #: [id number] : 1950 Age/Sex: 68/M Req #: [id number] Adm Physician: Ordered by: NEDA TAMEZ MD Report #: [id number] Location: OR Room/Bed: Procedure: [id number] DX/CHEST 2 VIEWS Exam Date: 08/05/18 Exam Time: 0938 REPORT STATUS: Signed PROCEDURE: X-RAY CHEST, TWO VIEWS COMPARISON: None. INDIC ATIONS: PREOPERATIVE CHEST XRAY FOR SURGERY FINDINGS: LUNGS: No consolidations or edema. PLEURA: No effusions or pneumothorax. A benign-appearing faint pleural opacity in the right midlung zone laterally. HEART MEDIASTINUM: The heart is within normal size-limits. BONES SOFT TISSUES: There are degenerative changes of time. CONCLUSION: No acute thoracic abnormality. Mari Elaine D.O. Dictated by: Mari Elaine D.O. on 08/05/2018 at 10:21 Electronically approved by: Mari Elaine D.O. on 08/05/2018 at 10:21 Dictated By: MARI ELAINE DO 1021 Transcribed By: JL on 08/05/18 1021 COPY TO: NEDA TAMEZ MD
[2018-08-07 08:35] LABS: CALCIUM 9.1 mg/dL (8.4-10.2); CREATININE, SERUM 1.79 mg/dL (0.72-1.25)
[2018-08-07 10:55] VITALS: BP 132/75
--- NOTE | 2018-08-08 13:13 | Operative Report ---
DATE OF PROCEDURE: August 07, 2018 PREOPERATIVE DIAGNOSES 1. Right knee medial meniscus tear. 2. Right knee degenerative joint disease of the knee. POSTOPERATIVE DIAGNOSES 1. Right knee medial meniscus tear. 2. Right knee degenerative joint disease of the knee. 3. Right knee symptomatic medial shelf plica. PROCEDURES PERFORMED 1. Patient underwent a right knee examination under anesthesia. 2. Right knee arthroscopy. 3. Right knee partial medial meniscectomy. 4. Right knee chondroplasties of the patella, trochlea, medial femoral condyle, medial tibial plateau, the lateral femoral condyle, and lateral tibial plateau as well as a resection of a medial shelf plica. MECHANICAL PROJECT MANAGER: Giovana Lugo NP ANESTHESIA: General endotracheal intubation anesthesia. IV FLUIDS: Per the anesthesia record. DESCRIPTION OF PROCEDURE: Mr. Sanchez was taken to the operating room and placed in the supine position on the operating room table. Following induction of general anesthesia as well as endotracheal intubation, the patient's right lower extremity was examined under anesthesia. He was found to have a mild effusion of the knee joint but an otherwise ligamentously stable knee. The patient's lower extremity was prepped and draped in standard surgical fashion. A 2-portal technique was used to provide this patient arthroscopic evaluation of the knee joint. Examination of the suprapatellar pouch, medial and lateral gutters found no evidence of loose bodies. There was, however, chondromalacia of the patellar and trochlear surfaces. There was also a large and inflamed medial shelf plica interdigitating between the patella and trochlea. The scope was advanced to the medial compartment. Examination of the medial compartment demonstrated a torn and macerated medial meniscus. There was also chondromalacia of the articulating surfaces. A combination of biting forceps and a motorized shaver were used to resect the torn portion of the meniscus. Chondroplasties of the medial femoral condyle and medial tibial plateau were performed at this time. The scope was advanced to the intercondylar notch. Anterior cruciate ligament was identified and found to be intact. Scope was advanced to the lateral compartment, and there was no meniscus pathology. There was chondromalacia of the articulating surfaces. Chondroplasties of lateral femoral condyle and lateral tibial plateau were performed at this time. The scope was then placed in the suprapatellar pouch, and chondroplasties of the patella and trochlea were performed. A medial shelf plica was also resected at this time. The knee was deflated of its sterile normal saline. The portal sites were closed in a single-layer fashion. Sterile dressings were applied. The patient was awakened and taken to the postanesthesia care unit in stable condition. Job#: [id number]
== END | disposition home or self-care (01) ==
LOC: OR 07:03
PROVIDERS: ATTEND Specialist
DX: S83.221A Peripheral tear of medial meniscus, current injury, right knee, initial encounter (principal); M17.11 Unilateral primary osteoarthritis, right knee; M67.51 Plica syndrome, right knee; M22.41 Chondromalacia patellae, right knee; E11.9 Type 2 diabetes mellitus without complications; I10 Essential (primary) hypertension; E78.5 Hyperlipidemia, unspecified; R00.1 Bradycardia, unspecified; X58.XXXA Exposure to other specified factors, initial encounter; Z01.810 Encounter for preprocedural cardiovascular examination; Z01.812 Encounter for preprocedural laboratory examination; Z01.818 Encounter for other preprocedural examination; Z79.4 Long term (current) use of insulin; Z68.32 Body mass index [BMI] 32.0-32.9, adult; Z86.73 Personal history of transient ischemic attack (TIA), and cerebral infarction without residual deficits; Z87.891 Personal history of nicotine dependence
CPT/HCPCS: 29881; 36415 ×2; 71046; 80048 ×2; 82948; 85025; 93005; J0690; J1100; J1885; J2001; J2250; J2405; J2704

== ENCOUNTER 2018-09-18 13:54 | Outpatient (RCR) | payer MEDICARE ==
[~2018-09-18 13:54] MED LIST changes: -BUPIVACAINE 0.5%/EPI 30 ML SDV INJ ONE; -CEFAZOLIN SOD 2 GM/D5W 50ML 50 ML IV ONE; -DEXAMETHASONE SOD PHOS INJ 4 MG/ML VIAL ONE; -FENTANYL CITRATE/PF 100MCG/2 ML INJ ONE; -KETOROLAC TROMETHAMINE 30 MG/ML VIAL ONE; -LIDOCAINE HCL 2% LOCAL INJ 5 ML SDV VIAL INJ ONE; -MIDAZOLAM HCL 2 MG/2 ML VIAL ONE; -ONDANSETRON HCL INJ 2 MG/ML VIAL ONE; -PROPOFOL IV EMULSION 10 MG/ML 20 ML VIAL ONE; -SEVOFLURANE INHAL SOLN 250 ML PEN BTL ONE
== END 2018-09-19 ==
LOC: PT 13:54
PROVIDERS: ATTEND Specialist
DX: M25.561 Pain in right knee (principal); M25.661 Stiffness of right knee, not elsewhere classified; M62.81 Muscle weakness (generalized); R26.2 Difficulty in walking, not elsewhere classified

== ENCOUNTER 2018-10-09 13:43 | Outpatient (RCR) | payer MEDICARE | END 2018-10-17 | LOC: PT 13:43 | PROVIDERS: ATTEND Specialist | DX: M25.561 Pain in right knee (principal); M25.661 Stiffness of right knee, not elsewhere classified; M62.81 Muscle weakness (generalized); R26.2 Difficulty in walking, not elsewhere classified ==

== ENCOUNTER → 2019-04-30 | Day surgery (SDC) | payer MEDICARE ==
[2019-04-22 12:57] LABS: BASOPHILS # (AUTO) 0.1 (0.0-0.1); BASOPHILS % 0.7 % (0.0-1.0); EOSINOPHILS # (AUTO) 0.2 (0.0-0.4); EOSINOPHILS % 2.6 % (0.0-6.0); HEMATOCRIT 44.8 % (38.2-49.6); HEMOGLOBIN 14.3 g/dL (14.0-18.0); LYMPHOCYTES # (AUTO) 1.5 (1.0-3.2); LYMPHOCYTES % 20.2 % (18.0-39.1); MEAN CORPUSCULAR HEMOGLOBIN 27.6 pg (28-32); MEAN CORPUSCULAR HGB CONC 31.9 g/dL (31-35); MEAN CORPUSCULAR VOLUME 86.3 fL (81-99); MONOCYTES # (AUTO) 0.8 (0.2-0.8); MONOCYTES % 10.7 % (4.4-11.3); NEUTROPHILS # (AUTO) 4.8 (2.1-6.9); NEUTROPHILS % 65.7 % (38.7-80.0); PLATELET COUNT 298 x10e3/uL (140-360); RED BLOOD COUNT 5.19 x10e6/uL (4.3-5.7); RED CELL DISTRIBUTION WIDTH 13.1 % (11.7-14.4)
[~2019-04-30] MED LIST changes: +FENTANYL CITRATE/PF 100MCG/2 ML INJ ONE; +HYOSCYAMINE 0.125 MG TAB ONE; +MIDAZOLAM HCL 2 MG/2 ML VIAL ONE; +PROPOFOL IV EMULSION 10 MG/ML 50 ML VIAL ONE
--- OUTSIDE RECORDS SUMMARY | 2019-04-30 11:38 | XMS REPORT | Summary of Care ---
Author Author [facility] Address Unknown Phone Unavailable Encounter HQ Brad(FIN) [id number] Date(s): 02/28/19 - 02/28/19 [facility] [address] [place] [address]- [phone] Attending Physician: Jonathan Cornejo MD Referring Physician: Tahir Rosario MD Vital Signs No data available for this section Problem List Condition Effective Dates Status Health Status Informant Acute respiratory 11/19/11 Active failure(Confirmed) Diabetes Active mellitus(Confirmed) Dysphagia(Confirmed) Active hyperlipidemia(Confi Active rmed) Hyperlipidemia(Confi Active rmed) Myasthenia Active gravis(Confirmed) Allergies, Adverse Reactions, Alerts No Known Medication Allergies Medications No data available for this section Results No data available for this section Immunizations No data available for this section Procedures Procedure Date Related Diagnosis Body Site Status Gallbladder excision Completed Spinal fusion Completed Tonsil operation Completed Social History Social History Type Response Alcohol Never Smoking Status Never smoker; Ready to change: No; Concerns about tobacco use in household: No; Exposure to Tobacco Smoke None; Cigarette Smoking Last 365 Days No; Reg Smoking Cessation Counseling No entered on: 01/29/19 Assessment and Plan No data available for this section
--- OUTSIDE RECORDS SUMMARY | 2019-04-30 11:38 | XMS REPORT | Continuity of Care Document ---
Author Author [employer] Organization [employer] Address Unknown Phone Unavailable Care Team Providers Care Septic Tank Service Technician Name Role Phone [employer] Unavailable Unavailable Problems Problem Status Onset Date Classification Date Reported Comments Source VISION CHANGES, UNCONTROLLED HYPERTENSIO Active 01/29/2019 [facility] HEMIANOPSIA, AMBULATORY DYSFUNCTION Active 01/29/2019 [facility] ACUTE CVA Active 01/29/2019 [facility] THOMASON LT EYE VISION ALTERED Active 01/06/2018 [facility] ABILITY TO EAT Active 01/30/2012 [facility] Acute respiratory failure Active 11/19/2011 Problem 02/04/2012 [facility] Acute respiratory failure (disorder) Active 11/19/2011 Problem 03/02/2019 [facility] UNABLE TO SWALLOW Active 11/18/2011 [facility] CERVCAL DYSPHGIA/787.20 Active 09/26/2011 [facility] DYSPHAGIA Active 09/20/2011 [facility] DYSPHAGIA. Active 09/20/2011 [facility] Diabetes mellitus Active Problem 02/04/2012 [facility] Dysphagia Active Problem 02/04/2012 [facility] GERD - Gastro-esophageal reflux disease Active Problem 02/04/2012 [facility] Hyperlipidemia Active Problem 02/04/2012 [facility] Myasthenia gravis Active Problem 02/04/2012 [facility] Swallowing Active Problem 02/04/2012 [facility] Diabetes mellitus (disorder) Active Problem 03/02/2019 [facility] ([facility]order) Active Problem 03/02/2019 [facility] Gastroesophageal reflux disease (disorder) Active Problem 03/02/2019 [facility] [place] [facility] Hyperlipidemia (disorder) Active Problem 03/02/2019 [facility] [place] [facility] Myasthenia gravis (disorder) Active Problem 03/02/2019 [facility] [place] [facility] Unspecified visual disturbance 02/02/2019 [facility] DIABETIC Active Problem 02/04/2014 [facility] HIGH CHOLESTEROL Active Problem 02/04/2014 [facility] MYOSTHENIA GRAVIS Active Problem 02/04/2014 [facility] DYSPHAGIA NOS Active [facility] DYSPHAGIA, ORAL PHASE Active [facility] SCREEN MALIG NEOP-COLON Active [facility] CEREBRAL INFARCTION, UNSPECIFIED Active [facility] UNSPECIFIED VISUAL DISTURBANCE Active [facility] ESSENTIAL (PRIMARY) HYPERTENSION Active [facility] TYPE 2 DIABETES MELLITUS WITH HYPERGLYCE Active [facility] HETERONYMOUS BILATERAL FIELD DEFECTS Active [facility] DIFFICULTY IN WALKING, NOT ELSEWHERE CLA Active [facility] Medications Medication Details Route Status Patient Instructions Ordering Provider Order Date Source atorvastatin 40 mg oral tablet 80 mg=2 tab, PO, Bedtime, # 60 tab, 0 Refill(s), Pharmacy: [facility] [id number] Active 01/31/2019 [facility] Aspirin 81 MG Enteric Coated Tablet 81 mg=1 tab, PO, Q24H, # 30 tab, 0 Refill(s), Pharmacy: [facility] [id number] Active 01/31/2019 [facility] Amlodipine 5 mg, 1 tab, Route: PO, Drug form: TAB, Daily, Dosing Weight 80.994, kg, Start date: 01/31/19 9:30:00 CDT, Duration: 30 day, Stop date: 03/02/19 9:00:00 CDTNotes: (Same as: Norvasc) Inactive 01/31/2019 [facility] Vitamin D3 1000 intl units oral tablet 1,000 IntlUnit, 1 tab, Route: PO, Drug form: TAB, Daily, Dosing Weight 80.994, kg, Start date: 01/31/19 9:00:00 CDT, Duration: 30 day, Stop date: 03/01/19 9:00:00 CDTNotes: Same as : Vitamin D3 Inactive 01/31/2019 [facility] Pyridostigmine 60 mg, 1 tab, Route: PO, Drug form: TAB, TID, Dosing Weight 80.994, kg, Start date: 01/31/19 9:00:00 CDT, Duration: 30 day, Stop date: 03/01/19 17:00:00 CDTNotes: (Same as: Mestinon) Inactive 01/31/2019 [facility] mycophenolate mofetil 500 mg, 1 tab, Route: PO, Drug form: TAB, BID, Dosing Weight 80.994, kg, Start date: 01/31/19 9:00:00 CDT, Duration: 30 day, Stop date: 03/01/19 17:00:00 CDTNotes: SEPARATE ANTACIDS from [employer] by 2 hrs. (Same As: CellCept) Inactive 01/31/2019 [facility] Humalog 15 unit, 0.15 mL, Route: SUB-Q, Drug form: SOLN, TID, Dosing Weight 80.994, kg, Start date: 01/31/19 9:00:00 CDT, Duration: 30 day, Stop date: 03/01/19 17:00:00 CDTNotes: (Same as: Humalog) Roll in palms of hands gently; Do not shake vigorously. WASTE: F/P - Black; E - Municipal Trash Bin Stable for 28 days at room temperature. Expires in days from Date Inactive 01/31/2019 [facility] insulin glargine 55 unit, 0.55 mL, Route: SUB-Q, Drug form: SOLN, Bedtime, Start date: 01/30/19 21:00:00 CDT, Duration: 30 day, Stop date: 02/28/19 21:00:00 CDTNotes: (Same as: Lantus) Do not hold insulin without contac ting prescriber WASTE: F/P - Black; E - Municipal Trash Bin "single patient use only" Stable for 28 days at room temperature Expires in days from Date No Longer Active 01/31/2019 [facility] Levemir Route: SUB-Q, Bedtime, Dosing Weight 80.994, kg, Start date: 01/30/19 21:00:00 CDT, Duration: 30 day, Stop date: 02/28/19 21:00:00 CDT Inactive 01/31/2019 [facility] atorvastatin 80 mg, 2 tab, Route: PO, Drug form: TAB, Bedtime, Dosing Weight 86.364, kg, Start date: 01/30/19 21:00:00 CDT, Duration: 30 day, Stop date: 02/28/19 21:00:00 CDTNotes: (Same as: Lipitor) No Longer Active 01/31/2019 [facility] Saline Flush 0.9% 10 ml, Route: IVP, Drug Form: INJ, Dosing Weight 86.364, kg, Q12H, Start date: 01/30/19 9:00:00 CDT, Duration: 30 day, Stop date: 02/28/19 21:00:00 CDTNotes: Same as: BD Posiflush Sterile No Longer Active 01/30/2019 [facility] Enoxaparin 40 mg, 0.4 mL, Route: SUB-Q, Drug form: INJ, [id number], Dosing Weight 86.364, kg, Start date: 01/29/19 22:00:00 CDT, Stop date: 02/27/19 22:00:00 CDTNotes: (Same as: Lovenox) No Longer Active 01/30/2019 [facility] Famotidine 20 mg, 1 tab, Route: PO, Drug form: TAB, Q24H, Dosing Weight 86.364, kg, Start date: 01/29/19 22:00:00 CDT, Duration: 30 day, Stop date: 02/27/19 22:00:00 CDTNotes: (Same as: Pepcid) No Longer Active 01/30/2019 [facility] Aspirin 81 MG Enteric Coated Tablet 81 mg, 1 tab, Route: PO, Drug form: ECTAB, Q24H, Dosing Weight 86.364, kg, Start date: 01/29/19 22:00:00 CDT, Duration: 30 day, Stop date: 02/27/19 22:00:00 CDTNotes: Do not crush or chew. (Same As: Ecotrin) No Longer Active 01/30/2019 [facility] Dextrose 50% Syringe 12.5 gm, 25 mL, Route: IVP, Drug Form: INJ, Dosing Weight 86.364, kg, PRN, PRN Blood Glucose Results, Start date: 01/29/19 21:45:00 CDT, Duration: 30 day, Stop date: 02/28/19 21:44:00 CDT No Longer Active 01/30/2019 [facility] Glucagon 1 mg, Route: IM, Drug form: PDR/INJ, PRN, Dosing Weight 86.364, kg, PRN Blood Glucose Results, Start date: 01/29/19 21:45:00 CDT, Duration: 30 day, Stop date: 02/28/19 21:44:00 CDT No Longer Active 01/30/2019 [facility] Insulin Lispro 8 unit, 0.08 mL, Route: SUB-Q, Drug form: SOLN, Bedtime, Dosing Weight 86.364, kg, PRN Blood Glucose Results, Start date: 01/29/19 21:45:00 CDT, Duration: 30 day, Stop date: 02/28/19 21:44:00 CDTNotes: (Same as: Humalog) Roll in palms of hands gently; Do not shake vigorously. WASTE: F/P - Black; E - Municipal Trash Bin Stable for 28 days at room temperature. Expires in days from Date No Longer Active 01/30/2019 [facility] Saline Flush 0.9% 10 ml, Route: IVP, Drug Form: INJ, Dosing Weight 86.364, kg, PRN, PRN Line Flush, Start date: 01/29/19 21:44:00 CDT, Duration: 30 day, Stop date: 02/28/19 21:43:00 CDTNotes: Same as: BD Posiflush Sterile No Longer Active 01/30/2019 [facility] enalapril 0.625 mg, 0.5 mL, Route: IVP, Drug form: INJ, Q6H, Dosing Weight 86.364, kg, PRN Hypertension, Start date: 01/29/19 21:44:00 CDT, Duration: 30 day, Stop date: 02/28/19 21:43:00 CDTNotes: (Same as: Vasotec- IV) No Longer Active 01/30/2019 [facility] Labetalol 10 mg, 2 mL, Route: IVP, Drug form: INJ, Q10Min, Dosing Weight 86.364, kg, PRN Hypertension, For SBP > 180 mmHg and/or DBP > 105 mmHg, Start date: 01/29/19 21:44:00 CDT, Duration: 30 day, Stop date: 02/28/19 21:43:00 CDTNotes: (Same as: Normodyne, Trandate) Push over 2 minutes Give bolus over 2-3 minutes. No Longer Active 01/30/2019 [facility] Acetaminophen 650 mg, 2 tab, Route: PO, Drug form: TAB, Q6H, Dosing Weight 86.364, kg, PRN Pain 1-3/Temp > 99.5 F, Start date: 01/29/19 21:44:00 CDT, Duration: 30 day, Stop date: 02/28/19 21:43:00 CDTNotes: Do not exceed 4 gm/day. (Same as: Tylenol) No Longer Active 01/30/2019 [facility] Ondansetron 4 mg, 2 mL, Route: IVP, Drug form: INJ, Q8H, Dosing Weight 86.364, kg, PRN Nausea & Vomiting, Start date: 01/29/19 21:44:00 CDT, Duration: 30 day, Stop date: 02/28/19 21:43:00 CDTNotes: (Same as: Arminda) MEDICATION WASTE Product Size: 4 mg Product Wasted: ___ mg No Longer Active 01/30/2019 [facility] Omnipaque 350 injectable solution 100 mL, Route: IVP, Drug Form: SOLN, Dosing Weight 86.364, kg, ONCALL, For CTA exam with GFR > 45 mL/min, STAT, Start date: 01/29/19 19:50:00 CDT, Duration: 1 doses or timesNotes: (Same as:Omnipaque 350) WASTE: F/P - Black; E - Municipal Trash Bin Inactive 01/30/2019 [facility] Saline Flush 0.9% 10 mL, Route: IVP, Drug Form: INJ, Dosing Weight 86.364, kg, PRN, PRN Line Flush, Start date: 01/29/19 19:13:00 CDT, Duration: 30 day, Stop date: 02/28/19 19:12:00 CDTNotes: Same as: BD Posiflush Sterile No Longer Active 01/30/2019 [facility] insulin glargine 55 unit, 0.55 mL, Route: SUB-Q, Drug form: SOLN, Bedtime, Start date: 01/08/18 21:00:00 CDT, Duration: 30 day, Stop date: 02/06/18 21:00:00 CDTNotes: (Same as: Lantus) Do not hold insulin without contac ting prescriber WASTE: F/P - Black; E - Municipal Trash Bin "single patient use only" Inactive 01/09/2018 [facility] Levemir Route: SUB-Q, Bedtime, Dosing Weight 94.261, kg, Start date: 01/08/18 21:00:00 CDT, Duration: 30 day, Stop date: 02/06/18 21:00:00 CDT Inactive 01/09/2018 [facility] atorvastatin 40 mg, 1 tab, Route: PO, Drug form: TAB, Bedtime, Dosing Weight 94.261, kg, Start date: 01/08/18 21:00:00 CDT, Duration: 30 day, Stop date: 02/06/18 21:00:00 CDTNotes: (Same as: Lipitor) Inactive 01/09/2018 [facility] Glucotrol 10 mg, 1 tab, Route: PO, Drug form: TAB, BID, Start date: 01/08/18 17:00:00 CDT, Duration: 30 day, Stop date: 02/07/18 9:00:00 CDTNotes: (Same as: Glucotrol) 30 min before meals. Inactive 01/08/2018 [facility] glimepiride 4 mg, Route: PO, Drug form: TAB, BID, Dosing Weight 94.261, kg, Start date: 01/08/18 17:00:00 CDT, Duration: 30 day, Stop date: 02/07/18 9:00:00 CDT Inactive 01/08/2018 [facility] Amlodipine 5 mg, 1 tab, Route: PO, Drug form: TAB, Daily, Dosing Weight 94.261, kg, Start date: 01/08/18 12:00:00 CDT, Duration: 30 day, Stop date: 02/07/18 9:00:00 CDTNotes: (Same as: Norvasc) Inactive 01/08/2018 [facility] mycophenolate mofetil 500 mg, 2 cap, Route: PO, Drug form: CAP, Q12H, Dosing Weight 94.261, kg, Start date: 01/08/18 12:00:00 CDT, Duration: 30 day, Stop date: 02/07/18 9:00:00 CDTNotes: SEPARATE ANTACIDS from [employer] by 2 hrs. (Same As: CellCept) Inactive 01/08/2018 [facility] Vitamin D3 1000 intl units oral tablet 1,000 IntlUnit, 1 tab, Route: PO, Drug form: TAB, Daily, Dosing Weight 94.261, kg, Start date: 01/08/18 12:00:00 CDT, Duration: 30 day, Stop date: 02/07/18 9:00:00 CDTNotes: Same as : Vitamin D3 Inactive 01/08/2018 [facility] Aspirin 325 mg, 1 tab, Route: PO, Drug form: ECTAB, Daily, Dosing Weight 94.261, kg, Start date: 01/08/18 12:00:00 CDT, Duration: 30 day, Stop date: 02/07/18 9:00:00 CDTNotes: (Do Not Crush) Do not crush or chew. Inactive 01/08/2018 [facility] Aspirin 325 MG Enteric Coated Tablet 325 mg, PO, Daily, # 100 tab, 0 Refill(s), Pharmacy: [place] [id number] Active 01/08/2018 [facility] Insulin Lispro 8 unit, 0.08 mL, Route: [...] Expires in days from Date Inactive 01/08/2018 [facility] Dextrose 50% Syringe 12.5 gm, 25 mL, Route: IVP, Drug Form: INJ, Dosing Weight 94.261, kg, PRN, PRN Blood Glucose Results, Start date: 01/08/18 9:52:00 CDT, Duration: 30 day, Stop date: 02/07/18 9:51:00 CDT Inactive 01/08/2018 [facility] Glucagon 1 mg, Route: IM, Drug form: PDR/INJ, PRN, Dosing Weight 94.261, kg, PRN Blood Glucose Results, Start date: 01/08/18 9:52:00 CDT, Duration: 30 day, Stop date: 02/07/18 9:51:00 CDT Inactive 01/08/2018 [facility] Aspirin 81 MG Enteric Coated Tablet 325 mg, 1 tab, Route: PO, Drug form: ECTAB, Q24H, Dosing Weight 94.591, kg, Start date: 01/07/18 17:00:00 CDT, Duration: 30 day, Stop date: 02/05/18 17:00:00 CDTNotes: (Do Not Crush) Do not crush or chew. No Longer Active 01/07/2018 [facility] mycophenolate mofetil 500 mg oral tablet 500 mg=1 tab, PO, BID, 0 Refill(s) Active 01/07/2018 [facility] Vitamin D3 1000 intl units oral capsule 1,000 IntlUnit=1 cap, PO, Daily, # 100 cap, 0 Refill(s) Active 01/07/2018 [facility] Humalog 15 unit, SUB-Q, TID, 0 Refill(s) Active 01/07/2018 [facility] Levemir 55 units, SUB-Q, Bedtime, 0 Refill(s) Active 01/07/2018 [facility] Amlodipine 5 mg, PO, Daily, 0 Refill(s) Active 01/07/2018 [facility] glimepiride 4 mg oral tablet 4 mg=1 tab, PO, BID, 0 Refill(s) Active 01/07/2018 [facility] atorvastatin 40 mg oral tablet 40 mg=1 tab, PO, Bedtime, # 30 tab, 0 Refill(s) Active 01/07/2018 [facility] Acetaminophen 325 MG Oral Tablet 325 mg, 1 tab, Route: PO, Drug form: TAB, Q6H, Dosing Weight 94.261, kg, PRN Pain Score 1-3, Start date: 01/06/18 22:56:00 CDT, Duration: 30 day, Stop date: 02/05/18 22:55:00 CDTNotes: Do not exceed 4 gm/day. (Same as: Tylenol) No Longer Active 01/07/2018 [facility] Saline Flush 0.9% 10 ml, Route: IVP, Drug Form: INJ, Dosing Weight 94.591, kg, Q12H, Start date: 01/06/18 21:00:00 CDT, Duration: 30 day, Stop date: 02/05/18 9:00:00 CDTNotes: (Same as: BD Posiflush) No Longer Active 01/07/2018 [facility] Famotidine 20 mg, 1 tab, Route: PO, Drug form: TAB, Q12H, Dosing Weight 94.591, kg, Start date: 01/06/18 21:00:00 CDT, Duration: 30 day, Stop date: 02/05/18 9:00:00 CDTNotes: (Same as: Pepcid) No Longer Active 01/07/2018 [facility] atorvastatin 80 mg, 2 tab, Route: PO, Drug form: TAB, Bedtime, Dosing Weight 94.591, kg, Start date: 01/06/18 21:00:00 CDT, Duration: 30 day, Stop date: 02/04/18 21:00:00 CDTNotes: (Same as: Lipitor) No Longer Active 01/07/2018 [facility] Enoxaparin 40 mg, 0.4 mL, Route: SUB-Q, Drug form: INJ, [id number], Dosing Weight 94.591, kg, Start date: 01/06/18 17:00:00 CDT, Duration: 30 day, Stop date: 02/04/18 17:00:00 CDTNotes: (Same as: Lovenox) No Longer Active 01/06/2018 [facility] Aspirin 81 MG Enteric Coated Tablet 81 mg, 1 tab, Route: PO, Drug form: ECTAB, Q24H, Dosing Weight 94.591, kg, Start date: 01/06/18 16:56:00 CDT, Duration: 30 day, Stop date: 02/04/18 16:56:00 CDTNotes: Do not crush or chew. (Same As: Ecotrin) No Longer Active 01/06/2018 [facility] Saline Flush 0.9% 10 ml, Route: IVP, Drug Form: INJ, Dosing Weight 94.591, kg, PRN, PRN Line Flush, Start date: 01/06/18 16:46:00 CDT, Duration: 30 day, Stop date: 02/05/18 16:45:00 CDTNotes: (Same as: BD Posiflush) No Longer Active 01/06/2018 [facility] Ondansetron 4 mg, 2 mL, Route: IVP, Drug form: INJ, Q8H, Dosing Weight 94.591, kg, PRN Nausea & Vomiting, Start date: 01/06/18 16:46:00 CDT, Duration: 30 day, Stop date: 02/05/18 16:45:00 CDTNotes: (Same as: Zofran) MEDICATION WASTE Product Size: 4 mg Product Wasted: ___ mg No Longer Active 01/06/2018 [facility] Aspirin 324 mg, 4 tab, Route: CHEW, Drug form: CHEWTAB, ONCE, Dosing Weight 94.591, kg, Priority: STAT, Start date: 01/06/18 15:55:00 CDT, Stop date: 01/06/18 15:55:00 CDTNotes: Take with food. Inactive 01/06/2018 [facility] Saline Flush 0.9% 10 mL, Route: IVP, Drug Form: INJ, Dosing Weight 77.727, kg, PRN, PRN Line Flush, Start date: 01/06/18 14:35:00 CDT, Duration: 30 day, Stop date: 02/05/18 14:34:00 CDTNotes: (Same as: BD Posiflush) No Longer Active 01/06/2018 [facility] VANO Ophth Combo 1 drops, Soln, Eye-Operative, q5min, order duration: 3 doses, first dose 02/02/14 7:35:00 CDT, stop date 02/02/14 7:49:00 CDTVigamox 0.5%: 0.0375 mL Alphagan 0.1%: 0.0375 mL Nevanac 0.1%: 0.0375 mL Omni pred 1%: 0.0375 mL Total Volume: 0.15 mL *Post Op Compound from [facility]* Inactive Bryce 02/02/2014 [facility] fentaNYL 50 mcg=1 mL, Injection, IV Push, q5min PRN for Pain Mild (1-3), order duration: 2 doses, first dose 02/02/14 7:30:00 CDT, stop date Limited # of times Inactive Tyree 02/02/2014 [facility] Demerol HCl 12.5 mg=0.5 mL, Injection, IV Push, q5min PRN for shivers, order duration: 4 doses, first dose 02/02/14 7:30:00 CDT, stop date Limited # of times Inactive Tyree 02/02/2014 [facility] morphine 2 mg, IV Push, q5min PRN for pain severe (7-10), order duration: 5 doses, first dose 02/02/14 7:30:00 CDT, stop date Limited # of times Inactive Tyree 02/02/2014 [facility] ondansetron 4 mg=2 mL, Injection, IV Push, q30min PRN for nausea/vomiting, order duration: 2 doses, first dose 02/02/14 7:30:00 CDT, stop date Limited # of times Inactive Tyree 02/02/2014 [facility] Misc Medication 400 mL, Soln-IV, IV, Once, first dose 02/02/14 7:28:00 CDT, stop date 02/02/14 7:28:00 CDT Inactive Sydnie 02/02/2014 [facility] fentaNYL 50 mcg=1 mL, Injection, IV, Once, first dose 02/02/14 7:20:00 CDT, stop date 02/02/14 7:20:00 CDT Inactive Sydnie 02/02/2014 [facility] midazolam 1 mg=1 mL, Injection, IV, Once, first dose 02/02/14 7:16:00 CDT, stop date 02/02/14 7:16:00 CDT Inactive Sydnie 02/02/2014 [facility] midazolam 1 mg=1 mL, Injection, IV, Once, first dose 02/02/14 7:08:00 CDT, stop date 02/02/14 7:08:00 CDT Inactive Sydnie 02/02/2014 [facility] fentaNYL 50 mcg=1 mL, Injection, IV, Once, first dose 02/02/14 7:08:00 CDT, stop date 02/02/14 7:08:00 CDT Inactive Sydnie 02/02/2014 [facility] ondansetron 4 mg=2 mL, Injection, IV, Once, first dose 02/02/14 7:07:00 CDT, stop date 02/02/14 7:07:00 CDT Inactive Sydnie 02/02/2014 [facility] tetracaine 0.5% ophthalmic solution 1 drops, Soln, Eye- Operative, Once, first dose 02/02/14 7:00:00 CDT, stop date 02/02/14 7:00:00 CDTCompounded from [facility] Inactive Bryce 02/02/2014 [facility] lidocaine 1% injectable solution 5 mg=0.5 mL, Injection, Subcutaneous, Once, first dose 02/02/14 7:00:00 CDT, stop date 02/02/14 7:00:00 CDT Inactive Tyree 02/02/2014 [facility] mydriatic #4 ophth combo 1 drops, Soln, Eye-Operative, q5min, order duration: 3 doses, first dose 02/02/14 6:20:00 CDT, stop date 02/02/14 6:34:00 CDTPhenylephrine 2.5%: 0.1mL Tropicamide 1%: 0.1mL Gatifloxacin 0.3%: 0.1mL Total Volume: 0.3 mL Inactive Bryce 02/02/2014 [facility] LR 500 mL 500 mL, IV, 100 mL/hr, start date 02/02/14 6:19:00 CDT, Adult Eye Procedures or Pain Inactive Tyree 02/02/2014 [facility] sodium polystyrene sulfonate 15 gm, Oral, Daily, 0 Refill(s) Active 01/31/2014 [facility] VANO Ophth Combo 1 drops, Soln, Eye-Operative, q5min, order duration: 3 doses, first dose 01/05/14 8:55:00 CDT, stop date 01/05/14 9:09:00 CDTVigamox 0.5%: 0.0375 mL Alphagan 0.1%: 0.0375 mL Nevanac 0.1%: 0.0375 mL Omni pred 1%: 0.0375 mL Total Volume: 0.15 mL *Post Op Compound from [facility]* Inactive Bryce 01/05/2014 [facility] Misc Medication 250 mL, Soln-IV, IV, Once, first dose 01/05/14 8:52:00 CDT, stop date 01/05/14 8:52:00 CDT Inactive Denise 01/05/2014 [facility] midazolam 2 mg=2 mL, Injection, IV, Once, first dose 01/05/14 8:23:00 CDT, stop date 01/05/14 8:23:00 CDT Inactive Denise 01/05/2014 [facility] midazolam 1 mg=1 mL, Injection, IV, Once, first dose 01/05/14 8:16:00 CDT, stop date 01/05/14 8:16:00 CDT Inactive Denise 01/05/2014 [facility] fentaNYL 50 mcg=1 mL, Injection, IV, Once, first dose 01/05/14 8:16:00 CDT, stop date 01/05/14 8:16:00 CDT Inactive Denise 01/05/2014 [facility] tetracaine 0.5% ophthalmic solution 1 drops, Soln, Eye- Operative, Once, first dose 01/05/14 8:00:00 CDT, stop date 01/05/14 8:00:00 CDTCompounded from [facility] Inactive Bryce 01/05/2014 [facility] LR 500 mL 500 mL, IV, 100 mL/hr, start date 01/05/14 7:41:00 CDT, Adult Eye Procedures or Pain Inactive Jeremy 01/05/2014 [facility] mydriatic #4 ophth combo 1 drops, Soln, Eye-Operative, q5min, order duration: 3 doses, first dose 01/05/14 7:40:00 CDT, stop date 01/05/14 7:54:00 CDTPhenylephrine 2.5%: 0.1mL Tropicamide 1%: 0.1mL Gatifloxacin 0.3%: 0.1mL Total Volume: 0.3 mL Inactive Bryce 01/05/2014 [facility] fenofibrate 145 mg oral tablet 145 mg=1 tabs, Oral, Daily, # 30 tabs, 0 Refill(s) Active 01/04/2014 [facility] glyBURIDE Oral, Daily, 0 Refill(s) Active 01/04/2014 [facility] mycophenolate mofetil 500 mg oral tablet mg tabs, Oral, BID, 0 Refill(s) Active 01/04/2014 [facility] lovastatin 40 mg oral tablet 40 mg=1 tabs, Oral, Daily, # 30 tabs, 0 Refill(s) Active 01/04/2014 [facility] metFORMIN 500 mg oral tablet mg tabs, Oral, BID, 0 Refill(s) Active 01/04/2014 [facility] Lactated Ringers Injection IV 1,000 mL 1,000 mL, Rate: 75 ml/hr, Infuse over: 13.3 hr, Route: IV, Dosing Weight 77.727 kg, Total Volume: 1,000, Start date: 02/02/12 11:00:00, Duration: 30 day, Stop date: 03/03/12 10:59:00 IV No Longer Active Bertram 02/02/2012 [facility] predniSONE 40 mg, 2 tab, Route: PO, Drug form: TAB, Daily, Start date: 12/06/11 9:00:00, Duration: 30 day, Stop date: 01/04/12 9:00:00 PO No Longer Active Larry 12/06/2011 [facility] Levemir FlexPen 10 unit, 0.1 mL, Route: SUB-Q, Drug form: INJ, Bedtime, Start date: 12/04/11 21:00:00, Duration: 30 day, Stop date: 01/02/12 21:00:00 SUB-Q No Longer Active Michael 12/05/2011 [facility] methylPREDNISolone 50 mg, 0.8 mL, Route: IV, Drug form: INJ, Q24H, Start date: 12/04/11 16:00:00, Duration: 30 day, Stop date: 01/02/12 16:00:00 IV No Longer Active Larry 12/04/2011 [facility] methylPREDNISolone 100 mg, 1.6 mL, Route: IV, Drug form: INJ, Q24H, Start date: 12/03/11 21:00:00, Duration: 30 day, Stop date: 01/01/12 21:00:00 IV No Longer Active Larry 12/04/2011 [facility] CellCept 500 mg, 2.5 mL, Route: PEG, Drug form: SOLN, Q12H- 06, Start date: 12/02/11 18:00:00, Duration: 30 day, Stop date: 01/01/12 6:00:00 PEG No Longer Active Larry 12/02/2011 [facility] methylPREDNISolone 250 mg, Route: IV, Drug form: INJ, Q24H, Start date: 12/02/11 17:00:00, Duration: 30 day, Stop date: 12/31/11 17:00:00 IV No Longer Active Larry 12/02/2011 [facility] Mestinon 30 mg, 0.5 tab, Route: PEG, Drug form: TAB, Q8H- 01, Start date: 12/01/11 21:00:00, Stop date: 12/31/11 9:00:00 PEG No Longer Active Larry 12/02/2011 [facility] meperidine 50 mg, 1 mL, Route: IV, Drug form: INJ, Q4H, PRN Other -See Comment, Start date: 12/01/11 16:15:00, Duration: 4 day, Stop date: 12/05/11 16:14:00 IV No Longer Active Larry 12/01/2011 [facility] Lactated Ringers Injection IV 1,000 mL 1,000 mL, Rate: TITRATE PER MD, Route: IV, Dosing Weight 73.007 kg, Total Volume: 1,000, Start date: 12/01/11 13:14:00, Duration: 6 hr, Stop date: 12/01/11 19:13:00 IV No Longer Active Bertram 12/01/2011 [facility] methylPREDNISolone 800 mg, Route: IV, Drug form: INJ, QPM, Start date: 11/30/11 17:00:00, Duration: 30 day, Stop date: 12/29/11 17:00:00 IV No Longer Active Larry 11/30/2011 [facility] glucagon 1 mg, Route: SUB-Q, Drug form: PDR/INJ, Sliding Scale, PRN Blood Glucose Results, Start date: 11/29/11 19:32:00, Duration: 30 day, Stop date: 12/29/11 19:31:00 SUB-Q No Longer Active Larry 11/30/2011 [facility] Dextrose 50% in Water IV 50 mL, Route: IVP, Start date: 11/29/11 19:32:00, Duration: 30 day, Stop date: 12/29/11 19:31:00, PRN Blood Glucose Results IVP No Longer Active Larry 11/30/2011 [facility] Dextrose 50% in Water IV 25 mL, Route: IVP, Start date: 11/29/11 19:31:00, Duration: 30 day, Stop date: 12/29/11 19:30:00, PRN Blood Glucose Results IVP No Longer Active Larry 11/30/2011 [facility] NovoLog FlexPen 14 unit, 0.14 mL, Route: SUB-Q, Drug form: SOLN, Sliding Scale, PRN Blood Glucose Results, Start date: 11/29/11 19:31:00, Duration: 30 day, Stop date: 12/29/11 19:30:00 SUB-Q No Longer Active Larry 11/30/2011 [facility] Sodium Chloride 0.9% IV 1,000 mL 1,000 mL, Rate: 40 ml/hr, Infuse over: 25 hr, Route: IV, Dosing Weight 73.007 kg, Total Volume: 1,000, Start date: 11/27/11 15:22:00, Stop date: 12/27/11 15:21:00 IV No Longer Active Michael 11/27/2011 [facility] lactulose 20 gm, 30 mL, Route: PO, Drug form: SYRP, ONCE, Start date: 11/26/11 12:30:00, Stop date: 11/26/11 12:30:00 PO No Longer Active [email or web address] 11/26/2011 [facility] docusate sodium 150 mg/15 mL oral liquid 100 mg, 10 mL, Route: NG, Drug form: LIQ, BID, Start date: 11/26/11 12:00:00, Duration: 30 day, Stop date: 12/26/11 9:00:00 NG No Longer Active [facility] [[email or web address] 11/26/2011 [facility] lactulose 20 gm, 30 mL, Route: PO, Drug form: SYRP, Q12H, PRN Constipation, Start date: 11/26/11 11:39:00, Duration: 30 day, Stop date: 12/26/11 11:38:00 PO No Longer Active Larry 11/26/2011 [facility] Insulin regular 100 unit + Sodium Chloride 0.9% IV 99 mL 99 mL, Rate: follow MICU/IMCU insulin drip Protocol, Route: IV, Dosing Weight 73.007 kg, Total Volume: 100, Start date: 11/26/11 7:26:00, Duration: 30 day, Stop date: 12/26/11 7:25:00 IV No Longer Active Larry 11/26/2011 [facility] methylPREDNISolone 1,000 mg, Route: IV, Drug form: INJ, Q24H, Start date: 11/25/11 16:00:00, Duration: 30 day, Stop date: 12/24/11 16:00:00 IV No Longer Active Larry 11/25/2011 [facility] NovoLog FlexPen 17 unit, 0.17 mL, Route: SUB-Q, Drug form: SOLN, Sliding Scale, PRN Blood Glucose Results, Start date: 11/25/11 15:31:00, Duration: 30 day, Stop date: 12/25/11 15:30:00 SUB-Q No Longer Active Larry 11/25/2011 [facility] NovoLog FlexPen 7 unit, 0.07 mL, Route: SUB-Q, Drug form: SOLN, Sliding Scale, PRN Blood Glucose Results, Start date: 11/25/11 15:30:00, Duration: 30 day, Stop date: 12/25/11 15:29:00 SUB-Q No Longer Active Larry 11/25/2011 [facility] Mestinon 60 mg, 1 tab, Route: NG, Drug form: TAB, Q12H, Start date: 11/24/11 15:00:00, Duration: 30 day, Stop date: 12/24/11 9:00:00 NG No Longer Active Larry 11/24/2011 [facility] methylPREDNISolone 1,000 mg, Route: IV, Drug form: INJ, ONCE, Start date: 11/24/11 15:00:00, Stop date: 11/24/11 15:00:00 IV No Longer Active Larry 11/24/2011 [facility] Lovenox 40 mg, 0.4 mL, Route: SUB-Q, Drug form: INJ, [id number], Start date: 11/24/11 14:00:00, Duration: 30 day, Stop date: 12/23/11 14:00:00 SUB-Q No Longer Active Larry 11/24/2011 [facility] DuoNeb inhalation solution 3 mL, Route: NEB, Drug Form: SOLN, RQ6H, Start date: 11/24/11 14:00:00, Duration: 30 day, Stop date: 12/24/11 8:00:00 NEB No Longer Active Larry 11/24/2011 [facility] acetylcysteine 600 mg, 3 mL, Route: NEB, Drug Form: SOLN, RQ6H, Start date: 11/23/11 20:00:00, Duration: 30 day, Stop date: 12/23/11 14:00:00 NEB No Longer Active Larry 11/24/2011 [facility] methylPREDNISolone 125 mg, 2 mL, Route: IV, Drug form: INJ, ONCE, Start date: 11/23/11 19:00:00, Stop date: 11/23/11 19:00:00 IV No Longer Active Larry 11/24/2011 [facility] potassium chloride 40 mEq, 30 mL, Route: PO, Drug form: LIQ, ONCE, Start date: 11/23/11 11:00:00, Stop date: 11/23/11 11:00:00 PO No Longer Active Larry 11/23/2011 [facility] lactulose 20 gm, 30 mL, Route: PO, Drug form: SYRP, ONCE, Start date: 11/22/11 18:00:00, Stop date: 11/22/11 18:00:00 PO No Longer Active Larry 11/22/2011 [facility] lactulose 20 gm, 30 mL, Route: PO, Drug form: SYRP, Bedtime, PRN Constipation, Start date: 11/22/11 16:55:00, Stop date: 11/22/11 23:59:00 PO No Longer Active Larry 11/22/2011 [facility] midazolam 50 mg IV, Start date: 11/20/11 18:47:00, Duration: 30, 50 ml IV No Longer Active Larry 11/20/2011 [facility] Protonix 40 mg, Route: IVP, Drug form: INJ, Before Dinner, Start date: 11/20/11 16:30:00, Duration: 30 day, Stop date: 12/19/11 16:30:00 IVP No Longer Active Larry 11/20/2011 [facility] Sodium Chloride 0.45% IV 1,000 mL 1,000 mL, Rate: 40 ml/hr, Infuse over: 25 hr, Route: IV, Dosing Weight 73 kg, Total Volume: 1,000, Start date: 11/20/11 12:58:00, Stop date: 12/20/11 12:57:00 IV No Longer Active Larry 11/20/2011 [facility] albuterol 2.5 mg, 0.5 mL, Route: INHALATION, Drug form: SOLN, RQ6H, Start date: 11/19/11 20:00:00, Duration: 30 day, Stop date: 12/19/11 14:00:00 INHALATION No Longer Active Larry 11/20/2011 [facility] sodium chloride 0.9% Inhalation 3 mL, Route: INHALATION, Drug Form: MISC, RQ6H, Start date: 11/19/11 20:00:00, Duration: 30 day, Stop date: 12/19/11 14:00:00 INHALATION No Longer Active Larry 11/20/2011 [facility] Merrem 500 mg, Route: IVPB, ABXQ6H, Start date: 11/19/11 18:00:00, Duration: 30 day, Stop date: 12/19/11 16:00:00 IVPB No Longer Active Larry 11/19/2011 [facility] succinylcholine 100 mg, 5 mL, Route: IV, Drug form: INJ, ONCE, Start date: 11/19/11 18:00:00, Stop date: 11/19/11 18:00:00 IV No Longer Active Larry 11/19/2011 [facility] midazolam 2 mg, 2 mL, Route: IV, Drug form: INJ, ONCE, Start date: 11/19/11 18:00:00, Stop date: 11/19/11 18:00:00 IV No Longer Active Larry 11/19/2011 [facility] Privigen 30 gm, 300 mL, Route: IVPB, Drug form: SOLN, QPM, Start date: 11/19/11 18:00:00, Duration: 5 doses or times, Stop date: 11/23/11 17:00:00 IVPB No Longer Active Larry 11/19/2011 [facility] propofol 10 mg/ml (titrate) 1,000 mg IV, Start date: 11/19/11 17:34:00, Duration: 30, 100 ml IV No Longer Active Larry 11/19/2011 [facility] Protonix 40 mg, Route: IV, Drug form: INJ, Q12H, Start date: 11/19/11 12:00:00, Duration: 30 day, Stop date: 12/19/11 9:00:00 IV No Longer Active Bertram 11/19/2011 [facility] pneumococcal 23-valent vaccine 0.5 ml, Route: IM, Drug Form: INJ, Start date: 11/19/11 9:00:00, Stop date: 11/19/11 9:00:00 IM No Longer Active SYSTEM 11/19/2011 [facility] influenza virus vaccine, inactivated 0.5 mL, Route: IM, Drug Form: INJ, Start date: 11/19/11 9:00:00, Stop date: 11/19/11 9:00:00 IM No Longer Active SYSTEM 11/19/2011 [facility] glucagon 1 mg, Route: SUB-Q, Drug form: PDR/INJ, Sliding Scale, PRN Blood Glucose Results, Start date: 11/18/11 20:43:00, Duration: 30 day, Stop date: 12/18/11 20:42:00 SUB-Q No Longer Active [facility] [[email or web address]] 11/19/2011 [facility] Dextrose 50% in Water IV 50 mL, Route: IVP, Start date: 11/18/11 20:43:00, Duration: 30 day, Stop date: 12/18/11 20:42:00, PRN Blood Glucose Results IVP No Longer Active [facility] [[email or web address]] 11/19/2011 [facility] NovoLog FlexPen 15 unit, 0.15 mL, Route: SUB-Q, Drug form: SOLN, Sliding Scale, PRN Blood Glucose Results, Start date: 11/18/11 20:43:00, Duration: 30 day, Stop date: 12/18/11 20:42:00 SUB-Q No Longer Active [facility] [[email or web address]] 11/19/2011 [facility] NovoLog FlexPen 11 unit, 0.11 mL, Route: SUB-Q, Drug form: SOLN, Sliding Scale, PRN Blood Glucose Results, Start date: 11/18/11 20:42:00, Duration: 30 day, Stop date: 12/18/11 20:41:00 SUB-Q No Longer Active [facility] [email or web address]] 11/19/2011 [facility] Sodium Chloride 0.9% IV 1,000 mL 1,000 mL, Rate: 100 ml/hr, Infuse over: 10 hr, Route: IV, kg, Total Volume: 1,000, Start date: 11/18/11 20:42:00, Duration: 30 day, Stop date: 12/19/11 14:08:00 IV No Longer Active Larry 11/19/2011 [facility] BD Normal Saline Flush 10 mL, Route: IV, Drug Form: INJ, PRN, PRN Line Flush, Start date: 11/18/11 20:41:00, Duration: 30 day, Stop date: 12/18/11 20:40:00 IV No Longer Active Larry 11/19/2011 [facility] Saline Flush 0.9% 5 ml, Route: IVP, Drug Form: INJ, PRN, PRN Line Flush, Start date: 11/18/11 18:25:00, Duration: 24 hr, Stop date: 11/19/11 18:24:00 IVP No Longer Active LaPell 11/18/2011 [facility] NS (Bolus) IV 1,000 mL 1,000 mL, Rate: 100 ml/hr, Infuse over: 10 hr, Route: IV, Dosing Weight 70.455 kg, Total Volume: 1,000, Start date: 11/18/11 16:20:00, Duration: 1 day, Stop date: 11/19/11 16:19:00 IV No Longer Active LaPell 11/18/2011 [facility] Kalexate Substitution Allowed Active 11/18/2011 [facility] lisinopril Substitution Allowed Active 11/18/2011 [facility] pyridostigmine Substitution Allowed Active 11/18/2011 [facility] Crestor Substitution Allowed Active 11/18/2011 [facility] glyBURIDE Substitution Allowed Active 11/18/2011 [facility] metFORmin Substitution Allowed Active 11/18/2011 [facility] lidocaine 0.1 mL, Route: INJ, Drug form: INJ, ONCALL, Start date: 09/25/11 9:00:00, Duration: 6 hr, Stop date: 09/25/11 14:59:00 INJ No Longer Active Bertram 09/25/2011 [facility] Sodium Chloride 0.45% IV 1,000 mL 1,000 mL, Rate: DIRECTED, Rate: 0 ml/hr, Infuse over: 0, Route: IV, Total Volume: 1,000, Start date: 09/25/11 8:35:00, Duration: 6 hr, Stop date: 09/25/11 14:34:00 IV No Longer Active Bertram 09/25/2011 [facility] Amlodipine Besylate 5 Mg Tablet Daily Active [facility] Atorvastatin Calcium 20 Mg Tablet Bedtime Active [facility] Cholecalciferol (Vitamin D3) (Vitamin D3) 1,000 Unit Tab.chew Daily Active [facility] Glimepiride 2 Mg Tablet Twice A Day Active [facility] Insulin Detemir (Levemir) 100 Unit/1 Ml Vial Bedtime Active [facility] Insulin Lispro (Humalog) 100 Unit/1 Ml Cartridge Three Times A Day Active [facility] Mycophenolate Mofetil 250 Mg Capsule Twice A Day Active [facility] Pyridostigmine [place] 60 Mg Tablet Three Times A Day Active [facility] Allergies, Adverse Reactions, Alerts Substance Category Reaction Severity Reaction type Status Date Reported Comments Source No Known Medication Allergies Assertion Drug allergy [facility] Immunizations Immunization Date Given Site Status Last Updated Comments Source pneumococcal 23-valent [facility]19[facility]2011 [facility], [facility] Not Given Iyoha [facility] Results Order Name Results Value Reference Range Date Interpretation Comments Source CARDIAC ENZYMES Troponin-I <0.02 0.00 - 0.40 01/30/[address] [facility] MPV 9.2 7.4 - 10.4 01/30/[address] [facility] RBC 4.94 4.70 - 6.10 01/30/[address] [facility] Hgb 13.8 14.0 - 18.0 01/30/[address] [facility] MCHC 33.0 32.0 - 36.0 01/30/[address] [facility] WBC 5.3 3.7 - 10.4 01/30/[address] [facility] Hct 41.9 42.0 - 54.0 01/30/[address] [facility] Platelet 213 133 - 450 01/30/[address] [facility] RDW 14.2 11.5 - 14.5 01/30/[address] [facility] MCH 28.0 27.0 - 31.0 01/30/[address] [facility] MCV 84.8 80.0 - 94.0 01/30/2019 [facility] HEMATOLOGY Segs 60.0 45.0 - 75.0 01/30/2019 [facility] HEMATOLOGY Eosinophils 2.5 0.0 - 4.0 01/30/2019 [facility] HEMATOLOGY Monocytes 11.8 2.0 - 12.0 01/30/2019 [facility] HEMATOLOGY Neutrophils # 3.2 1.5 - 8.1 01/30/2019 [facility] HEMATOLOGY Basophils 0.6 0.0 - 1.0 01/30/2019 [facility] HEMATOLOGY Lymphocytes 25.1 20.0 - 40.0 01/30/2019 [facility] HEMATOLOGY Eosinophils # 0.1 0.0 - 0.5 01/30/[address] [facility] Monocytes # 0.6 0.0 - 0.8 01/30/[address] [facility] Lymphocytes # 1.3 1.0 - 5.5 01/30/2019 [facility] IMMUNOLOGY Treponemal Ab Non-Reactive *NA* (01/30/19 3:18 AM) Non 01/30/2019 [facility] LIPIDS VLDL 51 01/30/2019 [facility] LIPIDS HDL 45 >=61 mg/dL 01/30/2019 [facility] LIPIDS Chol 126 <=199 mg/dL 01/30/2019 [facility] LIPIDS LDL (Calculated) 30 <=99 mg/dL 01/30/2019 [facility] LIPIDS Trig 254 <=149 mg/dL 01/30/2019 [facility] LIPIDS CHD Risk 2.80 4.00 - 7.30 01/30/2019 [facility] SPECIAL CHEMISTRY Hgb A1C 7.0 <=5.6 % 01/30/2019 [facility] CARDIAC ENZYMES Troponin-I <0.02 0.00 - 0.40 01/30/2019 [facility] CHEM PANEL Magnesium Lvl 2.2 1.8 - 2.4 01/30/2019 [facility] CHEM PANEL eGFR 46 01/30/2019 Result Comment: The eGFR is calculated using [...] should be multiplied by the estimated BMI. [facility] CHEM PANEL AGAP 12.4 10.0 - 20.0 01/30/2019 [facility] CHEM PANEL B/C Ratio 15 6 - 25 01/30/2019 [facility] CHEM PANEL Bili Total 0.6 0.2 - 1.3 01/30/2019 [facility] CHEM PANEL Calcium Lvl 8.7 8.5 - 10.5 01/30/2019 [facility] CHEM PANEL Total Protein 7.6 6.4 - 8.4 01/30/2019 [facility] CHEM PANEL Albumin Lvl 3.3 3.5 - 5.0 01/30/2019 [facility] CHEM PANEL ALT 49 0 - 65 01/30/2019 [facility] CHEM PANEL Globulin 4.3 2.7 - 4.2 01/30/2019 [facility] CHEM PANEL A/G Ratio 0.8 0.7 - 1.6 01/30/2019 [facility] CHEM PANEL CO2 24 24 - 32 01/30/2019 [facility] CHEM PANEL Chloride Lvl 105 95 - 109 01/30/2019 [facility] CHEM PANEL AST 47 0 - 37 01/30/2019 [facility] CHEM PANEL Alk Phos 119 39 - 136 01/30/2019 [facility] CHEM PANEL Glucose Lvl 121 70 - 99 01/30/2019 [facility] CHEM PANEL BUN 23 7 - 22 01/30/2019 [facility] CHEM PANEL Creatinine Lvl 1.50 0.50 - 1.40 01/30/2019 [facility] CHEM PANEL Potassium Lvl 4.4 3.5 - 5.1 01/30/2019 [facility] CHEM PANEL Sodium Lvl 137 135 - 145 01/30/2019 [facility] CARDIAC ENZYMES Troponin-I <0.02 0.00 - 0.40 01/30/2019 [facility] CARDIAC ENZYMES Total CK 270 12 - 191 01/30/2019 [facility] ELECTROLYTES AGAP 10.4 10.0 - 20.0 01/30/2019 [facility] ELECTROLYTES eGFR 43 01/30/2019 Result Comment: The eGFR is calculated using [...] should be multiplied by the estimated BMI. [facility] ELECTROLYTES CO2 25 24 - 32 01/30/2019 [facility] ELECTROLYTES Chloride Lvl 106 95 - 109 01/30/2019 [facility] ELECTROLYTES Potassium Lvl 4.4 3.5 - 5.1 01/30/2019 [facility] ELECTROLYTES Calcium Lvl 8.4 8.5 - 10.5 01/30/2019 [facility] ELECTROLYTES Sodium Lvl 137 135 - 145 01/30/2019 [facility] ELECTROLYTES Creatinine Lvl 1.60 0.50 - 1.40 01/30/2019 [facility] ELECTROLYTES BUN 25 7 - 22 01/30/2019 [facility] ELECTROLYTES Glucose Lvl 103 70 - 99 01/30/2019 [facility] HEMATOLOGY PT 13.8 12.0 - 14.7 01/30/2019 [facility] HEMATOLOGY INR 1.08 0.85 - 1.17 01/30/[address] [facility] Hct 42.7 42.0 - 54.0 01/30/[address] [facility] Hgb 13.8 14.0 - 18.0 01/30/[address] [facility] MCV 84.9 80.0 - 94.0 01/30/[address] [facility] MCH 27.4 27.0 - 31.0 01/30/[address] [facility] RBC 5.03 4.70 - 6.10 01/30/[address] [facility] WBC 6.1 3.7 - 10.4 01/30/[address] [facility] RDW 14.6 11.5 - 14.5 01/30/[address] [facility] MCHC 32.3 32.0 - 36.0 01/30/[address] [facility] MPV 9.1 7.4 - 10.4 01/30/[address] [facility] Platelet 250 133 - 450 01/30/2019 [facility] HEMATOLOGY PTT 23.8 22.9 - 35.8 01/30/2019 [facility] HEMATOLOGY Eosinophils # 0.1 0.0 - 0.5 01/30/2019 [facility] HEMATOLOGY Basophils # 0.0 0.0 - 0.2 01/30/2019 [facility] HEMATOLOGY Neutrophils # 4.2 1.5 - 8.1 01/30/[address] [facility] Lymphocytes # 1.2 1.0 - 5.5 01/30/[address] [facility] Monocytes # 0.5 0.0 - 0.8 01/30/[address] [facility] Lymphocytes 20.3 20.0 - 40.0 01/30/[address] [facility] Segs 69.8 45.0 - 75.0 01/30/[address] [facility] Monocytes 8.0 2.0 - 12.0 01/30/[address] [facility] Basophils 0.6 0.0 - 1.0 01/30/[address] [facility] Eosinophils 1.3 0.0 - 4.0 01/30/2019 [facility] Capillary blood glucose measurement by glucometer (mass/volume) 114 70 - 120 08/07/2018 [facility] Serum or plasma sodium measurement (moles/volume) 137 136 - 145 08/07/2018 [facility] Serum or plasma potassium measurement (moles/volume) 5.0 3.5 - 5.1 08/07/2018 [facility] Serum or plasma chloride measurement (moles/volume) 106 98 - 107 08/07/2018 [facility] Serum or plasma carbon dioxide, total measurement (moles/volume) 19 22 - 29 08/07/2018 [facility] Serum or plasma anion gap 17.0 8 - 16 08/07/2018 [facility] Serum or plasma urea nitrogen measurement (mass/volume) 28 7 - 26 08/07/2018 [facility] Serum or plasma creatinine measurement (mass/volume) 1.79 0.72 - 1.25 08/07/2018 [facility] Serum or plasma urea nitrogen/creatinine mass ratio 16 6 - 25 08/07/2018 [facility] Estimated glomerular filtration rate (GFR) determination 38 60 08/07/2018 [facility] Glucose measurement 117 74 - 118 08/07/2018 [facility] Serum or plasma calcium measurement (mass/volume) 9.1 8.4 - 10.2 08/07/2018 [facility] Blood leukocytes automated count (number/volume) 6.95 4.8 - 10.8 08/05/2018 [facility] Blood erythrocytes automated count (number/volume) 5.22 4.3 - 5.7 08/05/2018 [facility] Blood hemoglobin measurement (moles/volume) 14.6 14.0 - 18.0 08/05/2018 [facility] Automated blood hematocrit (volume fraction) 45.6 38.2 - 49.6 08/05/2018 [facility] Automated erythrocyte mean corpuscular volume 87.4 81 - 99 08/05/2018 [facility] Automated erythrocyte mean corpuscular hemoglobin (mass per erythrocyte) 28.0 28 - 32 08/05/2018 [facility] Automated erythrocyte mean corpuscular hemoglobin concentration measurement (mass/volume) 32.0 31 - 35 08/05/2018 [facility] RDW BldCo-Rto 13.2 11.7 - 14.4 08/05/2018 [facility] Automated blood platelet count (count/volume) 325 140 - 360 08/05/2018 [facility] Automated blood segmented neutrophil count as percentage of total leukocytes 62.9 38.7 - 80.0 08/05/2018 [facility] Automated blood lymphocyte count as percentage ot total leukocytes 22.2 18.0 - 39.1 08/05/2018 [facility] Automated blood monocyte count as percentage of total leukocytes 10.2 4.4 - 11.3 08/05/2018 [facility] Automated blood eosinophil count as percentage of total leukocytes 3.7 0.0 - 6.0 08/05/2018 [facility] Automated blood basophil count as percentage of total leukocytes 0.7 0.0 - 1.0 08/05/2018 [facility] IM GRANULOCYTES % 0.3 0.0 - 1.0 08/05/2018 [facility] Automated blood neutrophil count 4.4 2.1 - 6.9 08/05/2018 [facility] Blood lymphocytes count (number/volume) 1.5 1.0 - 3.2 08/05/2018 [facility] Blood monocytes automated count (number/volume) 0.7 0.2 - 0.8 08/05/2018 [facility] Automated blood eosinophil count 0.3 0.0 - 0.4 08/05/2018 [facility] Automated blood basophil count (count/volume) 0.1 0.0 - 0.1 08/05/2018 [facility] Absolute Immature Granulocyte (auto 0.02 0 - 0.1 08/05/2018 [facility] CARDIAC ENZYMES Total CK 245 12 - 191 01/06/2018 [facility] CARDIAC ENZYMES Troponin-I <0.02 0.00 - 0.40 01/06/2018 [facility] ELECTROLYTES AGAP 9.6 10.0 - 20.0 01/06/2018 [facility] ELECTROLYTES eGFR 36 01/06/2018 Result Comment: The eGFR is calculated [...] should be multiplied by the estimated BMI. [facility] ELECTROLYTES CO2 28 24 - 32 01/06/2018 [facility] ELECTROLYTES Chloride Lvl 106 95 - 109 01/06/2018 [facility] ELECTROLYTES Potassium Lvl 4.6 3.5 - 5.1 01/06/2018 [facility] ELECTROLYTES Sodium Lvl 139 135 - 145 01/06/2018 [facility] ELECTROLYTES Creatinine Lvl 1.88 0.50 - 1.40 01/06/2018 [facility] ELECTROLYTES BUN 23 7 - 22 01/06/2018 [facility] ELECTROLYTES Glucose Lvl 223 70 - 99 01/06/2018 [facility] ELECTROLYTES Calcium Lvl 8.9 8.5 - 10.5 01/06/2018 [facility] HEMATOLOGY PT 13.6 12.0 - 14.7 01/06/2018 [facility] HEMATOLOGY INR 1.04 0.85 - 1.17 01/06/2018 [facility] HEMATOLOGY PTT 27.5 22.9 - 35.8 01/06/2018 [facility] HEMATOLOGY Platelet 285 133 - 450 01/06/2018 [facility] HEMATOLOGY RDW 14.3 11.5 - 14.5 01/06/2018 [facility] HEMATOLOGY MPV 9.1 7.4 - 10.4 01/06/2018 [facility] HEMATOLOGY MCV 84.7 80.0 - 94.0 01/06/2018 [facility] HEMATOLOGY MCHC 33.1 32.0 - 36.0 01/06/2018 [facility] HEMATOLOGY MCH 28.1 27.0 - 31.0 01/06/2018 [facility] HEMATOLOGY Hct 48.3 42.0 - 54.0 01/06/2018 [facility] HEMATOLOGY Hgb 16.0 14.0 - 18.0 01/06/2018 [facility] HEMATOLOGY WBC 7.7 3.7 - 10.4 01/06/2018 [facility] HEMATOLOGY RBC 5.70 4.70 - 6.10 01/06/2018 [facility] HEMATOLOGY Segs 78.4 45.0 - 75.0 01/06/2018 [facility] HEMATOLOGY Basophils 0.6 0.0 - 1.0 01/06/2018 [facility] HEMATOLOGY Lymphocytes 13.3 20.0 - 40.0 01/06/2018 [facility] HEMATOLOGY Monocytes 7.3 2.0 - 12.0 01/06/2018 [facility] HEMATOLOGY Lymphocytes # 1.0 1.0 - 5.5 01/06/2018 [facility] HEMATOLOGY Monocytes # 0.6 0.0 - 0.8 01/06/2018 [facility] HEMATOLOGY Segs-Bands # 6.1 1.5 - 8.1 01/06/2018 [facility] HEMATOLOGY Eosinophils 0.4 0.0 - 4.0 01/06/2018 [facility] LIPIDS CHD Risk 2.72 4.00 - 7.30 01/06/2018 [facility] LIPIDS HDL 47 >=61 mg/dL 01/06/2018 [facility] LIPIDS Trig 235 <=149 mg/dL 01/06/2018 [facility] LIPIDS Chol 128 <=199 mg/dL 01/06/2018 [facility] LIPIDS LDL (Calculated) 34 <=99 mg/dL 01/06/2018 [facility] LIPIDS VLDL 47 01/06/2018 [facility] SPECIAL CHEMISTRY Hgb A1C 6.9 <=5.6 % 01/06/2018 [facility] BEDSIDE GLUCOSE TESTING Gluc POC Lifscn 197 70 - 99 12/08/2011 [place] <sup>2</sup>Interpretive Data: Upper Reportable Limit: 200 mg/dL. [facility] BEDSIDE GLUCOSE TESTING Gluc POC Lifscn 129 70 - 99 12/08/2011 [place] <sup>3</sup>Interpretive Data: Upper Reportable Limit: 200 mg/dL. [facility] BEDSIDE GLUCOSE TESTING Gluc POC Lifscn 82 70 - 99 12/08/2011 Normal <sup>4</sup>Interpretive Data: Upper Reportable Limit: 200 mg/dL. [facility] BEDSIDE GLUCOSE TESTING Comment1 Notify RN 12/05/2011 NA [facility] BEDSIDE GLUCOSE TESTING Comment1 Notify RN 12/05/2011 NA [facility] BEDSIDE GLUCOSE TESTING Comment1 Notify RN 12/05/2011 [facility] CHEMISTRY CO2 32 24 - 32 12/05/2011 Normal [facility] CHEMISTRY Total Protein 5.6 6.4 - 8.4 12/05/2011 LOW [facility] CHEMISTRY Calcium Lvl 7.3 8.5 - 10.5 12/05/2011 LOW [facility] CHEMISTRY Albumin Lvl 2.0 3.5 - 5.0 12/05/2011 LOW [facility] CHEMISTRY ALT 238 0 - 65 12/05/2011 [facility] CHEMISTRY Alk Phos 95 39 - 136 12/05/2011 Normal [facility] CHEMISTRY Bili Total 0.4 0.2 - 1.3 12/05/2011 Normal [facility] CHEMISTRY AST 96 0 - 37 12/05/2011 [facility] CHEMISTRY Potassium Lvl 3.9 3.5 - 5.1 12/05/2011 Normal [facility] CHEMISTRY Chloride Lvl 106 95 - 109 12/05/2011 Normal [facility] CHEMISTRY Glucose Lvl 139 70 - 99 12/05/2011 [place] <sup>5</sup>Interpretive Data: Adult reference range values reflect the clinical guidelines of the [place] [employer]. [facility] CHEMISTRY BUN 31 7 - 22 12/05/2011 [facility] CHEMISTRY Creatinine Lvl 0.9 0.5 - 1.4 12/05/2011 Normal [facility] CHEMISTRY Sodium Lvl 142 135 - 145 12/05/2011 Normal [facility] CHEMISTRY Globulin 3.6 2.0 - 4.0 12/05/2011 Normal [facility] CHEMISTRY A/G Ratio 0.6 0.7 - 1.6 12/05/2011 LOW [facility] CHEMISTRY AGAP 7.9 10.0 - 20.0 12/05/2011 [facility] CHEMISTRY B/C Ratio 34 6 - 25 12/05/2011 [facility] HEMATOLOGY Lymphocytes # 0.8 1.0 - 5.5 12/05/2011 LOW [facility] HEMATOLOGY Eosinophils 1.1 0.0 - 4.0 12/05/2011 Normal [facility] HEMATOLOGY Basophils 0.2 0.0 - 1.0 12/05/2011 Normal [facility] HEMATOLOGY Segs-Bands # 5.0 1.5 - 8.1 12/05/2011 Normal [facility] HEMATOLOGY Basophils # 0.0 0.0 - 0.2 12/05/2011 Normal [facility] HEMATOLOGY Eosinophils # 0.1 0.0 - 0.5 12/05/2011 Normal [facility] HEMATOLOGY Monocytes # 0.4 0.0 - 0.8 12/05/2011 Normal [facility] HEMATOLOGY Segs 79.8 45.0 - 75.0 12/05/2011 [facility] HEMATOLOGY Monocytes 6.2 2.0 - 12.0 12/05/2011 Normal [facility] HEMATOLOGY Lymphocytes 12.7 20.0 - 40.0 12/05/2011 LOW [facility] HEMATOLOGY Platelet 170 133 - 450 12/05/2011 Normal [facility] HEMATOLOGY MPV 8.6 7.4 - 10.4 12/05/2011 Normal [facility] HEMATOLOGY MCHC 34.0 32.0 - 36.0 12/05/2011 Normal [facility] HEMATOLOGY RDW 14.5 11.5 - 14.5 12/05/2011 Normal [facility] HEMATOLOGY WBC 6.3 3.7 - 10.4 12/05/2011 Normal [facility] HEMATOLOGY RBC 3.75 4.70 - 6.10 12/05/2011 LOW [facility] HEMATOLOGY Hgb 11.1 14.0 - 18.0 12/05/2011 LOW [facility] HEMATOLOGY MCV 87.1 80.0 - 94.0 12/05/2011 Normal [facility] HEMATOLOGY Hct 32.6 42.0 - 54.0 12/05/2011 LOW [facility] HEMATOLOGY MCH 29.7 27.0 - 31.0 12/05/2011 Normal [facility] CHEMISTRY Hgb A1C 5.6 12/04/2011 NA <sup>9</sup>Interpretive Data: HbA1C% eAG(mg/dL) Interpretation 6.0 126 Very good control 6.5 140 Very good control 7.0 154 Good Control 7.5 169 Good Control 8.0 183 Marginal Control, take action to lower 8.5 197 Marginal Control, take action to lower 9.0 212 Poor Control, take action to lower 9.5 226 Poor Control, take action to lower 10.0 240 Poor Control, take action to lower [facility] CHEMISTRY A/G Ratio 0.6 0.7 - 1.6 12/04/2011 LOW [facility] CHEMISTRY AGAP 9.3 10.0 - 20.0 12/04/2011 LOW [facility] CHEMISTRY Globulin 3.8 2.0 - 4.0 12/04/2011 Normal [facility] CHEMISTRY B/C Ratio 43 6 - 25 12/04/2011 [facility] CHEMISTRY AST 178 0 - 37 12/04/2011 [facility] CHEMISTRY CO2 30 24 - 32 12/04/2011 Normal [facility] CHEMISTRY Potassium Lvl 4.3 3.5 - 5.1 12/04/2011 Normal [facility] CHEMISTRY Chloride Lvl 109 95 - 109 12/04/2011 Normal [facility] CHEMISTRY Sodium Lvl 144 135 - 145 12/04/2011 Normal [facility] CHEMISTRY BUN 39 7 - 22 12/04/2011 [facility] CHEMISTRY Creatinine Lvl 0.9 0.5 - 1.4 12/04/2011 Normal [facility] CHEMISTRY Glucose Lvl 207 70 - 99 12/04/2011 [place] <sup>6</sup>Interpretive Data: Adult reference range values reflect the clinical guidelines of the [place] [employer]. [facility] CHEMISTRY Bili Total 0.6 0.2 - 1.3 12/04/2011 Normal [facility] CHEMISTRY Alk Phos 120 39 - 136 12/04/2011 Normal [facility] CHEMISTRY ALT 346 0 - 65 12/04/2011 [facility] CHEMISTRY Total Protein 5.9 6.4 - 8.4 12/04/2011 [facility] CHEMISTRY Albumin Lvl 2.1 3.5 - 5.0 12/04/2011 [facility] CHEMISTRY Calcium Lvl 7.7 8.5 - 10.5 12/04/2011 [facility] HEMATOLOGY Monocytes # 0.2 0.0 - 0.8 12/04/2011 Normal [facility] HEMATOLOGY Eosinophils # 0.0 0.0 - 0.5 12/04/2011 Normal [facility] HEMATOLOGY Basophils # 0.0 0.0 - 0.2 12/04/2011 Normal [facility] HEMATOLOGY Lymphocytes # 0.2 1.0 - 5.5 12/04/2011 [facility] HEMATOLOGY Segs 93.1 45.0 - 75.0 12/04/2011 [facility] HEMATOLOGY Eosinophils 0.1 0.0 - 4.0 12/04/2011 Normal [facility] HEMATOLOGY Lymphocytes 4.0 20.0 - 40.0 12/04/2011 [facility] HEMATOLOGY Basophils 0.0 0.0 - 1.0 12/04/2011 Normal [facility] HEMATOLOGY Monocytes 2.8 2.0 - 12.0 12/04/2011 Normal [facility] HEMATOLOGY Segs-Bands # 5.4 1.5 - 8.1 12/04/2011 Normal [facility] HEMATOLOGY MCH 29.3 27.0 - 31.0 12/04/2011 Normal [facility] HEMATOLOGY MCV 87.8 80.0 - 94.0 12/04/2011 [facility] HEMATOLOGY Hct 34.7 42.0 - 54.0 12/04/2011 [facility] HEMATOLOGY Hgb 11.6 14.0 - 18.0 12/04/2011 [facility] HEMATOLOGY MCHC 33.4 32.0 - 36.0 12/04/2011 Normal [facility] HEMATOLOGY WBC 5.8 3.7 - 10.4 12/04/2011 [facility] HEMATOLOGY RDW 15.0 11.5 - 14.5 12/04/2011 [facility] HEMATOLOGY RBC 3.95 4.70 - 6.10 12/04/2011 [facility] HEMATOLOGY Platelet 171 133 - 450 12/04/2011 Normal [facility] HEMATOLOGY MPV 9.0 7.4 - 10.4 12/04/2011 Normal [facility] CHEMISTRY A/G Ratio 0.6 0.7 - 1.6 12/02/2011 [facility] CHEMISTRY Globulin 4.1 2.0 - 4.0 12/02/2011 [facility] CHEMISTRY AGAP 11.0 10.0 - 20.0 12/02/2011 Normal [facility] CHEMISTRY B/C Ratio 58 6 - 25 12/02/2011 [facility] CHEMISTRY CO2 29 24 - 32 12/02/2011 Normal [facility] CHEMISTRY Calcium Lvl 8.1 8.5 - 10.5 12/02/2011 [facility] CHEMISTRY Chloride Lvl 111 95 - 109 12/02/2011 [facility] CHEMISTRY Total Protein 6.4 6.4 - 8.4 12/02/2011 Normal [facility] CHEMISTRY AST 73 0 - 37 12/02/2011 [facility] CHEMISTRY Bili Total 0.6 0.2 - 1.3 12/02/2011 Normal [facility] CHEMISTRY Alk Phos 73 39 - 136 12/02/2011 Normal [facility] CHEMISTRY Potassium Lvl 4.0 3.5 - 5.1 12/02/2011 [facility] CHEMISTRY Albumin Lvl 2.3 3.5 - 5.0 12/02/2011 [facility] CHEMISTRY ALT 180 0 - 65 12/02/2011 [facility] CHEMISTRY Sodium Lvl 147 135 - 145 12/02/2011 [facility] CHEMISTRY Creatinine Lvl 0.8 0.5 - 1.4 12/02/2011 Normal [facility] CHEMISTRY BUN 46 7 - 22 12/02/2011 [facility] CHEMISTRY Glucose Lvl 165 70 - 99 12/02/2011 [place] <sup>7</sup>Interpretive Data: Adult reference range values reflect the clinical guidelines of the [place] [employer]. [facility] HEMATOLOGY Hgb 11.4 14.0 - 18.0 12/02/2011 [facility] HEMATOLOGY RBC 3.98 4.70 - 6.10 12/02/2011 [facility] HEMATOLOGY MCH 28.6 27.0 - 31.0 12/02/2011 [facility] HEMATOLOGY MCV 86.9 80.0 - 94.0 12/02/2011 [facility] HEMATOLOGY Hct 34.6 42.0 - 54.0 12/02/2011 [facility] HEMATOLOGY Platelet 239 133 - 450 12/02/2011 [facility] HEMATOLOGY MPV 8.2 7.4 - 10.4 12/02/2011 [facility] HEMATOLOGY WBC 3.8 3.7 - 10.4 12/02/2011 [facility] HEMATOLOGY RDW 14.4 11.5 - 14.5 12/02/2011 [facility] HEMATOLOGY MCHC 33.0 32.0 - 36.0 12/02/2011 Normal [facility] HEMATOLOGY Lymphocytes # 0.2 1.0 - 5.5 12/02/2011 LOW [facility] HEMATOLOGY Segs-Bands # 3.5 1.5 - 8.1 12/02/2011 Normal [facility] HEMATOLOGY Basophils 0.0 0.0 - 1.0 12/02/2011 Normal [facility] HEMATOLOGY Eosinophils 0.0 0.0 - 4.0 12/02/2011 Normal [facility] HEMATOLOGY Basophils # 0.0 0.0 - 0.2 12/02/2011 Normal [facility] HEMATOLOGY Eosinophils # 0.0 0.0 - 0.5 12/02/2011 Normal [facility] HEMATOLOGY Monocytes # 0.1 0.0 - 0.8 12/02/2011 Normal [facility] HEMATOLOGY Monocytes 2.0 2.0 - 12.0 12/02/2011 Normal [facility] HEMATOLOGY Lymphocytes 5.4 20.0 - 40.0 12/02/2011 LOW [facility] HEMATOLOGY Segs 92.6 45.0 - 75.0 12/02/2011 HI [facility] HEMATOLOGY PT 15.3 12.0 - 14.7 12/01/2011 HI [facility] HEMATOLOGY INR 1.21 0.85 - 1.17 12/01/2011 [place] <sup>10</sup>Interpretive Data: RECOMMENDED RANGES FOR PROTIME INR: 2.0- 3.0 for most medical and surgical thromboembolic states. 2.5-3.5 for artificial heart valves and recurrent embolism. INR SHOULD BE USED ONLY FOR PATIENTS ON STABLE ANTICOAGULANT THERAPY. [facility] HEMATOLOGY PTT 28.2 22.9 - 35.8 12/01/2011 Normal <sup>13</sup>Interpretive Data: Heparin Therapeutic Range: 57 - 92 Seconds [facility] CHEMISTRY Bili Direct 0.2 0.0 - 0.3 11/30/2011 Normal [facility] CHEMISTRY Bili Indirect 0.3 0.0 - 1.0 11/30/2011 Normal [facility] HEMATOLOGY PT 14.3 12.0 - 14.7 11/30/2011 Normal [facility] HEMATOLOGY INR 1.11 0.85 - 1.17 11/30/2011 Normal <sup>11</sup>Interpretive Data: RECOMMENDED RANGES FOR PROTIME INR: 2.0-3.0 for most medical and surgical thromboembolic states. 2.5-3.5 for artificial heart valves and recurrent embolism. INR SHOULD BE USED ONLY FOR PATIENTS ON STABLE ANTICOAGULANT THERAPY. [facility] CHEMISTRY FiO2 Art 35.0 11/29/2011 NA [facility] CHEMISTRY BE Art 6 -2-2 - 2 11/29/2011 [facility] CHEMISTRY O2 Sat Art 99.2 95.0 - 100.0 11/29/2011 Normal [facility] CHEMISTRY Allens Art Positive (11/29/2011 12:42:00) 11/29/2011 Normal [facility] CHEMISTRY Mode Art Tube Comp 11/29/2011 NA [facility] CHEMISTRY Site Art Right Ra (11/29/2011 12:42:00) 11/29/2011 Normal [facility] CHEMISTRY pCO2 Art 34 35 - 45 11/29/2011 LOW [facility] CHEMISTRY pO2 Art 129 80 - 100 11/29/2011 [facility] CHEMISTRY HCO3 Art 28 22 - 26 11/29/2011 [facility] CHEMISTRY pH Art 7.54 7.35 - 7.45 11/29/2011 [facility] CHEMISTRY PEEP Art 5.0 11/29/2011 NA [facility] CHEMISTRY PS Art 12 11/29/2011 [facility] CHEMISTRY Vt Art 550 11/29/2011 NA [facility] CHEMISTRY FiO2 Art 35.0 11/29/2011 NA [facility] CHEMISTRY Site Art Right Ra (11/29/2011 04:39:00) 11/29/2011 Normal [facility] CHEMISTRY Allens Art Positive (11/29/2011 04:39:00) 11/29/2011 Normal [facility] CHEMISTRY Mode Art Simv (11/29/2011 04:39:00) 11/29/2011 Normal [facility] CHEMISTRY Rate Art 4 11/29/2011 [facility] CHEMISTRY pO2 Art 107 80 - 100 11/29/2011 [facility] CHEMISTRY HCO3 Art 30 22 - 26 11/29/2011 [facility] CHEMISTRY pCO2 Art 49 35 - 45 11/29/2011 [facility] CHEMISTRY O2 Sat Art 98.5 95.0 - 100.0 11/29/2011 Normal [facility] CHEMISTRY BE Art 4 -2-2 - 2 11/29/2011 [facility] CHEMISTRY pH Art 7.41 7.35 - 7.45 11/29/2011 Normal [facility] CHEMISTRY Bili Direct 0.2 0.0 - 0.3 11/29/2011 Normal [facility] CHEMISTRY Bili Indirect 0.2 0.0 - 1.0 11/29/2011 Normal [facility] HEMATOLOGY PT 14.0 12.0 - 14.7 11/29/2011 Normal [facility] HEMATOLOGY INR 1.08 0.85 - 1.17 11/29/2011 Normal <sup>12</sup>Interpretive Data: RECOMMENDED RANGES FOR PROTIME INR: 2.0-3.0 for most medical and surgical thromboembolic states. 2.5-3.5 for artificial heart valves and recurrent embolism. INR SHOULD BE USED ONLY FOR PATIENTS ON STABLE ANTICOAGULANT THERAPY. [facility] IMMUNOLOGY Hep Bs Ag Negative *NA* (11/29/2011 03:00:00) Negative 11/29/2011 [facility] IMMUNOLOGY Hep B Core IgM Negative *NA* (11/29/2011 03:00:00) Negative 11/29/2011 [facility] IMMUNOLOGY Hep A IgM Negative *NA* (11/29/2011 03:00:00) Negative 11/29/2011 [facility] IMMUNOLOGY Hep C Ab Negative *NA* (11/29/2011 03:00:00) Negative 11/29/2011 [facility] CHEMISTRY FiO2 Art 35.0 11/28/2011 NA [facility] CHEMISTRY PEEP Art 5.0 11/28/2011 [facility] CHEMISTRY PS Art 12 11/28/2011 [facility] CHEMISTRY Vt Art 550 11/28/2011 [facility] CHEMISTRY BE Art 2 -2-2 - 2 11/28/2011 Normal [facility] CHEMISTRY Rate Art 4 11/28/2011 [facility] CHEMISTRY Site Art Right Ra (11/28/2011 05:19:00) 11/28/2011 Normal [facility] CHEMISTRY O2 Sat Art 97.1 95.0 - 100.0 11/28/2011 Normal [facility] CHEMISTRY Allens Art Positive (11/28/2011 05:19:00) 11/28/2011 Normal [facility] CHEMISTRY HCO3 Art 26 22 - 26 11/28/2011 Normal [facility] CHEMISTRY Mode Art Simv (11/28/2011 05:19:00) 11/28/2011 Normal [facility] CHEMISTRY pH Art 7.42 7.35 - 7.45 11/28/2011 Normal [facility] CHEMISTRY pO2 Art 88 80 - 100 11/28/2011 Normal [facility] CHEMISTRY pCO2 Art 41 35 - 45 11/28/2011 Normal [facility] CHEMISTRY Rate Art 6 11/27/2011 [facility] CHEMISTRY Vt Art 550 11/27/2011 NA [facility] CHEMISTRY PEEP Art 5.0 11/27/2011 NA [facility] CHEMISTRY PS Art 12 11/27/2011 [facility] CHEMISTRY BNP 80 <=100 11/23/2011 Normal <sup>8</sup>Interpretive Data: Elevated results are in line with increasing severity of congestive heart failure. Minor elevations between 100 and 300 may be seen with Myocardial Ischemia, Sodium retaining drugs, and compensated/treated heart failure. [facility] CHEMISTRY Magnesium Lvl 1.9 1.8 - 2.4 11/23/2011 Normal [facility] Microbiology Culture: BAL Quantitative w/Gram Stain 11/20/2011 [facility] Microbiology Culture: Respiratory w/Gram Stain 11/20/2011 [facility] Microbiology Gram Stain 11/20/2011 [facility] BACTERIAL - SEROLOGY MRSA by PCR Negative 1 (11/19/2011 15:40:00) 11/19/2011 Normal <sup>1</sup>Interpretive Data: INTERPRETATION: Negative......No MRSA DNA detected by PCR Positive......MRSA DNA detected by PCR ASSAY LIMITATIONS: This is a screening test for colonization by MRSA. A positive test result indicates the patient is colonized by MRSA, but does not necessarily mean that an infection is present or that treatment is necessary. Likewise, a negative test does not exclude colonization or infection. Patients should be evaluated clinically for symptoms and signs of infection before making therapeutic decisions. Routine decolonization is discouraged and should only be considered for select patients after consultation with an infectious diseases specialist. [facility] BEDSIDE GLUCOSE TESTING Gluc POC Lifscn 77 65 - 110 09/25/2011 Normal <sup>1</sup>Interpretive Data: Upper Reportable Limit: 200 mg/dL. [facility] Pathology Reports No Data Provided for This Section Diagnostic Reports Report Value Date Source Brain wo contrast MRI Clinical Indication: - vision changes; Comparison: MRI brain 01/07/2018 CTA with perfusion 01/29/2019 TECHNIQUE: Multiplanar pre- and post-gadolinium contrast-enhanced MRI of the brain is performed on a 1.5 Renate magnet. Contrast: None. FINDINGS: BRAIN PARENCHYMA: Punctate areas restricted diffusion within the left thalamus posterior medial left temporal lobe and left occipital lobe. No large territory acute infarct evident. Redemonstration of subacute to chronic appearing right occipital lobe infarct. Midline structures are within normal limits. Interval encephalomalacia evident within the right occipital lobe. Scattered nonspecific white matter changes likely reflect age-related chronic small vessel ischemic disease. Remote lacunar infarct within the right centrum semiovale. Minimal hemorrhagic staining of old right infarct present. Scattered susceptibility abnormalities within the right parietal lobe are nonspecific in nature. CEREBELLOPONTINE REGIONS AND SKULL BASE: The cerebellopontine angles appear unremarkable. The sellar and pineal regions are unremarkable. VENTRICLES: Mild prominence likely due to central volume loss. VESSELS: The venous sinuses are grossly unremarkable. The expected intracranial flow voids are present. ORBITS, VISUALIZED PARANASAL SINUSES AND MASTOIDS: The orbits are unremarkable. Bilateral cataract surgery noted. Mild mucosal thickening within the ethmoid and maxillary sinuses. Mastoid air cells are clear. IMPRESSION: 1. Scattered punctate areas of acute ischemia within the left thalamus, posterior medial left temporal lobe and left occipital lobe. This corresponds to the left CARDIOVASCULAR TECHNICIAN territory. No large territory acute infarct evident. 2. Redemonstrated evolving chronic right CARDIOVASCULAR TECHNICIAN infarct. SL: [email or web address] 01/29/2019 [facility] Chest 1view DX EXAM: Chest 1view DX DATE: 01/29/2019 7:13 PM CDT INDICATION: Code Stroke - gait disturbance, right sided hemianopsia, neurologist wanted vessel imaging, concerned for basilar stroke COMPARISON: 01/06/2018. IMPRESSION: Stable cardiac silhouette and mediastinum. No focal consolidation, significant pleural effusion or pneumothorax. SL: [email or web address]-AARON 01/29/2019 [facility] Brain Stroke wo contrast CT EXAM: CT BRAIN WITHOUT CONTRAST DATE: 01/29/2019 7:13 PM CDT INDICATION: - gait disturbance, right sided hemianopsia, neurologist wanted vessel imaging, concerned for basilar stroke. Acute CVA. COMPARISON: CT head of 01/06/2018. TECHNIQUE: Routine axial CT images of the brain were obtained. IV contrast: None. DLP: 592 mGy-cm FINDINGS: Non-contrast images of the head demonstrate no edema, hemorrhage, mass lesion or other acute intracranial abnormality. Old right occipital infarct is present. Old right frontal infarct is present. Diffuse cerebral atrophy and mild chronic small vessel ischemic change. The tolbert-white matter distinction is preserved. The ventricles are stable. The basal cisterns and sulci are normal in size. Marked atherosclerotic calcification of the distal internal carotid and vertebral arteries. Mild mucosal thickening of the ethmoid air cells. Small posterior right maxillary mucous retention cyst or polyp is present. Underpneumatized right mastoid air cells with partial opacification. IMPRESSION: 1. No definite acute territorial infarct or intracranial hemorrhage detected. 2. Old right occipital infarct is present. Old right frontal infarct is present. Diffuse cerebral atrophy and mild chronic small vessel ischemic change. Critical findings were called to Sonny Gaona MD on 01/29/2019 7:46 PM CDT. SL: [email or web address]-PC 01/29/2019 [facility] Brain/Neck Stroke perfusion CTA EXAM: CT ANGIOGRAM OF THE BRAIN EXAM: CT ANGIOGRAM OF THE NECK EXAM: CT PERFUSION BRAIN DATE: 01/29/2019 19:13 CDT INDICATION: Right-sided hemianopsia. Gait disturbance. COMPARISON: MRA dated 01/06/2018. TECHNIQUE: Rapid acquisition spiral images of the brain and neck were obtained between the aortic arch and the cranial vertex during intravenous infusion of iodinated contrast for the purposes of CT angiography. CT angiographic images were created using maximum intensity projection technique at the acquisition workstation. The source images are also presented for interpretation. 3D reconstructions of the arteries were generated. IV contrast: 100 mL Omnipaque 350 DLP: 3826 mGy-cm Dynamic CT perfusion images on a limited area of the brain parenchyma are performed during bolus injection of iodinated contrast material. Color maps of relative cerebral blood flow, relative cerebral blood volume, time to peak, and mean transit time are created on an independent workstation and are submitted along with the source image data. FINDINGS: BRAIN CTA: No branch occlusion, vascular injury, arteritis, vascular malformation or aneurysm is identified. There is atherosclerotic calcification of the carotid siphons with multifocal areas of mild to moderate stenosis. No hemodynamically significant stenosis is visualized. The anterior and middle cerebral arteries demonstrate a normal course and caliber. There is an early bifurcation to the right middle cerebral artery. The anterior communicating artery complex is within normal limits. The vertebral and basilar arteries demonstrate a normal course and caliber. The distal branches of the right posterior cerebral artery appears somewhat diminutive in caliber in the area of known encephalomalacia. The left posterior cerebral artery demonstrates a normal course and caliber. The deep cerebral veins and major venous sinuses are normal. NECK CTA: The great vessels originate from the aortic arch in the standard configuration. Minimal atherosclerotic calcification of the aortic arch, without evidence for origin stenosis. The cervical common carotid arteries and cervical internal carotid arteries have a normal course, caliber, and contour. Atherosclerotic disease of the carotid bulbs is noted bilaterally, with approximately 30% stenosis on the right. The left carotid bulb appears widely patent. No hemodynamically significant stenosis of the carotid bifurcations or internal carotid arteries is present by NASCET criteria. The vertebral arteries have a normal course, caliber and contour. The vertebral artery origins are patent bilaterally and arise from the subclavian arteries. Degenerative changes are present within the cervical spine. The lung apices are clear. The soft tissues of the neck and other incidental structures are normal. CT PERFUSION: Increased mean transit time and decreased cerebral blood volume is noted within the right occipital lobe, corresponding to an area of encephalomalacia on CT. In addition, minimal increased TMax is noted within the left occipital lobe on series 434 image 4, possibly artifactual in nature given that no definite vessel abnormality is visualized on the CT angiogram. The remainder the brain appears grossly unremarkable, without areas of active oligemia or infarction. IMPRESSION: 1. No proximal occlusion within the [place]. 2. Diminutive caliber of the distal right posterior cerebral artery vascular branches in the area of known right occipital lobe encephalomalacia. 3. Approximately 30% stenosis of the proximal right internal carotid artery at the level of the carotid bulb. 4. Abnormal perfusion in the right occipital lobe corresponding to a chronic infarct. Minimal perfusion abnormality within the left occipital lobe may reflect a small area of acute ischemia, however the course of the left posterior cerebral artery appears unremarkable. This may be further evaluated with MRI brain. All qualitative and quantitative assessments of carotid bifurcation and proximal internal carotid artery stenosis are made referencing the distal internal carotid artery (NASCET criteria). SL: [id number] 01/29/2019 [facility] Brain wo contrast MRA Patient Name: SHYANN NAPIER : 1950. Age: 67 years. Gender: Male. MR: [id number]. Location: [facility]. Provider: MD Jesse Timmons MD. EXAM: 1. Brain wo contrast MRI 2. Brain wo contrast MRA. PROVIDED CLINICAL HISTORY: Stroke. Headache. Vision changes. TECHNIQUE: -- MR Brain: Multi-sequence, multi-planar MR of the brain without gadolinium contrast. -- MRA Brain: [id number] MR angiography of the [place] and intracranial arteries. MIP reformats. [...] abnormality. MRA BRAIN: GENERAL ASSESSMENT: -- The [place], petrous and cavernous segments of [...] (MR Brain, MRA Brain): 1. Acute right CARDIOVASCULAR TECHNICIAN territory infarct. 2. No intracranial mass or hemorrhage. 3. Mild chronic microangiopathic ischemic gliosis. 4. No significant abnormality of the intracranial arteries. SL: [id number] 01/07/2018 [facility] Brain wo contrast MRI Patient Name: SHYANN NAPIER : 1950. Age: 67 years. Gender: Male. MR: [id number]. Location: [facility]. Provider: MD Jesse Timmons MD. EXAM: 1. Brain wo contrast MRI 2. Brain wo contrast MRA. PROVIDED CLINICAL HISTORY: Stroke. Headache. Vision changes. TECHNIQUE: -- MR Brain: Multi-sequence, multi-planar MR of the brain without gadolinium contrast. -- MRA Brain: [id number] MR angiography of the [place] and intracranial arteries. MIP reformats. [...] abnormality. MRA BRAIN: GENERAL ASSESSMENT: -- The [place], petrous and cavernous segments of [...] (MR Brain, MRA Brain): 1. Acute right CARDIOVASCULAR TECHNICIAN territory infarct. 2. No intracranial mass or hemorrhage. 3. Mild chronic microangiopathic ischemic gliosis. 4. No significant abnormality of the intracranial arteries. SL: [id number] 01/07/2018 [facility] Carotid artery Doppler bilat US Patient Name: SHYANN NAPIER : 1950; Age: 67 years Male MR: [id number] Study: Carotid artery Doppler bilat US 01/06/2018 [...] occlusion High, low, or Variable undetectable SL: [id number] 01/06/2018 [facility] Chest 1view DX Clinical Indication: - weakness [...] congestion versus nonspecific airspace infiltrate, worse. SL: HEATHERPC 01/06/2018 [facility] Brain wo contrast CT CT HEAD WITHOUT [...] inferior right occipital lobe. SL: [id number] 01/06/2018 [facility] Consultation Notes No Data Provided for This Section Discharge Summaries No Data Provided for This Section History and Physicals No Data Provided for This Section Vital Signs Vital Sign Value Date Comments Source Temperature Oral (F) 98.2 F 01/31/2019 [facility] Heart Rate 55 01/31/2019 [facility] Respitory Rate 18 01/31/2019 [facility] Systolic (mm Hg) 145 01/31/2019 [facility] Diastolic (mm Hg) 80 01/31/2019 [facility] Systolic (mm Hg) 148 01/31/2019 [facility] Diastolic (mm Hg) 79 01/31/2019 [facility] Heart Rate 61 01/31/2019 [facility] Temperature Oral (F) 98.3 F 01/31/2019 [facility] Respitory Rate 17 01/31/2019 [facility] Systolic (mm Hg) 119 01/31/2019 [facility] Diastolic (mm Hg) 74 01/31/2019 [facility] Respitory Rate 18 01/31/2019 [facility] Heart Rate 60 01/31/2019 [facility] Temperature Oral (F) 97.7 F 01/31/2019 [facility] Weight 80.994 01/30/2019 [facility] BMI Calculated 27.15 01/30/2019 [facility] Height 172.72 cm 01/30/2019 [facility] BMI Calculated 28.95 01/30/2019 [facility] Weight 86.364 01/30/2019 [facility] Height 172.72 cm 01/30/2019 [facility] Respitory Rate 20 01/08/2018 [facility] Rate 62 01/08/2018 [facility] Systolic (mm Hg) 112 01/08/2018 [facility] Diastolic (mm Hg) 75 01/08/2018 [facility] Temperature Oral (F) 97.7 F 01/08/2018 [facility] Temperature Oral (F) 97.8 F 01/08/2018 [facility] Heart Rate 59 01/08/2018 [facility] Systolic (mm Hg) 129 01/08/2018 [facility] Diastolic (mm Hg) 74 01/08/2018 [facility] Temperature Oral (F) 98.0 F 01/08/2018 [facility] Heart Rate 62 01/08/2018 [facility] Systolic (mm Hg) 134 01/08/2018 [facility] Diastolic (mm Hg) 79 01/08/2018 [facility] Respitory Rate 18 01/08/2018 [facility] Respitory Rate 16 01/07/2018 [facility] BMI Calculated 32.55 01/06/2018 [facility] Weight 94.261 01/06/2018 [facility] Height 170.18 cm 01/06/2018 [facility] BMI Calculated 31.71 01/06/2018 [facility] Height 172.72 cm 01/06/2018 [facility] Weight 94.591 01/06/2018 [facility] Diastolic (mm Hg) 92 02/02/2014 [facility] Systolic (mm Hg) 157 02/02/2014 [facility] Respitory Rate 16 02/02/2014 [facility] Heart Rate 71 02/02/2014 [facility] Diastolic (mm Hg) 82 02/02/2014 [facility] Systolic (mm Hg) 142 02/02/2014 [facility] Respitory Rate 20 02/02/2014 [facility] Peripheral Pulse Rate 68 02/02/2014 [facility] Temperature Oral (F) 36.6 Alice 02/02/2014 [facility] Weight 31.44 01/31/2014 [facility] Systolic (mm Hg) 142 01/05/2014 [facility] Heart Rate 66 01/05/2014 [facility] Respitory Rate 16 01/05/2014 [facility] Diastolic (mm Hg) 81 01/05/2014 [facility] Temperature Oral (F) 36.2 Alice 01/05/2014 [facility] Peripheral Pulse Rate 60 01/05/2014 [facility] Diastolic (mm Hg) 84 01/05/2014 [facility] Systolic (mm Hg) 148 01/05/2014 [facility] Respitory Rate 16 01/05/2014 [facility] Weight 31.44 01/04/2014 [facility] Systolic (mm Hg) 142 02/02/2012 [facility] Respitory [...] 76 12/08/2011 [facility] Heart Rate 72 12/08/2011 [facility] Temperature Oral (F) 96.8 F 12/08/2011 [facility] Temperature Oral (F) 97.0 F 12/08/2011 [facility] Heart Rate 65 12/08/2011 [facility] Respitory Rate 20 12/08/2011 [facility] Systolic (mm Hg) 115 12/08/2011 [facility] Diastolic (mm Hg) 83 12/08/2011 [facility] Weight 73.007 11/20/2011 [facility] Weight 70.057 11/19/2011 [facility] Height 172.72 cm 11/19/2011 [facility] Height 172.72 cm 11/18/2011 [facility] Weight 70.455 11/18/2011 [facility] Diastolic (mm Hg) 76 09/25/2011 [facility] Systolic (mm Hg) 111 09/25/2011 [facility] Heart Rate 66 09/25/2011 [facility] Respitory Rate 18 09/25/2011 [facility] Respitory Rate 18 09/25/2011 [facility] Diastolic (mm Hg) 83 09/25/2011 [facility] Systolic (mm Hg) 118 09/25/2011 [facility] Heart Rate 68 09/25/2011 [facility] Diastolic (mm Hg) 72 09/25/2011 [facility] Systolic (mm Hg) 104 09/25/2011 [facility] Respitory Rate 18 09/25/2011 [facility] Heart Rate 74 09/25/2011 [facility] Height 172.72 cm 09/25/2011 [facility] Weight 77.273 09/25/2011 [facility] Encounters Location Location Details Encounter Type Encounter Number Reason For Visit Attending Provider ADM Date DC Date Status Source Not Sent LUNA [id number] DYSPHAGIA. LEILA BERTRAM 09/25/2011 09/25/2011 Active [facility] Not Sent Outpatient [id number] LEILA BERTRAM 09/29/2011 09/29/2011 Discharged [facility] Not Sent Inpatient [id number] UNABLE TO SWALLOW VINICIUS LARRY 11/19/2011 12/08/2011 Active [facility] Not Sent LUNA [id number] LEILA BERTRAM 02/02/2012 02/02/2012 Discharged [facility] Outpatient [id number] Sabas Bryce 01/05/2014 01/05/2014 Discharged [facility] Outpatient [id number] Sabas Bryce 02/02/2014 02/02/2014 Discharged [facility] Inpatient [id number] Jesse Timmons 01/06/2018 01/08/2018 [facility] Registered Surgical Day Care [id number] NEDA TAMEZ MD 08/07/2018 [facility] Discharged Recurring [id number] NEDA TAMEZ MD 09/02/2018 09/19/2018 [facility] Discharged Recurring [id number] NEDA TAMEZ MD 10/09/2018 10/17/2018 [facility] Inpatient [id number] Dian Hernandez 01/29/2019 01/31/2019 [facility] Phone Message [id number] 02/05/2019 02/07/2019 [facility] Phone Message [id number] 02/10/2019 02/12/2019 [facility] Ambulatory Pre-Reg [id number] Adam-Mitra Cornejo 02/28/2019 02/28/2019 [facility] Neuro Procedures Procedure Code Date Perfomer Comments Source KNEE ARTHROSCOPY/SURGERY [id number] 08/07/2018 [facility] X-ray of chest, two views [id number] 08/05/2018 [facility] Extracapsular cataract removal with insertion of intraocular lens prosthesis (1 stage procedure), manual or mechanical technique (eg, irrigation and aspiration or phacoemulsification) [id number] 02/02/2014 [facility] POSTERIOR CHAMBER INTRAOCULAR LENS 02/02/2014 [facility] Gallbladder excision [id number] [facility] Spinal fusion [id number] [facility] Tonsil operation [id number] [facility] BACK SURGERY X 2 [facility] CHOLECYSTECTOMY [facility] Assessment and Plan Assessment and Plan Date Source Extracted from:Title: Neurology Progress Note Author: Mylene Ramesh NP Date: 01/31/19 This is a 69 year old gentleman with PMH of HTN, HLD, DM II, CKD stage III, myasthenia gravis, and prior CVAs (last one 2-3 years ago per patient) without residual deficits aside from left hemianopsia. He presents to the ED with complaints of sudden vision changes to his left visual field at approximately 1000. Prior to that time he was in his normal state of health. He was at home climbing up the stairs carrying pizza when suddenly his vision became "hazy". He reports similar symptoms with a previous stroke. He called his neurologist who advised him to seek emergent evaluation. Freestanding clinicpatient was given ASA and reportedly CT brain was negative for acute pathology. Patient denies being on ASA or other blood thinners. He reports being compliant with his medications but is unable to recall what they are. Patient denies extremity weakness, headache, dizziness, speech difficulties, numbness, tingling, nausea, vomiting, fever, chills. MRI brain with acute left thalamic in farct as well as chronic right CARDIOVASCULAR TECHNICIAN infarct. Neurology consulted for further stroke work-up. Not a candidate for TPA or IAT due to nondisabling symptoms and NIH of 1. IMPRESSION: Acute left CARDIOVASCULAR TECHNICIAN territory, thalamic infarct superimposed on previous right CARDIOVASCULAR TECHNICIAN territory infarct leading to recrudescence of prior stroke symptoms (i.e. left hemianopsia) HTN DM II Myasthenia gravis PLAN: --stroke MPP --begin to normalize BP this afternoon with close neuro monitoring --A1c 7.0 maintain normoglycemia --LDL 30, continue statin therapy --daily ASA --DVTP: lovenox noted --PT/OT preferably in the AM hours --continue all home meds for myasthenia gravis --CTA neck negative for significant carotid stenosis --ECHO with EF of 60% --continuous tele monitoring to evaluate for atrial fibrillation --will need follow up with outpatient neurology Dr. Seema Cornejo --counseled patient on the importance of medication compliance --counseled the patient on his risk factors for stroke and signs/symptoms of stroke Stroke work-up completed. Dispo pending. Thank you for allowing us to participate in the care of this patient.We will sign off. Please page for any questions. Discussed with Dr. Keny Crystal --Mylene Ramesh APRN, ACNP Addendum by Keny Crystal MD on 01/31/2019 11:39 CDT Patient seen and examined by me. Agree with history, physical, assessment, and plan as documented by TELEPHONE MAINTAINER. exam stable stroke work up as above cont ASA, statin, DVT ppx, PT/OT please call with questions Extracted from:Title: Neurology Consult Note Author: Mylene Ramesh TELEPHONE MAINTAINER Date: 01/30/19 This is a 69 year old gentleman with PMH of HTN, HLD, DM II, CKD stage III, myasthenia gravis, and prior CVAs (last one 2-3 years ago per patient) without residual deficits aside from left hemianopsia. He presents to the ED with complaints of sudden vision changes to his left visual field at approximately 1000. Prior to that time he was in his normal state of health. He was at home climbing up the stairs carrying pizza when suddenly his vision became "hazy". He reports similar symptoms with a previous stroke. He called his neurologist who advised him to seek emergent evaluation. Freestanding clinicpatient was given ASA and reportedly CT brain was negative for acute pathology. Patient denies being on ASA or other blood thinners. He reports being compliant with his medications but is unable to recall what they are. Patient denies extremity weakness, headache, dizziness, speech difficulties, numbness, tingling, nausea, vomiting, fever, chills. MRI brain with acute left thalamic infarct as well as chronic right CARDIOVASCULAR TECHNICIAN infarct. Neurology consulted for further stroke work-up. Not a candidate for TPA or IAT due to nondisabling symptoms and NIH of 1. IMPRESSION: Acute left CARDIOVASCULAR TECHNICIAN territory, thalamic infarct superimposed on previous right CARDIOVASCULAR TECHNICIAN territory infarct leading to recrudescence of prior stroke symptoms (i.e. left hemianopsia) HTN DM II Myasthenia gravis PLAN: --stroke MPP --permissive HTN for 24-48 hours. SBP goal <220, DBP goal <120 --A1c 7.0 maintain normoglycemia --LDL 30, continue statin therapy --daily ASA --DVTP: lovenox noted --PT/OT preferably in the AM hours --continue all home meds for myasthenia gravis --CTA neck negative for significant carotid stenosis --ECHO pending --continuous tele monitoring to evaluate for atrial fibrillation --will need follow up with outpatient neurology Dr. Seema Cornejo --counseled patient on the importance of medication compliance --counseled the patient on his risk factors for stroke and signs/symptoms of stroke Thank you for allowing us to participate in the care of this patient. Please page for any questions. Discussed with Dr. Ethel Velez --Mylene Ramesh, PAYROLL COORDINATOR, ACNP Addendum by Ethel Velez MD on 01/30/2019 23:09 CDT Patient seen and examined with Mercedez Ramesh. 69 yo M with chronic R CARDIOVASCULAR TECHNICIAN stroke and small subacute strokes. Presents with worsened baseline VF deficit. Noncompliant with aspirin since last stroke. CTA negative for LVO. Resume asa daily. LDL 30, A1c 7.0. Cont statin, may reduce to home dose 40. Tight BP and glucose control. Echo pending. PT/OT evals. Extracted from:Title: History and Physical Author: Bud Davis MD Date: 01/30/19 This is a 67-lmfo-rtumgtwqhjbltn blood pressure,type 2 diabetes,chronic kidney disease stage III,priorfrontaland posterior lobe CVA, myasthenia graviswho is placed in observation status secondary tosudden onsetleft eye visual changesconcerning for an acute CVA. Manage on telemetry under continuous cardiac monitoring. Trend cardiac enzymes troponin q. 42.Begin aspirin 81 mgdaily. Begin high potencystatins with atorvastatin 80 mg p.o. daily. Order MRIof the brain without contrast.Patient will require neurology consultation. Order echocardiogram 2D with Doppler studies. Control blood pressurewith labetalol 20 mg IVevery 4 hours as needed systolic greater than 180. Control pain with morphine sulfate 2 mg IV every 4 hours as needed. Control nausea with Zofran 4 mg IV every 6 hours as needed. Begin Accu-Cheks before meals and at bedtime cover with high-dose insulin sliding scale. Order CBC complete metabolic panelTSH hemoglobin A1c. Resume [id number] mgtwice a day. Resume home medications as soon as a full list is brought for medication reconciliation. Initiate DVT prophylaxis GI prophylaxis. Additional recommendations will depend on results of the diagnostics. Acute cerebrovascular accident (CVA)(I63.9) Ambulatory dysfunction(R26.2) Ordered: Admit/Condition, 01/29/19 20:32:00 CDT, Status: Out Patient with Observation Services, Acute, Expected LOS: 1 Midnight, Bud Davis MD, Izzy BAI Review/Approve Yes, Isolation: No Isolation/Standard Precautions, Hemianopsia | Ambulatory dysfunction Hemianopsia(H53.47) Ordered: Admit/Condition, 01/29/19 20:32:00 CDT, Status: Out Patient with Observation Services, Acute, Expected LOS: 1 Midnight, Bud Davis MD, Izzy BAI Review/Approve Yes, Isolation: No Isolation/Standard Precautions, Hemianopsia | Ambulatory dysfunction Myasthenia gravis(G70.00) Ordered: Admit/Condition, 01/29/19 21:44:00 CDT, Status: Out Patient with Observation Services, Acute, Expected LOS: 1 Midnight, Neurology, Bud Davis MD, Admit MD Review/Approve Yes, Isolation: No Isolation/Standard Precautions, Vision changes | Uncontrolled hype... Uncontrolled diabetes mellitus(E11.65) Ordered: Admit/Condition, 01/29/19 21:44:00 CDT, Status: Out Patient with Observation Services, Acute, Expected LOS: 1 Midnight, NeurologySusan Chris Henry Uche MD, Admit Review/Approve Yes, Isolation: No Isolation/Standard Precautions, Vision changes | Uncontrolled hype... Uncontrolled hypertension(I10) Ordered: Admit/Condition, 01/29/19 21:44:00 CDT, Status: Out Patient with Observation Services, Acute, Expected LOS: 1 Midnight, NeurologySusan Chris Henry Uche MD, Admit Review/Approve Yes, Isolation: No Isolation/Standard Precautions, Vision changes | Uncontrolled hype... Vision changes(H53.9) Ordered: Admit/Condition, 01/29/19 21:44:00 CDT, Status: Out Patient with Observation Services, Acute, Expected LOS: 1 Midnight, NeurologySusan Chris Henry Uche MD, Admit Review/Approve Yes, Isolation: No Isolation/Standard Precautions, Vision changes | Uncontrolled hype... 01/31/2019 [facility] Extracted from:Title: Progress Note * Author: Igor Guzman MD Date: 01/08/18 Impression and Plan IMPRESSION: 1. Acute right CARDIOVASCULAR TECHNICIAN stroke with left homonymous hemianopsia and headache. 2. Myasthenia gravis, currently stable without exacerbation. 3. Chronic kidney disease. 4. Hyperlipidemia. RECOMMENDATIONS: 1. continue aspirin 325 mg daily. 2. Continue with statin. 3. Continue with Mestinon 60 mg b.i.d. 4. if cleared by PT/OT/AUTOMOTIVE SALES REPRESENTATIVE, then he is ok to discharge from neuro standpoint Extracted from:Title: History and Physical Author: Jesse Timmons MD [...] Dr. Guzman from neurology has been consulted Lovenox Full admission Addendum by Jesse Timmons MD on 01/06/2018 18:38 CDT Patient's code status at the moment is FULL. 01/08/2018 [facility] Plan of Care Plan of Care Date Source Prescriptions See Medication Section 10/18/2018 [facility] Social History Social History Date Source Social History TypeResponse Alcohol Never Smoking Status Never smoker; Ready to change: No; Concerns about tobacco use in household: No; Exposure to Tobacco Smoke None; Cigarette Smoking Last 365 Days No; Reg Smoking Cessation Counseling No entered on: 01/29/19 01/30/2019 [facility] Social History TypeResponse Alcohol Never Smoking Status Never smoker; Ready to change: No; Concerns about tobacco use in household: No; Exposure to Tobacco Smoke None; Cigarette Smoking Last 365 Days No; Reg Smoking Cessation Counseling No entered on: 01/29/19 01/30/2019 [facility] social history information available. 10/18/2018 [facility] Social History TypeResponse Smoking Status Never smoker; Ready to change: No; Concerns about tobacco use in household: No; Exposure to Tobacco Smoke None; Cigarette Smoking Last 365 Days No; Reg Smoking Cessation Counseling No entered on: 01/06/18 01/06/2018 [facility] Family History No Data Provided for This Section Advance Directives Order Name Results Value Date Source Advance Directives Advance Directives Directive Response Recorded Date/Time Does the patient have an advance directive? No 08/05/18 8:36am If yes, is advance directive on file with [facility]? No 08/05/18 8:36am If not on file with [facility] will patient provide a copy? No 08/05/18 8:36am Do you have a Directive to Physician? No 09/23/18 1:14pm Do you have a Medical Power of Desktop Engineer? No 09/23/18 1:14pm Do you have an out of hospital Do Not Resuscitate Order? No 02/04/19 1:14pm Do you have any special needs we should be aware of? No 09/23/18 1:14pm Do you have a support person here with you today? No 09/23/18 1:14pm Did patient receive Notice of Privacy Practices? No 09/23/18 1:14pm Did patient receive patient rights and responsibilities? No 09/23/18 1:14pm 10/18/2018 [facility] Functional Status No Data Provided for This Section
--- OUTSIDE RECORDS SUMMARY | 2019-04-30 11:39 | XMS REPORT | Summary of Care ---
Author Author [facility] Organization [facility] Address Unknown Phone Unavailable Encounter REGINE Salinas(CLARISSA) [id number] Date(s): 01/29/19 - 01/31/19 [facility] [address] [place] [address]- Encounter Diagnosis Unspecified visual disturbance (Final) - Discharge Disposition: Home or Self Care Attending Physician: Dian Hernandez MD Admitting Physician: Dian Hernandez MD Vital Signs 1 2 3 Most recent to oldest [Reference Range]: 172.72 cm (01/29/19 11:31 PM) 172.72 cm (01/29/19 7:00 PM) Height 98.2 DegF (01/31/19 12:00 PM) 98.3 DegF (01/31/19 8:34 AM) 97.7 DegF (01/31/19 4:00 AM) Temperature Oral [96.4-99.1 DegF] 145/80 mmHg *HI* (01/31/19 12:00 PM) 148/79 mmHg *HI* (01/31/19 8:34 AM) 119/74 mmHg (01/31/19 4:00 AM) Blood Pressure [90-140/60-90 mmHg] 18 BRMIN (01/31/19 12:00 PM) 17 BRMIN (01/31/19 8:34 AM) 18 BRMIN (01/31/19 4:00 AM) Respiratory Rate [14-20 BRMIN] 55 bpm *LOW* (01/31/19 12:00 PM) 61 bpm (01/31/19 8:34 AM) 60 bpm (01/31/19 4:00 AM) Peripheral Pulse Rate [60-100 bpm] 80.994 kg (01/29/19 11:31 PM) 86.364 kg (01/29/19 7:00 PM) Weight 27.15 m2 (01/29/19 11:31 PM) 28.95 m2 (01/29/19 7:00 PM) Body Mass Index Problem List Condition Effective Dates Status Health Status Informant Acute respiratory 11/19/11 Active failure(Confirmed) Diabetes Active mellitus(Confirmed) Dysphagia(Confirmed) Active hyperlipidemia(Confi Active rmed) Hyperlipidemia(Confi Active rmed) Myasthenia Active gravis(Confirmed) Allergies, Adverse Reactions, Alerts No Known Medication Allergies Medications acetaminophen 650 mg, 2 tab, Route: PO, Drug form: TAB, Q6H, Dosing Weight 86.364, kg, PRN Bryan n 1-3/Temp > 99.5 F, Start date: 01/29/19 21:44:00 CDT, Duration: 30 day, Stop date: 02/28/19 21:43:00 CDT Notes: Do not exceed 4 gm/day. (Same as: Tylenol) Start Date: 01/29/19 Stop Date: 01/31/19 Status: Discontinued amLODIPine 5 mg, 1 tab, Route: PO, Drug form: TAB, Daily, Dosing Weight 80.994, kg, Start d ate: 01/31/19 9:30:00 CDT, Duration: 30 day, Stop date: 03/02/19 9:00:00 CDT Notes: (Same as: Norvasc) Start Date: 01/31/19 Stop Date: 01/31/19 Status: Discontinued aspirin 81 mg tablet, enteric coated 81 mg=1 tab, PO, Q24H, # 30 tab, 0 Refill(s), Pharmacy: [facility] [id number] Start Date: 01/31/19 Stop Date: 03/02/19 Status: Ordered aspirin 81 mg tablet, enteric coated 81 mg, 1 tab, Route: PO, Drug form: ECTAB, Q24H, Dosing Weight 86.364, kg, Start date: 01/29/19 22:00:00 CDT, Duration: 30 day, Stop date: 02/27/19 22:00:00 CDT Notes: Do not crush or chew.(Same As: Ecotrin) Start Date: 01/29/19 Stop Date: 01/31/19 Status: Discontinued atorvastatin 80 mg, 2 tab, Route: PO, Drug form: TAB, Bedtime, Dosing Weight 86.364, kg, Star t date: 01/30/19 21:00:00 CDT, Duration: 30 day, Stop date: 02/28/19 21:00:00 CD T Notes: (Same as: Lipitor) Start Date: 01/30/19 Stop Date: 01/31/19 Status: Discontinued atorvastatin 40 mg oral tablet 80 mg=2 tab, PO, Bedtime, # 60 tab, 0 Refill(s), Pharmacy: [facility] [place] [id number] Start Date: 01/31/19 Stop Date: 03/02/19 Status: Ordered Dextrose 50% Syringe 12.5 gm, 25 mL, Route: IVP, Drug Form: INJ, Dosing Weight 86.364, kg, PRN, PRN B lood Glucose Results, Start date: 01/29/19 21:45:00 CDT, Duration: 30 day, Stop date: 02/28/19 21:44:00 CDT Start Date: 01/29/19 Stop Date: 01/31/19 Status: Discontinued Dextrose 50% Syringe 25 gm, 50 mL, Route: IVP, Drug Form: INJ, Dosing Weight 86.364, kg, PRN, PRN Blo od Glucose Results, Start date: 01/29/19 21:45:00 CDT, Duration: 30 day, Stop da te: 02/28/19 21:44:00 CDT Start Date: 01/29/19 Stop Date: 01/31/19 Status: Discontinued enalapril 0.625 mg, 0.5 mL, Route: IVP, Drug form: INJ, Q6H, Dosing Weight 86.364, kg, PRN Hypertension, Start date: 01/29/19 21:44:00 CDT, Duration: 30 day, Stop date: 0 02/28/19 21:43:00 CDT Notes: (Same as: Vasotec-IV) Start Date: 01/29/19 Stop Date: 01/31/19 Status: Discontinued enoxaparin 40 mg, 0.4 mL, Route: SUB-Q, Drug form: INJ, [id number], Dosing Weight 86.364, kg, Start date: 01/29/19 22:00:00 CDT, Stop date: 02/27/19 22:00:00 CDT Notes: (Same as: Lovenox) Start Date: 01/29/19 Stop Date: 01/31/19 Status: Discontinued famotidine 20 mg, 1 tab, Route: PO, Drug form: TAB, Q24H, Dosing Weight 86.364, kg, Start d ate: 01/29/19 22:00:00 CDT, Duration: 30 day, Stop date: 02/27/19 22:00:00 CDT Notes: (Same as: Pepcid) Start Date: 01/29/19 Stop Date: 01/31/19 Status: Discontinued glucagon 1 mg, Route: IM, Drug form: PDR/INJ, PRN, Dosing Weight 86.364, kg, PRN Blood Gl ucose Results, Start date: 01/29/19 21:45:00 CDT, Duration: 30 day, Stop date: 0 02/28/19 21:44:00 CDT Start Date: 01/29/19 Stop Date: 01/31/19 Status: Discontinued Humalog 15 unit, 0.15 mL, Route: SUB-Q, Drug form: SOLN, TID, Dosing Weight 80.994, kg, Start date: 01/31/19 9:00:00 CDT, Duration: 30 day, Stop date: 03/01/19 17:00:00 CDT Notes: (Same as: Humalog) Roll in palms of hands gently; Do not shake vigorously . WASTE: F/P - Black; E - Municipal Trash BinStable for 28 days at room tempera ture.Expires in days from Date Start Date: 01/31/19 Stop Date: 01/31/19 Status: Discontinued insulin glargine 55 unit, 0.55 mL, Route: SUB-Q, Drug form: SOLN, Bedtime, Start date: 01/30/19 2 1:00:00 CDT, Duration: 30 day, Stop date: 02/28/19 21:00:00 CDT Notes: (Same as: Lantus)Do not hold insulin without contacting prescriberWASTE: F/P - Black; E - Municipal Trash Bin"single patient use only"Stable for 28 days at room temperature Expires in days from Date Start Date: 01/30/19 Stop Date: 01/31/19 Status: Discontinued insulin lispro 8 unit, 0.08 mL, Route: SUB-Q, Drug form: SOLN, Bedtime, Dosing Weight 86.364, k g, PRN Blood Glucose Results, Start date: 01/29/19 21:45:00 CDT, Duration: 30 da y, Stop date: 02/28/19 21:44:00 CDT Notes: (Same as: Humalog) Roll in palms of hands gently; Do not shake vigorously . WASTE: F/P - Black; E - Municipal Trash BinStable for 28 days at room [facility].Expires in days from Date Start Date: 01/29/19 Stop Date: 01/31/19 Status: Discontinued insulin lispro 12 unit, 0.12 mL, Route: SUB-Q, Drug form: SOLN, TID-Before Meals, Dosing Weight 86.364, kg, PRN Blood Glucose Results, Start date: 01/29/19 21:45:00 CDT, Durat ion: 30 day, Stop date: 02/28/19 21:44:00 CDT Notes: (Same as: Humalog) Roll in palms of hands gently; Do not shake vigorously . WASTE: F/P - Black; E - Municipal Trash BinStable for 28 days at room [facility].Expires in days from Date Start Date: 01/29/19 Stop Date: 01/31/19 Status: Discontinued insulin lispro 9 unit, 0.09 mL, Route: SUB-Q, Drug form: SOLN, TID-Before Meals, Dosing Weight 86.364, kg, PRN Blood Glucose Results, Start date: 01/29/19 21:45:00 CDT, Durati on: 30 day, Stop date: 02/28/19 21:44:00 CDT Notes: (Same as: Humalog) Roll in palms of hands gently; Do not shake vigorously . WASTE: F/P - Black; E - Municipal Trash BinStable [facility]Ex[facility] in days from Date Start Date: 01/29/19 Stop Date: 01/31/19 Status: Discontinued insulin lispro 3 unit, 0.03 mL, Route: SUB-Q, Drug form: SOLN, TID-Before Meals, Dosing Weight 86.364, kg, PRN Blood Glucose Results, Start date: 01/29/19 21:45:00 CDT, Durati on: 30 , Stop date: 02/28/19 21:44:00 CDT Notes: (Same as: Humalog) Roll in palms of hands gently; Do not shake vigorously . WASTE: F/P - Black; E - Municipal Trash BinStable for 28 days at [facility].Expires in days from Date Start Date: 01/29/19 Stop Date: 01/31/19 Status: Discontinued insulin lispro 6 unit, 0.06 mL, Route: SUB-Q, Drug form: SOLN, TID-Before Meals, Dosing Weight 86.364, kg, PRN Blood Glucose Results, Start date: 01/29/19 21:45:00 CDT, Durati on: 30 , Stop date: 02/28/19 21:44:00 CDT Notes: (Same as: Humalog) Roll in palms of hands gently; Do not shake vigorously . WASTE: F/P - Black; E - Municipal Trash BinStable for 28 days at [facility].Expires in days from Date Start Date: 01/29/19 Stop Date: 01/31/19 Status: Discontinued insulin lispro 6 unit, 0.06 mL, Route: SUB-Q, Drug form: SOLN, Bedtime, Dosing Weight 86.364, k g, PRN Blood Glucose Results, Start date: 01/29/19 21:45:00 CDT, Duration: 30 da y, Stop date: 02/28/19 21:44:00 CDT Notes: (Same as: Humalog) Roll in palms of hands gently; Do not shake vigorously . WASTE: F/P - Black; E - Municipal Trash BinStable for 28 days at [facility].Expires in days from Date Start Date: 01/29/19 Stop Date: 01/31/19 Status: Discontinued insulin lispro 4 unit, 0.04 mL, Route: SUB-Q, Drug form: SOLN, Bedtime, Dosing Weight 86.364, k g, PRN Blood Glucose Results, Start date: 01/29/19 21:45:00 CDT, Duration: 30 da y, Stop date: 02/28/19 21:44:00 CDT Notes: (Same as: Humalog) Roll in palms of hands gently; Do not shake vigorously . WASTE: F/P - Black; E - Municipal Trash BinStable for 28 days at [facility].Expires in days from Date Start Date: 01/29/19 Stop Date: 01/31/19 Status: Discontinued insulin lispro 15 unit, 0.15 mL, Route: SUB-Q, Drug form: SOLN, TID-Before Meals, Dosing Weight 86.364, kg, PRN Blood Glucose Results, Start date: 01/29/19 21:45:00 CDT, Durat ion: 30 day, Stop date: 02/28/19 21:44:00 CDT Notes: (Same as: Humalog) Roll in palms of hands gently; Do not shake vigorously . WASTE: F/P - Black; E - Municipal Trash BinStable for 28 days at [facility].Expires in days from Date Start Date: 01/29/19 Stop Date: 01/31/19 Status: Discontinued insulin lispro 10 unit, 0.1 mL, Route: SUB-Q, Drug form: SOLN, Bedtime, Dosing Weight 86.364, k g, PRN Blood Glucose Results, Start date: 01/29/19 21:45:00 CDT, Duration: 30 da y, Stop date: 02/28/19 21:44:00 CDT Notes: (Same as: Humalog) Roll in palms of hands gently; Do not shake vigorously . WASTE: F/P - Black; E - Municipal Trash BinStable for 28 days at room tempera ture.Expires in days from Date Start Date: 01/29/19 Stop Date: 01/31/19 Status: Discontinued labetalol 10 mg, 2 mL, Route: IVP, Drug form: INJ, Q10Min, Dosing Weight 86.364, kg, PRN H ypertension, For SBP > 180 mmHg and/or DBP > 105 mmHg, Start date: 01/29/19 21:44:00 CDT, Duration: 30 day, Stop date: 02/28/19 21:43:00 CDT Notes: (Same as: Normodyne, Trandate)Push over 2 minutes Give bolus over 2-3 mi nutes. Start Date: 01/29/19 Stop Date: 01/31/19 Status: Discontinued Levemir Route: SUB-Q, Bedtime, Dosing Weight 80.994, kg, Start date: 01/30/19 21:00:00 C DT, Duration: 30 day, Stop date: 02/28/19 21:00:00 CDT Start Date: 01/30/19 Stop Date: 01/30/19 Status: Deleted mycophenolate mofetil 500 mg, 1 tab, Route: PO, Drug form: TAB, BID, Dosing Weight 80.994, kg, Start d ate: 01/31/19 9:00:00 CDT, Duration: 30 day, Stop date: 03/01/19 17:00:00 CDT Notes: SEPARATE ANTACIDS from [employer] by 2 hrs.(Same As: CellCept) Start Date: 01/31/19 Stop Date: 01/31/19 Status: Discontinued Omnipaque 350 injectable solution 100 mL, Route: IVP, Drug Form: SOLN, Dosing Weight 86.364, kg, ONCALL, For CTA e xam with GFR > 45 mL/min, STAT, Start date: 01/29/19 19:50:00 CDT, Duration: 1 doses or times Notes: (Same as:Omnipaque 350)WASTE: F/P - Black; E - Municipal Trash Bin Start Date: 01/29/19 Stop Date: 01/29/19 Status: Completed ondansetron 4 mg, 2 mL, Route: IVP, Drug form: INJ, Q8H, Dosing Weight 86.364, kg, PRN Nause a & Vomiting, Start date: 01/29/19 21:44:00 CDT, Duration: 30 day, Stop date: 02/28/19 21:43:00 CDT Notes: (Same as: Arminda) MEDICATION WASTE Product Size: 4 mgProduct Was casper: ___ mg Start Date: 01/29/19 Stop Date: 01/31/19 Status: Discontinued pyridostigmine 60 mg, 1 tab, Route: PO, Drug form: TAB, TID, Dosing Weight 80.994, kg, Start da te: 01/31/19 9:00:00 CDT, Duration: 30 day, Stop date: 03/01/19 17:00:00 CDT Notes: (Same as: Mestinon) Start Date: 01/31/19 Stop Date: 01/31/19 Status: Discontinued Saline Flush 0.9% 10 mL, Route: IVP, Drug Form: INJ, Dosing Weight 86.364, kg, PRN, PRN Line Flush , Start date: 01/29/19 19:13:00 CDT, Duration: 30 day, Stop date: 02/28/19 19:12 :00 CDT Notes: Same as: BD Posiflush Sterile Start Date: 01/29/19 Stop Date: 01/31/19 Status: Discontinued Saline Flush 0.9% 10 ml, Route: IVP, Drug Form: INJ, Dosing Weight 86.364, kg, Q12H, Start date: 0 01/30/19 9:00:00 CDT, Duration: 30 day, Stop date: 02/28/19 21:00:00 CDT Notes: Same as: BD Posiflush Sterile Start Date: 01/30/19 Stop Date: 01/31/19 Status: Discontinued Saline Flush 0.9% 10 ml, Route: IVP, Drug Form: INJ, Dosing Weight 86.364, kg, PRN, PRN Line Flush , Start date: 01/29/19 21:44:00 CDT, Duration: 30 day, Stop date: 02/28/19 21:43 :00 CDT Notes: Same as: BD Posiflush Sterile Start Date: 01/29/19 Stop Date: 01/31/19 Status: Discontinued Vitamin D3 1000 intl units oral tablet 1,000 IntlUnit, 1 tab, Route: PO, Drug form: TAB, Daily, Dosing Weight 80.994, k g, Start date: 01/31/19 9:00:00 CDT, Duration: 30 day, Stop date: 03/01/19 9:00: 00 CDT Notes: Same as : Vitamin D3 Start Date: 01/31/19 Stop Date: 01/31/19 Status: Discontinued Results 1 2 3 Most recent to oldest [Reference Range]: 3.2 K/CMM (01/30/19 3:18 AM) 4.2 K/CMM (01/29/19 8:10 PM) Neutrophils # [1.5-8.1 K/CMM] 1.3 K/CMM (01/30/19 3:18 AM) 1.2 K/CMM (01/29/19 8:10 PM) Lymphocytes # [1.0-5.5 K/CMM] 0.6 K/CMM (01/30/19 3:18 AM) 0.5 K/CMM (01/29/19 8:10 PM) Monocytes # [0.0-0.8 K/CMM] 0.1 K/CMM (01/30/19 3:18 AM) 0.1 K/CMM (01/29/19 8:10 PM) Eosinophils # [0.0-0.5 K/CMM] 0.0 K/CMM (01/29/19 8:10 PM) Basophils # [0.0-0.2 K/CMM] 46 mL/min/1.73m2 1 *NA* (01/30/19 12:17 AM) 43 mL/min/1.73m2 2 *NA* (01/29/19 8:10 PM) eGFR 0.8 (01/30/19 12:17 AM) A/G Ratio [0.7-1.6] 3.3 g/dL *LOW* (01/30/19 12:17 AM) Albumin Lvl [3.5-5.0 g/dL] 119 unit/L (01/30/19 12:17 AM) Alk Phos [39-136 unit/L] 49 unit/L (01/30/19 12:17 AM) ALT [0-65 unit/L] 12.4 mEq/L (01/30/19 12:17 AM) 10.4 mEq/L (01/29/19 8:10 PM) AGAP [10.0-20.0 mEq/L] 47 unit/L *HI* (01/30/19 12:17 AM) AST [0-37 unit/L] 15 (01/30/19 12:17 AM) B/C Ratio [6-25] 0.6 % (01/30/19 3:18 AM) 0.6 % (01/29/19 8:10 PM) Basophils [0.0-1.0 %] 23 mg/dL *HI* (01/30/19 12:17 AM) 25 mg/dL *HI* (01/29/19 8:10 PM) BUN [7-22 mg/dL] 8.7 mg/dL (01/30/19 12:17 AM) 8.4 mg/dL *LOW* (01/29/19 8:10 PM) Calcium Lvl [8.5-10.5 mg/dL] 2.80 *LOW* (01/30/19 3:18 AM) CHD Risk [4.00-7.30] 126 mg/dL (01/30/19 3:18 AM) Chol [<=199 mg/dL] 270 unit/L *HI* (01/29/19 8:10 PM) Total CK [12-191 unit/L] 105 mEq/L (01/30/19 12:17 AM) 106 mEq/L (01/29/19 8:10 PM) Chloride Lvl [95-109 mEq/L] 24 mEq/L (01/30/19 12:17 AM) 25 mEq/L (01/29/19 8:10 PM) CO2 [24-32 mEq/L] 1.50 mg/dL *HI* (01/30/19 12:17 AM) 1.60 mg/dL *HI* (01/29/19 8:10 PM) Creatinine Lvl [0.50-1.40 mg/dL] 2.5 % (01/30/19 3:18 AM) 1.3 % (01/29/19 8:10 PM) Eosinophils [0.0-4.0 %] 4.3 g/dL *HI* (01/30/19 12:17 AM) Globulin [2.7-4.2 g/dL] 121 mg/dL *HI* (01/30/19 12:17 AM) 103 mg/dL *HI* (01/29/19 8:10 PM) Glucose Lvl [70-99 mg/dL] 41.9 % *LOW* (01/30/19 3:18 AM) 42.7 % (01/29/19 8:10 PM) Hct [42.0-54.0 %] 45 mg/dL *LOW* (01/30/19 3:18 AM) HDL [>=61 mg/dL] 13.8 g/dL *LOW* (01/30/19 3:18 AM) 13.8 g/dL *LOW* (01/29/19 8:10 PM) Hgb [14.0-18.0 g/dL] 7.0 % *HI* (01/30/19 3:18 AM) Hgb A1C [<=5.6 %] 1.08 (01/29/19 8:10 PM) INR [0.85-1.17] 4.4 mEq/L (01/30/19 12:17 AM) 4.4 mEq/L (01/29/19 8:10 PM) Potassium Lvl [3.5-5.1 mEq/L] 30 mg/dL (01/30/19 3:18 AM) LDL (Calculated) [<=99 mg/dL] 25.1 % (01/30/19 3:18 AM) 20.3 % (01/29/19 8:10 PM) Lymphocytes [20.0-40.0 %] 28.0 pg (01/30/19 3:18 AM) 27.4 pg (01/29/19 8:10 PM) MCH [27.0-31.0 pg] 33.0 g/dL (01/30/19 3:18 AM) 32.3 g/dL (01/29/19 8:10 PM) MCHC [32.0-36.0 g/dL] 84.8 fL (01/30/19 3:18 AM) 84.9 fL (01/29/19 8:10 PM) MCV [80.0-94.0 fL] 2.2 mg/dL (01/30/19 12:17 AM) Magnesium Lvl [1.8-2.4 mg/dL] 11.8 % (01/30/19 3:18 AM) 8.0 % (01/29/19 8:10 PM) Monocytes [2.0-12.0 %] 9.2 fL (01/30/19 3:18 AM) 9.1 fL (01/29/19 8:10 PM) MPV [7.4-10.4 fL] 137 mEq/L (01/30/19:17 AM) 137 mEq/L (01/29/19 8:10 PM) Sodium Lvl [135-145 mEq/L] 213 K/CMM (01/30/19:18 AM) 250 K/CMM (01/29/19 8:10 PM) Platelet [133-450 K/CMM] 60.0 % (01/30/19 3:18 AM) 69.8 % (01/29/19 8:10 PM) Segs [45.0-75.0 %] 7.6 g/dL (01/30/19 12:17 AM) Total Protein [6.4-8.4 g/dL] 13.8 seconds (01/29/19 8:10 PM) PT [12.0-14.7 seconds] 23.8 seconds (01/29/19 8:10 PM) PTT [22.9-35.8 seconds] 4.94 M/CMM (01/30/19 3:18 AM) 5.03 M/CMM (01/29/19 8:10 PM) RBC [4.70-6.10 M/CMM] 14.2 % (01/30/19 3:18 AM) 14.6 % *HI* (01/29/19 8:10 PM) RDW [11.5-14.5 %] 0.6 mg/dL (01/30/19 12:17 AM) Bili Total [0.2-1.3 mg/dL] 254 mg/dL *HI* (01/30/19 3:18 AM) Trig [<=149 mg/dL] <0.02 ng/mL (01/30/19 3:18 AM) <0.02 ng/mL (01/30/19 12:17 AM) <0.02 ng/mL (01/29/19 8:10 PM) Troponin-I [0.00-0.40 ng/mL] 5.3 K/CMM (01/30/19 3:18 AM) 6.1 K/CMM (01/29/19 8:10 PM) WBC [3.7-10.4 K/CMM] Non-Reactive *NA* (01/30/19 3:18 AM) Treponemal Ab [Non-Reactive] 51 *NA* (01/30/19 3:18 AM) VLDL 1Result Comment: The eGFR is calculated using [...] be mul tiplied by the estimated BMI. 2Result Comment: The eGFR is calculated using the [...] be mul tiplied by the estimated BMI. Immunizations No data available for this section [...] No entered on: 01/29/19 Assessment and Plan Extracted from: Title: Neurology Progress Note Author: Mylene Ramesh ELECTRICAL ENGINEER Date: 01/31/19 This is a 69 year [...] fever, chills. 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 Neurology consulted for further stroke work-up. Not a candidate for TPA or IAT due to nondisabling symptoms and NIH of 1. IMPRESSION: Acute left HAZARDOUS WASTE MANAGEMENT SPECIALIST territory, thalamic infarct superimposed on previous right HAZARDOUS WASTE MANAGEMENT SPECIALIST territory infarct leading to recrudescence of prior [...] questions. Discussed with Dr. Keny Crystal --Mylene Ramesh, WARP TRUCKER, ACNP Addendum by Patient seen and examined by me. Agree with history, physical, assessment, and plan as Marah, documented by ELECTRICAL ENGINEER. Keny Siegel MD exam stable on stroke work up as above 01/31/2019 cont ASA, statin, DVT ppx, PT/OT 11:39 CDT please call with questions Extracted from: Title: Neurology Consult Note Author: Mylene Ramesh ELECTRICAL ENGINEER Date: 01/30/19 This is a 69 year [...] thalamic infarct as well as chronic right HAZARDOUS WASTE MANAGEMENT SPECIALIST infarct. Neurology consulted for further stroke work-up. Not a candidate for TPA or IAT due to nondisabling symptoms and NIH of 1. IMPRESSION: Acute left HAZARDOUS WASTE MANAGEMENT SPECIALIST territory, thalamic infarct superimposed on previous right HAZARDOUS WASTE MANAGEMENT SPECIALIST territory infarct leading to recrudescence of prior [...] Discussed with Dr. Ethel Velez --Mylene Ramesh, WARP TRUCKER, ACNP Addendum by Agustin, Patient seen and examined with Mercedez Ramesh. 69 yo M with chronic R HAZARDOUS WASTE MANAGEMENT SPECIALIST stroke and small Ethel R subacute strokes. Presents with worsened baseline VF deficit. Noncompliant with aspirin MD on since last stroke. CTA negative for LVO. Resume asa daily. LDL 30, A1c 7.0. Cont statin, 01/30/2019 may reduce to home dose 40. Tight BP and glucose control. Echo pending. PT/OT evals. 23:09 CDT Extracted from: Title: History and Physical Author: Bud Davis MD Date: 01/30/19 This is a 38-pqtf-ldcncseahmkkwm blood pressure,type 2 diabetes,chronic kidney disease stage III,priorfrontaland posterior lobe CVA, myasthenia graviswho is placed in observation status secondary tosudden onsetleft eye visual changesconcerning for an acute CVA. Manage on telemetry under continuous cardiac monitoring. Trend cardiac enzymes troponin q. 4 2.Begin aspirin 81 mgdaily. Begin high potencystatins with [...] CBC complete metabolic panelTSH hemoglobin A1c. Resume Uiqrovzq30 mgtwice a day. Resume home medications as [...] 1 Midnight, NeurologySusan Chris Henry Uche MD, Izzy BAI Review/Approve Yes, Isolation: No Isolation/Standard Precautions, Vision changes | Uncontrolled hype... Uncontrolled diabetes mellitus(E11.65) Ordered: Admit/Condition, 01/29/19 21:44:00 CDT, Status: Out Patient with Observation Services, Acute, Expected LOS: 1 Midnight, Susan Laguerre Chris Henry Uche MD, Izzy BAI Review/Approve Yes, Isolation: No Isolation/Standard Precautions, Vision changes | Uncontrolled hype... Uncontrolled hypertension(I10) Ordered: Admit/Condition, 01/29/19 21:44:00 CDT, Status: Out Patient with Observation Services, Acute, Expected LOS: 1 Midnight, Susan Laguerre Chris Henry Uche MD, Izzy BAI Review/Approve Yes, Isolation: No Isolation/Standard Precautions, Vision changes | Uncontrolled hype... Vision changes(H53.9) Ordered: Admit/Condition, 01/29/19 21:44:00 CDT, Status: Out Patient with Observation Services, Acute, Expected LOS: 1 Midnight, Neurology, [facility], Bud Wells MD, Admit MD Review/Approve Yes, Isolation: No Isolation/Standard Precautions, Vision changes | Uncontrolled hype...
--- OUTSIDE RECORDS SUMMARY | 2019-04-30 11:39 | XMS REPORT | Summary of Care ---
Author Author [facility] Address Unknown Phone Unavailable Encounter HQ Románr_tiffani(FIN) [id number] Date(s): 02/10/19 - 02/11/19 [facility] [address] [place] [address]- [phone] Vital Signs No data available for this [...]
--- OUTSIDE RECORDS SUMMARY | 2019-04-30 11:39 | XMS REPORT | Summary of Care ---
Author Author [facility] Address Unknown Phone Unavailable Encounter [facility] Románr_tiffani(FIN) [id number] Date(s): 02/05/19 - 02/06/19 [facility] [address] [place] [address]- [phone] Vital Signs No data available for this [...]
[2019-04-30 13:10] VITALS: BP 135/87
[2019-04-30 13:41] LABS: WBC,FECAL (FECAL LACTOFERRIN) NEGATIVE (NEGATIVE)
[2019-04-30 15:01] LABS: C DIFFICILE TOXIN A&B AMP PROB NEGATIVE (NEGATIVE)
--- NOTE | 2019-04-30 17:58 | Operative Report ---
DATE OF PROCEDURE: 04/30/2019 SURGEON: Roumlo Antonio MD PROCEDURES: EGD with esophageal dilatation and biopsies and colonoscopy with polypectomy and biopsies. INDICATIONS FOR EGD: Dysphagia. INDICATIONS FOR COLONOSCOPY: Surveillance colonoscopy, personal history of colon polyps. MEDICATIONS: The patient was done under MAC, please see anesthesiologist's note. PROCEDURE IN DETAIL: With the patient in left lateral decubitus position, a flexible fiberoptic Olympus gastroscope was introduced into the esophagus under direct visualization without any difficulty. There was some patchy erythema noted in distal esophagus. A mild stricture was noted at the GE junction that was dilated to size 52-[place] Lewis. The scope was then advanced with ease into the stomach traversing a small sliding hiatal hernia. Mucosa overlying the antrum and the body revealed some patchy intense erythema and low-grade to moderate edema, and biopsies were obtained and sent to stain for H. pylori. Hyperplastic-appearing polyps were noted in the body of the stomach and somewhat partially excised with the cold biopsy forceps. Pylorus was of normal contour and shape, it was intubated with ease and the scope was advanced all the way to the second portion of the duodenum. The scope was then withdrawn slowly and biopsies were obtained from the proximal second portion to rule out sprue. There were some nodules noted in the duodenal bulb and biopsies were obtained. The scope was then withdrawn back into the stomach and retroflexed, mucosa overlying the fundus and the cardia appeared to be within normal limits. The scope was then straightened out, it was subsequently withdrawn, and the patient tolerated the procedure well. IMPRESSION: 1. Mild distal esophagitis. 2. Esophageal stricture at GE junction dilated to size 52-[place] Lewis. 3. Small sliding hiatal hernia. 4. Gastritis, biopsied, biopsies sent to stain for Helicobacter pylori. 5. Gastric polyps, body, some were partially excised with the cold biopsy forceps. 6. Duodenal bulb nodule, biopsied. 7. Rule out sprue. PLAN: Follow up histology. Initiate Protonix 40 mg one p.o. q.a.m. before meals. The patient was then turned around and after adequate lubrication of the anal canal, a flexible fiberoptic Olympus colonoscope was inserted into the rectum with ease and advanced all the way to the cecum. Mucosa overlying the cecum appeared to be within normal limits. The ileocecal valve was intubated and the scope was advanced into the terminal ileum and biopsies were obtained. The scope was then withdrawn back into the colon. It was then withdrawn slowly. One polyp was snared from the proximal ascending colon and site was hemoclipped. The rest of the ascending appeared to be within normal limits. One polyp was hot biopsied from the transverse colon. One polyp was hot biopsied from the descending colon and one polyp was snared from the sigmoid colon. The rectum grossly appeared to be within normal limits. The scope was then retroflexed into the distal rectum and small internal hemorrhoids were noted, none of which was actively bleeding. The scope was then straightened out and it was subsequently withdrawn after securing an adequate stool specimen that was sent for the appropriate stool studies. The patient tolerated the procedure well. IMPRESSION: 1. Ascending colon polyp, snared and site hemoclipped. 2. Transverse colon polyp, hot biopsied. 3. Descending colon polyp, hot biopsied. 4. Sigmoid colon polyp, snared. 5. Internal hemorrhoids, none actively bleeding. PLAN: Follow up histology. Follow up stool studies. Initiate Visbiome one p.o. b.i.d. The patient might benefit from a followup colonoscopy in 3 years. MD SEBAS Richardson/CUONG /[id number]
== END | disposition home or self-care (01) ==
LOC: OR 10:26
PROVIDERS: ATTEND Internal Medicine Gastroenterology
DX: K22.2 Esophageal obstruction (principal); D12.4 Benign neoplasm of descending colon; D12.2 Benign neoplasm of ascending colon; K29.70 Gastritis, unspecified, without bleeding; K31.89 Other diseases of stomach and duodenum; K20.9 Esophagitis, unspecified; K59.00 Constipation, unspecified; K44.9 Diaphragmatic hernia without obstruction or gangrene; K64.8 Other hemorrhoids; I69.398 Other sequelae of cerebral infarction; H53.8 Other visual disturbances; I10 Essential (primary) hypertension; E11.9 Type 2 diabetes mellitus without complications; G70.00 Myasthenia gravis without (acute) exacerbation; Z01.810 Encounter for preprocedural cardiovascular examination; Z01.812 Encounter for preprocedural laboratory examination; Z79.4 Long term (current) use of insulin; Z79.84 Long term (current) use of oral hypoglycemic drugs; Z79.82 Long term (current) use of aspirin; Z87.891 Personal history of nicotine dependence; Z80.0 Family history of malignant neoplasm of digestive organs
CPT/HCPCS: 36415 ×2; 43239; 43450; 45384; 45385; 82948; 83630; 83993; 85025; 87045; 87177; 87328; 87493; 88305; 88312; 93005; J2250; J2704; J3010; 45378; 45380